=== PATIENT | female | born 1980 | race Caucasian/White ===

== ENCOUNTER 2023-09-12 21:43 | Emergency (ER) | payer BC, SELFPAY ==
[2023-09-12] VITALS (7 sets, daily range): BP systolic 118–142; BP diastolic 73–99; PULSE 95–119; RESP 13–20; TEMP 37.2; O2SAT 99–100; BMI 40.2
--- NOTE | 2023-09-12 21:57 | ECG_ITS ---
APPROVED REPORT Exam: Resting ECG HR:105 bpm ECG Measurements Heart Rate 105 AXES DE 158 P 62 QRSd 91 QRS 31 QT 315 T 58 QTc 376 Conclusion SINUS TACHYCARDIA Electronically signed by : RADHA RYAN, 09/15/2023 02:09:32
--- NOTE | 2023-09-12 22:00 | XR_ITS ---
PROCEDURE INFORMATION: Exam: XR Chest Exam date and time: 09/12/2023 11:01 PM Age: 43 years old Clinical indication: Other: Heart palpitations TECHNIQUE: Imaging protocol: Radiologic exam of the chest. Views: 2 views. COMPARISON: No relevant prior studies available. FINDINGS: Lungs: Calcified granuloma in the right upper lobe. Pleural spaces: No large effusion or pneumothorax. Heart/Mediastinum: No evidence of mediastinal widening or cardiac silhouette enlargement; the mediastinum and heart appear within normal limits for contour and size. Bones/joints: There is a dextroscoliotic curvature of the spine. IMPRESSION: No dense parenchymal consolidation, pleural effusion, or pneumothorax.
[2023-09-12 22:14] LABS: Basophils # 0.1 K/mm3 (0-0.2); Eosinophils # 0.3 K/mm3 (0.0-0.4); Eosinophils % 3.3 % (0.1-12.0); Hematocrit 44.2 % (37.0-47.0); Hemoglobin 14.3 g/dL (12.2-16.2); Lymphocytes % 21.5 % (10-50); Mean Corpuscular HGB Conc 32.3 g/dL (31.8-35.4); Mean Corpuscular Hemoglobin 27.7 pg (27.0-31.2); Mean Corpuscular Volume 85.8 fl (81-99); Mean Platelet Volume 7.4 fl (7.4-10.4); Monocytes # 0.5 K/mm3 (0.1-1.0); Monocytes % 5.4 % (1.7-9.3); Neutrophils # 6.5 K/mm3 (1.8-7.8); Neutrophils % 68.8 % (37.0-80.0); Platelet Count 305 K/mm3 (142-424); Red Blood Count 5.16 M/mm3 (4.20-5.40); Red Cell Distribution Width 14.4 % (11.5-17.5); White Blood Count 9.4 K/mm3 (4.8-10.8)
--- NOTE | 2023-09-12 22:14 | HMH.EDGENADL ---
Discharge Plan Disposition Patient Disposition: Home, Self-Care Condition: Good Chief Complaint: Arrhythmia/Palpitations Prescriptions Prescriptions: No Action Mirena 20 mcg/24 hours (5 yrs) 52 mg intrauterine device 1 device INTRAUTERI Referrals Follow up/Referrals: Ewelina Curry [Primary Care Provider] - See instructions Ricardo Fletcher MD [Staff Physician] - See instructions (Episode of palpitations, found to have sinus tachycardia of 130-160 at rest.) Clinical Impressions Clinical Impression: Sinus tachycardia Instructions Patient Instructions: DI for Palpitations Discharge ED Provider: Sukhwinder Lai General Adult HPI <Sukhwinder Lai MD - Last Filed: 09/12/23 23:31> General Chief complaint: Arrhythmia/Palpitations Stated complaint: palpitations Time Seen by Provider: 09/12/23 21:49 Mode of Arrival: Family Vehicle Source of Information: Patient Limitations: No Limitations Description of Symptoms (Recalled from ER Triage Doc. by RN): 43 yo female was sitting at home watching tv when she felt heart palpitations began and stated her smart watch began alarming high heart rate . patient revealed numbers to this nurse that showed a range of 115-169 beats per minute. states that this has never happened before and that she hasn't consumed caffeine or other stimulants today beyond coffee this morning. Does mention she has been on CONTRAVE x 2months. No medications taken daily other than contrave a biotin for her hair. NKA History of Present Illness HPI narrative: Is a 43-year-old female no relevant medical history presenting with tachycardia. Patient states that she was just sitting on the couch when she started feeling heart palpitations and my heart beating in my hands, and her watch sent her a notification telling her that she had a high heart rate. Patient has not been drinking caffeine today, was not up exerting herself. She denies any other symptoms including chest pain, shortness of breath, nausea vomiting, diaphoresis, weakness, fevers, chills, cough, or any other concerns at this time. Related Data Home Medications Medication Instructions Recorded Confirmed levonorgestrel 21 mcg/24 hours (8 1 device intrauterine 04/18/20 06/06/20 yrs) 52 mg intrauterine device (Mirena) Allergies Allergy/AdvReac Type Severity Reaction Status Date / Time No Known Allergies Allergy Verified 04/18/20 16:07 PFSH <Sukhwinder Lai MD - Last Filed: 09/12/23 23:31> [facility] Disclaimer: The information contained in this section may have been updated after the patient was seen, as this information can be updated by other users. Social History Smoking Status: Unknown if ever smoked alcohol intake: never current occupational status: employed Travel in the last 8 weeks: None <Sukhwinder Lai MD - Last Filed: 09/12/23 23:31> ROS Obtained: Yes All systems reviewed & no additional complaints except as documented Physical Exam <Sukhwinder Lai MD - Last Filed: 09/12/23 23:31> General General appearance: alert and in no apparent distress Head Head exam: atraumatic and normocephalic Eye Eye exam: Present normal appearance, PERRL and EOMI ENT ENT exam: Present mucous membranes moist Neck Neck exam: Present normal inspection, full ROM and trachea midline Respiratory Respiratory exam: Absent respiratory distress, wheezes, stridor, accessory muscle use or prolonged expiratory phase Cardiovascular Cardiovascular exam: Present normal rhythm and tachycardia Abdominal Exam Abdominal exam: Present soft; Absent distention, tenderness, guarding, rebound or rigidity Extremities Exam Extremities exam: Absent edema Neurological Exam Neurological exam: Present alert, oriented X3, CN II-XII intact and normal gait; Absent motor sensory deficit Skin Skin exam: Present warm and dry; Absent diaphoresis or erythema Medical Decision Making <Sukhwinder Lai MD - Last Filed: 09/12/23 23:31> Medical Records Medical records reviewed: Yes I reviewed the patient's medical records. Wai Inquiry Pt receiving controlled substance: No Wai was queried for this patient: No Vital Signs: 09/12/23 21:54 Temperature 98.9 F Temperature Source Oral Pulse Rate [Right Brachial] 119 H Respiratory Rate 16 Blood Pressure [Right Arm] 142/99 H Blood Pressure Mean [Right Arm] 113 Blood Pressure Source [Right Arm] Automatic Cuff Blood Pressure Position [Right Arm] Sitting 02 Sat by Pulse Oximetry 100 Oxygen Delivery Method Room Air Lab Data Lab Results 09/12/23 21:57: WBC 9.4, RBC 5.16, Hgb 14.3, Hct 44.2, MCV 85.8, MCH 27.7, MCHC 32.3, RDW 14.4, Plt Count 305, MPV 7.4, Neut % (Auto) 68.8, Lymph % (Auto) 21.5, Pettis % (Auto) 5.4, Eos % (Auto) 3.3, Baso % (Auto) 1.0, Neut # (Auto) 6.5, Lymph # (Auto) 2.0, Pettis # (Auto) 0.5, Eos # (Auto) 0.3, Baso # (Auto) 0.1, D-Dimer 0.46, Sodium 138, Potassium 3.9, Chloride 105, Carbon Dioxide 28, Anion Gap 8.9, BUN 15, Creatinine 1.10 H, Estimated Creat Clear 104, Estimated GFR 54 L, Est GFR ( Amer) 66, Glucose 92, Calcium 9.1, Total Bilirubin 0.3, AST 24, ALT 23, Alkaline Phosphatase 95, Troponin I < 0.01, Total Protein 7.1, Albumin 4.4, Globulin 2.7, Albumin/Globulin Ratio 1.6, TSH 2.70, Thyroxine (T4) 8.1, HCG, Quant < 2 09/13/23 01:05: Troponin I < 0.01 09/12/23 21:57 09/12/23 21:57 Orders (Tests/Meds): ED MEDICATIONS Discontinued Medications Generic Name Dose Route Start Last Admin Trade Name Freq PRN Reason Stop Dose Admin Lactated Ringer's 1,000 mls @ 999 mls/hr 09/12/23 22:21 09/12/23 22:25 Lactated Ringer's 1000 Ml Bag IV 09/12/23 23:21 999 mls/hr .Q1H1M ONE Administration ORDERS Category Date Time Status Chest XR 2 view (NOT portable) [XR chest 2V] Stat Exams 09/12/23 22:00 Completed Complete Blood Count Auto Diff Stat Lab 09/12/23 21:57 Completed Comprehensive Metabolic Panel Stat Lab 09/12/23 21:57 Completed D-Dimer Stat Lab 09/12/23 21:57 Completed HCG,Quantitative Stat Lab 09/12/23 21:57 Completed T4 (Thyroxine) Stat Lab 09/12/23 21:57 Completed Thyroid Stimulating Hormone Stat Lab 09/12/23 21:57 Completed Troponin I Q3H Lab 09/13/23 01:05 Completed Troponin I Q3H Lab 09/13/23 05:00 Ordered Troponin I Stat Lab 09/12/23 21:57 Completed HEART Score History (anamnesis): Slightly suspicious ECG: Normal Age: <45 years Risk factors: No known risk factors Troponin: </= normal limit HEART Score: 0 Medical Decision Narrative: Is a 43-year-old female no relevant medical history presenting with tachycardia. Patient states that she was just sitting on the couch when she started feeling heart palpitations and my heart beating in my hands, and her watch sent her a notification telling her that she had a high heart rate. Patient has not been drinking caffeine today, was not up exerting herself. She denies any other symptoms including chest pain, shortness of breath, nausea vomiting, diaphoresis, weakness, fevers, chills, cough, or any other concerns at this time. History was obtained via conversation with patient. On arrival, patient hemodynamically stable, alert, oriented x4, appropriate, GCS 15, moving all extremities spontaneously, pupils equal and reactive to light. Full physical exam performed and significant for tachycardic, but no acute distress. Mildly hypertensive, normal cardiopulmonary exam. Pulses equal and symmetric. Differential includes dehydration, infectious, metabolic, endocrinologic, PE, pneumothorax, among others. Workup independently interpreted and significant for no leukocytosis, dimer negative, initial troponin negative.. Independent interpretation of EKG demonstrated sinus tachycardia [address] or T wave changes concerning for acute ischemia. WA, QRS, QT intervals within normal limits. [place] normal. heart score 0. PERC positive for tachycardia. Years criteria negative. Prior to delta troponin reevaluation, care handed off to oncoming physician. Patient was placed in observation beginning at 10 PM in order to rule out evolving IA with delta troponins and determine need for admission versus home-going. The patient was provided monitoring and fluids while awaiting results. Prior to reevaluation, care handed off. <Leyla Earl MD - Last Filed: 09/13/23 03:11> Vital Signs: 09/12/23 21:54 Temperature 98.9 F Temperature Source Oral Pulse Rate [Right Brachial] 119 H Respiratory Rate 16 Blood Pressure [Right Arm] 142/99 H Blood Pressure Mean [Right Arm] 113 Blood Pressure Source [Right Arm] Automatic Cuff Blood Pressure Position [Right Arm] Sitting 02 Sat by Pulse Oximetry 100 Oxygen Delivery Method Room Air Lab Data Lab Results 09/12/23 21:57: WBC 9.4, RBC 5.16, Hgb 14.3, Hct 44.2, MCV 85.8, MCH 27.7, MCHC 32.3, RDW 14.4, Plt Count 305, MPV 7.4, Neut % (Auto) 68.8, Lymph % (Auto) 21.5, Pettis % (Auto) 5.4, Eos % (Auto) 3.3, Baso % (Auto) 1.0, Neut # (Auto) 6.5, Lymph # (Auto) 2.0, Pettis # (Auto) 0.5, Eos # (Auto) 0.3, Baso # (Auto) 0.1, D-Dimer 0.46, Sodium 138, Potassium 3.9, Chloride 105, Carbon Dioxide 28, Anion Gap 8.9, BUN 15, Creatinine 1.10 H, Estimated Creat Clear 104, Estimated GFR 54 L, Est GFR ( Amer) 66, Glucose 92, Calcium 9.1, Total Bilirubin 0.3, AST 24, ALT 23, Alkaline Phosphatase 95, Troponin I < 0.01, Total Protein 7.1, Albumin 4.4, Globulin 2.7, Albumin/Globulin Ratio 1.6, TSH 2.70, Thyroxine (T4) 8.1, HCG, Quant < 2 09/13/23 01:05: Troponin I < 0.01 Orders (Tests/Meds): ED MEDICATIONS Discontinued Medications Generic Name Dose Route Start Last Admin Trade Name Freq PRN Reason Stop Dose Admin Lactated Ringer's 1,000 mls @ 999 mls/hr 09/12/23 22:21 09/12/23 22:25 Lactated Ringer's 1000 Ml Bag IV 09/12/23 23:21 999 mls/hr .Q1H1M ONE Administration ORDERS Category Date Time Status Chest XR 2 view (NOT portable) [XR chest 2V] Stat Exams 09/12/23 22:00 Completed Complete Blood Count Auto Diff Stat Lab 09/12/23 21:57 Completed Comprehensive Metabolic Panel Stat Lab 09/12/23 21:57 Completed D-Dimer Stat Lab 09/12/23 21:57 Completed HCG,Quantitative Stat Lab 09/12/23 21:57 Completed T4 (Thyroxine) Stat Lab 09/12/23 21:57 Completed Thyroid Stimulating Hormone Stat Lab 09/12/23 21:57 Completed Troponin I Q3H Lab 09/13/23 01:05 Completed Troponin I Q3H Lab 09/13/23 05:00 Ordered Troponin I Stat Lab 09/12/23 21:57 Completed HEART Score HEART Score: 0 Medical Decision Narrative: Is a 43-year-old female no relevant medical history presenting with tachycardia. Patient states that she was just sitting on the couch when she started feeling heart palpitations and my heart beating in my hands, and her watch sent her a notification telling her that she had a high heart rate. Patient has not been drinking caffeine today, was not up exerting herself. She denies any other symptoms including chest pain, shortness of breath, nausea vomiting, diaphoresis, weakness, fevers, chills, cough, or any other concerns at this time. History was obtained via conversation with patient. On arrival, patient hemodynamically stable, alert, oriented x4, appropriate, GCS 15, moving all extremities spontaneously, pupils equal and reactive to light. Full physical exam performed and significant for tachycardic, but no acute distress. Mildly hypertensive, normal cardiopulmonary exam. Pulses equal and symmetric. Differential includes dehydration, infectious, metabolic, endocrinologic, PE, pneumothorax, among others. Workup independently interpreted and significant for no leukocytosis, dimer negative, initial troponin negative.. Independent interpretation of EKG demonstrated sinus tachycardia [address] or T wave changes concerning for acute ischemia. WA, QRS, QT intervals within normal limits. [place] normal. heart score 0. PERC positive for tachycardia. Years criteria negative. Prior to delta troponin reevaluation, care handed off to oncoming physician. Patient was placed in observation beginning at 10 PM in order to rule out evolving IA with delta troponins and determine need for admission versus home-going. The patient was provided monitoring and fluids while awaiting results. Prior to reevaluation, care handed off. Leyla Earl MD: On reevaluation, tachycardia had improved to approximately 110. Patient continued to not have shortness of breath or chest pain or other concerns subjectively aside from her mildly tachycardic heart rate. Discussed with her that her repeat troponin continues to be undetectable and we have not found any emergent causes of her tachycardia tonight however encouraged oral hydration and provided referral to cardiology. Also provided return precautions and instructions for self-care. Discharged while stable after ambulating in the emergency department. Critical Care <Sukhwinder Lai MD - Last Filed: 09/12/23 23:31> Critical Care Time Critical Care Time: No
[2023-09-12 22:20] LABS: Chloride 105 mmol/L (98-107)
[2023-09-12 22:21] LABS: D-Dimer 0.46 ug/mL (0.0-0.5); Potassium 3.9 mmoL/L (3.5-5.1); Sodium 138 mmol/L (136-145)
[2023-09-12 22:23] LABS: Alanine Aminotransferase 23 U/L (12-78); Albumin Level 4.4 g/dl (3.5-5.0); Alkaline Phosphatase 95 U/L (38-126); Anion Gap 8.9 mEq/L (5-15); Aspartate Amino Transferase 24 U/L (14-36); Bilirubin,Total 0.3 mg/dl (0.2-1.3); Blood Urea Nitrogen 15 mg/dl (7-17); Carbon Dioxide 28 mmol/L (22.0-30.0); Creatinine Clearance Estimated 104 mL/min (50-200); Estimated Glomerular Filt Rate 54 ml/min (>60); GFR (African American) 66 ML/MIN (>60)
[2023-09-12 22:24] LABS: Albumin/Globulin Ratio 1.6 (1.1-1.8); Calcium 9.1 mg/dl (8.4-10.2); Globulin 2.7 g/dL (1.3-3.2); Glucose 92 mg/dl (74-100); Total Protein,Serum 7.1 g/dl (6.3-8.2)
[2023-09-12] MEDS: LACTATED RINGERS 1000ML 1,000 ML 999 ML IV (22:25)
[2023-09-12 22:36] LABS: HCG,Quantitative < 2 mIU/ml (0-5.42)
[2023-09-12 22:42] LABS: T4 (Thyroxine) 8.1 ug/dl (5.53-11.0)
[2023-09-12 22:48] LABS: Troponin I < 0.01 ng/ml (0.00-0.034)
[2023-09-13] VITALS (8 sets, daily range): BP systolic 111–131; BP diastolic 72–79; PULSE 94–100; RESP 15–26; TEMP 36.8; O2SAT 100
[2023-09-13 01:35] LABS: Troponin I < 0.01 ng/ml (0.00-0.034)
== END 2023-09-13 03:16 | disposition home or self-care (01) ==
PROVIDERS: Emergency Provider Emergency Medicine; PCP Family Medicine
DX: R00.0 Tachycardia, unspecified (principal)
CPT/HCPCS: 71046; 80053; 84436; 84443; 84484; 84702; 85025; 85378; 93005; 96360; 99284

== ENCOUNTER 2023-12-01 11:02 | Outpatient (CLI) | payer BC, SELFPAY ==
[2023-12-01 11:30] LABS: Basophils # 0.1 K/mm3 (0-0.2); Basophils % 0.8 % (0.1-2.0); Eosinophils # 0.2 K/mm3 (0.0-0.4); Eosinophils % 3.4 % (0.1-12.0); Hematocrit 40.6 % (37.0-47.0); Hemoglobin 13.3 g/dL (12.2-16.2); Lymphocytes # 1.6 K/mm3 (0.7-4.5); Lymphocytes % 24.5 % (10-50); Mean Corpuscular HGB Conc 32.9 g/dL (31.8-35.4); Mean Corpuscular Hemoglobin 28.3 pg (27.0-31.2); Mean Corpuscular Volume 86.2 fl (81-99); Mean Platelet Volume 7.3 fl (7.4-10.4); Monocytes # 0.3 K/mm3 (0.1-1.0); Monocytes % 4.2 % (1.7-9.3); Neutrophils # 4.4 K/mm3 (1.8-7.8); Neutrophils % 67.2 % (37.0-80.0); Platelet Count 307 K/mm3 (142-424); Red Blood Count 4.71 M/mm3 (4.20-5.40); Red Cell Distribution Width 14.5 % (11.5-17.5); White Blood Count 6.5 K/mm3 (4.8-10.8)
[2023-12-01 12:18] LABS: Alanine Aminotransferase 28 U/L (12-78); Albumin Level 4.4 g/dl (3.5-5.0); Albumin/Globulin Ratio 1.6 (1.1-1.8); Alkaline Phosphatase 71 U/L (38-126); Anion Gap 14.3 mEq/L (5-15); Aspartate Amino Transferase 24 U/L (14-36); Bilirubin,Total 0.5 mg/dl (0.2-1.3); Blood Urea Nitrogen 12 mg/dl (7-17); Calcium 9.5 mg/dl (8.4-10.2); Carbon Dioxide 25 mmol/L (22.0-30.0); Chloride 104 mmol/L (98-107); Chol/HDL Ratio 2.5 (1-3.5); Cholesterol 182 mg/dl (140-200); Estimated Glomerular Filt Rate 78 ml/min (>60); GFR (African American) 95 ML/MIN (>60); Globulin 2.7 g/dL (1.3-3.2); Glucose 99 mg/dl (74-100); HDL Cholesterol 72 mg/dl (40-60); Potassium 4.3 mmoL/L (3.5-5.1); Sodium 139 mmol/L (136-145); Total Protein,Serum 7.1 g/dl (6.3-8.2); Triglycerides 64 mg/dl (30-150); VLDL Cholesterol 13 mg/dL (0-40)
[2023-12-01 12:29] LABS: Direct LDL Cholesterol 95.31 mg/dL (100-129)
[2023-12-01 12:36] LABS: Free Thyroxine Index 1.9 ug/dL (5.93-13.13); Triiodothryronine (T3) Uptake 32 % (23.5-40.5)
[2023-12-01 12:50] LABS: Thyroid Stimulating Hormone 2.02 uIU/mL (0.465-4.68)
[2023-12-02 08:28] LABS: Estradiol 86.3 pg/mL (.); FSH 4.3 mIU/mL (.); LH 5.8 mIU/mL (.)
[2023-12-04 17:03] LABS: HSV-1 DNA Negative (Negative); HSV-2 DNA Negative (Negative)
[2023-12-06 15:54] LABS: Testosterone,Free 5.5 pg/mL (0.0-4.2)
== END 2023-12-01 23:59 | disposition home or self-care (01) ==
LOC: LAB 11:03
PROVIDERS: PCP Family Medicine; Visit Provider Nurse Practitioner Obstetrics & Gynecology
DX: Z01.419 Encounter for gynecological examination (general) (routine) without abnormal findings (principal); E34.9 Endocrine disorder, unspecified; Z79.899 Other long term (current) drug therapy
CPT/HCPCS: 36415; 80053; 80061; 82670; 83001; 83002; 84402; 84436; 84443; 84479; 85025; 87529

== ENCOUNTER 2023-12-21 13:44 | Outpatient (CLI) | payer BC, SELFPAY ==
--- NOTE | 2023-12-21 13:47 | US_ITS ---
PROCEDURE: US TRANSVAGINAL CLINICAL INDICATION: pcos COMPARISON: No exams were available for comparison FINDINGS: Transvaginal sonographic images of the pelvis were obtained. UTERUS: 8.9cm x 4.8 cmx 3.6 cm with a combined endometrial thickness of 6.6mm. There is an IUD in the correct position within the uterine cavity. At the fundus of the uterus there are some areas that appear inhomogeneous. There are multiple nabothian cysts in the cervix. A scar is seen. LEFT OVARY: 3.0cmx1.8 cmx2.0cm with a volume of 5.8ml. There is a small follicle measuring 0.7 cm x 0.7 cm. RIGHT OVARY: 2.6 cmx 2.2cmx2.3cm with a volume of 6.7ml. Both ovaries are seen and appear normal. Doppler flow to both ovaries are seen. There is no fluid in the cul-de-sac. IMPRESSION: 1. Anteverted uterus normal in shape and size. 2. There is an IUD within the uterus in the correct position. 3. Both ovaries are seen and appear normal. There is a small 7 mm follicle in the left ovary. 4. No fluid in the cul-de-sac. Dictated by: Quoc Lozano MD 12/21/2023 17:55 Quoc Lozano MD in [place] 12/21/2023 17:55
== END 2023-12-21 23:59 | disposition home or self-care (01) ==
LOC: RAD 13:44
PROVIDERS: PCP Family Medicine; Visit Provider Nurse Practitioner Obstetrics & Gynecology
DX: E28.2 Polycystic ovarian syndrome (principal)
CPT/HCPCS: 76830

== ENCOUNTER 2024-11-12 10:33 | Emergency (ER) | payer BC, SELFPAY ==
--- NOTE | 2024-11-12 10:36 | XR_ITS ---
PROCEDURE INFORMATION: Exam: XR Chest Exam date and time: 11/12/2024 10:53 AM Age: 44 years old Clinical indication: Pain; Chest pressure; Additional info: Cp, increased heart rate x 1 day TECHNIQUE: Imaging protocol: Radiologic exam of the chest. Views: 1 view. COMPARISON: CR XR CHEST 2V 09/12/2023 11:01 PM FINDINGS: Lungs: The chest is hypoventilatory but clear. Pleural spaces: Unremarkable. No pleural effusion. No pneumothorax. Heart/Mediastinum: The heart is normal in size. Bones/joints: Unremarkable. IMPRESSION: No acute findings.
--- NOTE | 2024-11-12 10:38 | ECG_ITS ---
APPROVED REPORT Exam: Resting ECG HR:73 bpm ECG Measurements Heart Rate 73 AXES DE 143 P 48 QRSd 84 QRS 6 QT 370 T 21 QTc 397 Conclusion SINUS RHYTHM LOW QRS VOLTAGE IN PRECORDIAL LEADS [QRS DEFLECTION < 1.0 mV IN CHEST LEADS] BORDERLINE ECG UNCONFIRMED REPORT Electronically signed by : GEETA LAZO, 11/13/2024 23:44:04
[2024-11-12 10:43] VITALS: BP 136/81; PULSE 72; RESP 16; TEMP 37.3; O2SAT 100; BMI 39.3
--- OUTSIDE RECORDS SUMMARY | 2024-11-12 10:48 | XMS_ITS | Continuity of Care Document ---
Author Organization SHAUN - KRISTIE [facility] & [place], [facility] Address [address] [place] [address] Care Team Providers Care Knitter Wire Mesh Name Role Phone FERNANDO TAN Primary Care Provider Assessment No assessment recorded. Plan of Treatment Reminders Order Date Submit Date Provider Last Modified By Organization Details Last Modified Time Details Appointments OV EST 30 2024 10:00A M Anton Bush MD Not available Not available Not available OV EST 2024 01:20P M Lico Hairston MD Not available Not available Not available Lab None recorded. Referral None recorded. Procedures esophagog astroduod enoscopy with biopsy (PROC) - PHYSICIAN ORDERS1. Ensure patient is NPO.0.9% normal saline @kvo preferabl y in right arm; IV patent to gravity.3 . verify consent. EGD with possible biopsy with possible dilation. 4. On-Call to Endoscopy .5. Draw pt/inr if patient on Coumadin Hold 2024 025 [email or web address] 60 [facility] [address] [place] [address] , [place], [address], 10/19/2024 11:07:42 Surgeries None recorded. Imaging None recorded. Medication Orders None recorded. Patient TargetsNo targets recorded. Patient Instructions Encounter Date Encounter Id Patient Instructions Last Modified By Organization Details Last Modified Time 10/19/2024 [id number] GERD diet education [email or web address] Not available 10/19/2024 09:44:08 Reason for Referral None Reported. Results Created Date Observation Date Name Description Value Unit Range Abnormal Flag Note LastModifiedBy Organization Detail LastModifiedTime 09/30/19 elect rocar diogr am No observ ation record ed. SANGEETHA Garnett [address], [place], [address], 09/29/2024 11:08:21 09/30/19 25 09/29/2024 elect rocar diogr am No observ ation record ed. [email or web address] Not Available 2024 11:30:13 Result Notes None recorded. Problems Name Problem SNOMED Code Status Onset Date Resolution Date Notes Provider Name and Address Organization Details Recorded Time Palpitations 84120969 Active 2024 Anton Bush MD [address] [place] [address],[place] te [address] [place] [address], [address], [place] - [facility] & [place] 5 11:20:17 Tachycardia 9300700 Active 2024 Anton Bush MD [address] [place] [address],[place] [address] [place] [address], [address], [place] - [facility] & [place] 5 11:20:21 Gastric reflux 632234045 Active 2024 Anton Bush MD [address] [place] [address],[place] [address] [place] [address], [address], [place] - [facility] - [place] & [place] 5 11:20:32 Generalized anxiety disorder 70094203 Active 2024 Anton Bush MD [address] [place] [address],[place] [address] [place] [address], [address], [place] - [facility] & [place] 5 11:20:54 Gastroesophage al reflux disease without esophagitis 410935516 Active 2024 Lico Hairston MD [address] [place] [address],[place] [address], [place], [address], [place] - [facility] & [place] 5 09:21:03 Chest pain 09819943 Active 2023 Anton Bush MD [address] [place] [address],[place] [address], [place], [address], [facility] & [place] 4 15:26:54 Obesity 701120656 Active 2023 Anton Bush MD [address] [facility], [place], [address], [facility] & [place] 4 15:26:59 Problem Notes None recorded. Procedures Surgical History Date Name Laterality Status Provider Name and Address Organization Details Recorded Time 7 Nurse'S Companion Surgery completed Ghada Gonzalez [facility] & [place] 10/19/2024 09:08:03 Caesarean Section completed Jesenia Ramirez [facility] & [place] 03/14/2024 08:26:33 Imaging Results None recorded. Procedure Notes None recorded. Medical Equipment None Reported. Allergies No known drug allergies Medications Name Sig Start Date Stop Date Status Note LastModified by Organization Details LastModified Time buspirone 5 mg tablet TAKE ONE (1) TABLET THREE (3) TIMES A DAY BY ORAL ROUTE NEEDED. 10/19 completed Not Available Not Available Not Available Celexa 10 mg tablet Take 1 tablet every day by oral route. 09/29 completed Not Available Not Available Not Available naltrexone 50 mg tablet TAKE ONE (1) TABLET DAILY. PLEASE DO NOT FILL IF NOT PICKED UP WITHIN 30 DAYS. 09/29 completed Not Available Not Available Not Available spironolact one 100 mg tablet TAKE ONE TABLET BY MOUTH EVERY DAY 10/19 completed Not Available Not Available Not Available omeprazole 40 mg capsule,del ayed release TAKE ONE (1) CAPSULE EVERY DAY BY ORAL ROUTE. active Not Available Not Available No t Available ondansetron [address] ing tablet PLACE ONE (1) TABLET(S) BY TRANSLING UAL ROUTE , EVERY 8 HOURS , FOR 10 DAYS , NEEDED FOR NAUSEA 09/29 completed Not Available Not Available Not Available citalopram 20 mg tablet TAKE 1 TABLET BY MOUTH EVERY DAY active Not Available Not Available No t Available famotidine 20 mg tablet TAKE ONE (1) TABLET TWICE A DAY BY ORAL ROUTE. 10/19 completed Not Available Not Available Not Available metoprolol succinate ER 25 mg tablet,exte nded release 24 hr TAKE 1 TABLET BY MOUTH EVERY DAY active Not Available Not Available No t Available bupropion HCl XL 300 mg 24 hr tablet, extended release TAKE ONE (1) TABLETS DAILY. PLEASE DO NOT FILL IF NOT PICKED UP WITHIN 30 DAYS. 09/29 completed Not Available Not Available Not Available Vitals Date Recorded Body height Body mass index (BMI) Body weight Body temperature Oxygen saturation Oxygen saturation in Arterial blood by Pulse oximetry Heart rate Respiratory rate Systolic blood pressure Diastolic blood pressure Provider Name and Address Organization Details Last Updated DateTime 157.48 cm 40.2 kg/m2 92454.6 g 98 [degF] 98 % 98 % 60 /min 16 /min 116 mm[Hg] 72 mm[Hg] Ghada Gonzalez [facility] & [place] 09:07:24 Social History Question Answer Notes LastModified by [employer] Details LastModified Time Tobacco Smoking Status Never Smoker Ghada Gonzalez [facility] & [place] 10/19/2024 09:07:55 What Is Your Level Of Alcohol Consumption? Occasional Information not available 10/19/2024 What Is Your Level Of Caffeine Consumption? Moderate [email or web address] Information not available 10/19/2024 What Type Of Diet Are You Following? REGULAR Stays Away From Fried, Spicy Food Information not available 10/19/2024 What Was The Date Of Your Most Recent Tobacco Screening? 09/27/2024 [email or web address] Information not available 10/19/2024 Are You Passively Exposed To Smoke? No [email or web address] Information not available 10/19/2024 Do You Use Any Illicit Or Recreational Drugs? No Information not available 10/19/2024 Do You Or Have You Ever Used Any Other Forms Of Tobacco Or Nicotine? No Information not available 10/19/2024 Sex: Unknown Functional Status Question Answer Note LastModified by [employer] Details LastModified Time What is your exercise level? Occasional [email or web address] Information not available 10/19/2024 Mental Status None recorded. Family History Relationship Description Onset Age of this Age Resolved Age Notes LastModified by Organization Details LastModified Time Father Hypertensive disorder [email or web address] Not available 08:26:01 Father Diabetes mellitus [email or web address] Not available 2024 08:57:13 Medical History Condition Response None Y Gynecological HistoryNo gynecological history recorded. Obstetrics History GPAL:G 0 P 0 0 0 0 Past Encounters Encounter ID Performer Location Encounter Start Date Encounter Closed Date Diagnosis/Indication Diagnosis SNOMED-CT Code Diagnosis ICD10 Code Diagnosis Note [id number] Anton Bush MD [address] [place] [address] 09/29/2024 10:48:24 09/29/2024 11:17:25 Chest pain 58521645 R07.9 Palpitations 20143538 R0 0.2 Tachycardia 8199642 R00. 0 Gastric reflux 440631678 K21.9 Generalize d anxiety disorder 74918370 F41.1 [id number] Lico Hairston MD [facility] erology [address] [place] [address],[address] [place] [address] 10/19/2024 08:55:23 10/19/2024 09:27:50 Gastroesophageal reflux disease without esophagitis 587157239 K21.9 the patient is fairly typical gastroesop hageal reflux disease including excessive belching. Symptomati odilia improved with higher dose PPI therapy but not resolved. Continue PPI therapy lifestyle modificati ons reviewed with the patient at length, written informatio n provided. Schedule EGD for evaluation . Specific recommenda tions reduce caffeine intake avoid highly spiced and high fat foods made to patient. Further recommenda tions post endoscopy. Health Concerns Section Related Observation LastModified by Organization Detai ls LastModified Time None Recorded Concern Status LastModified by Organization Details LastModified Time None Recorded Payers Encounter Date Sequence Insurance Name Policy Number Policy Graham Covered Member ID Graham Member ID Guarantor Name 10/19/2024 1 [employer]SHAUN: TRE[place] (PPO) [id number] Nicole Leyva [id number] Nicole Leyva Notes Date Note Type Note Provider Name and Address Organization Details Recorded Time 10/19/2024 text/html A 44-year-old wh o is referred for evaluation abdominal bloating. The patient actually reports that what she has been experiencing is a pressure in her upper abdomen typically occurring postprandially associated with heartburn and excessive belching. The patient has had chest tightness associated with this. Has been seen by Cardiology who felt this was noncardiac related started the patient on a higher dose proton pump inhibitor and her symptoms have improved very significantly but not resolved. The patient takes in a fairly high amount of caffeine daily, as well as eats highly spiced foods which are triggers for her symptoms. The patient denies dysphagia, Lico Hairston MD [address] [facility],[address], [place], [address], [facility] - [facility] & [place] 10/19/2024 09:48:25 OBGyn Episode No OBEpisode recorded.
--- OUTSIDE RECORDS SUMMARY | 2024-11-12 10:48 | XMS_ITS | Continuity of Care Document ---
Author Organization SHAUN - [facility] - [place] & [place], [facility] Address [address] [address] Care Team Providers Care Drone Operator Name Role Phone FERNANDO TAN Primary Care Provider Assessment Encounter Date Assessment Date Assessment LastModified by Organization Details LastModified Time 09/29/2024 09/29/2024 patient has been having burning in the chest. It depends on what she eats. She was on over the counter omeprazole and then started taking Pepcid. I think she should be on prescription strength omeprazole 40 mg and I do agree with her seeing gastroenterolog y. EKG today shows sinus bradycardia with a heart rate of 59 with poor R-wave progression but no ST or T-wave changes. Palpitations are much improved with the metoprolol. Some of this may also have a component of anxiety. She has not having shortness of breath. No edema. No orthopnea or PND. Her examination is unremarkable Patient Education was printed, I have reviewed the Past Medical, Family, and Social Histories along with ROS and all orders in today's record, and have noted any changes. Medications, charts and records reviewed in full today. - EKG today reveals Sinus bradycardia with a heart rate of 59. Poor R-wave progression. No ST or T-wave changes I had a Zio monitor placed on her a couple of weeks ago. At that time the Zio monitor shows no arrhythmia. Average heart rate 89. - LAST ECHO: None on file. LAST ISCHEMIC EVAL: None on file. LAST HEART CATH: None on file. LAST LDL: None on file. LAST CNI: None on file. PAST LHC: None on file. - Plan: Continue metoprolol. Symptoms improved Change reflux medication to omeprazole 40 mg daily GI evaluation as scheduled Encourage regular exercise and activity Avoid excessive caffeine Follow-up in Cardiology Clinic in 8-10 weeks This note was dictated using [employer] software. If something is unclear, or does not make sense, please do not hesitate to contact our office at [phone] for clarification. [email or web address] Not available 09/29/2024 11:21:36 Plan of Treatment Reminders Order Date Submit Date Provider Last Modified By Organization Details Last Modified Time Details Appointments OV EST 30 2024 10:00A Katheryn Bush MD Not available Not available Not available OV EST 2024 01:20P Katheryn Hairston MD Not available Not available Not available Lab None recorded. Referral None recorded. Procedures None recorded. Surgeries None recorded. Imaging electroca rdiogram [email or web address], [place], [address], 09/29/2024 11:21:49 Medication Orders omeprazol e 40 mg capsule,d elayed release 2024 025 [facility], [address] [place] [address], [place], [address], 09/29/2024 11:21:50 Patient TargetsNo targets recorded. Patient InstructionsNo instructions recorded. Reason for Referral None Reported. Results Created Date Observation Date Name Description Value Unit Range Abnormal Flag Note LastModifiedBy Organization Detail LastModifiedTime 09/30/19 elect rocar diogr am No observ ation record ed. SANGEETHA [address], [place], [address], 09/29/2024 11:08:21 09/30/1909/29/2024 elect rocar diogr am No observ ation record ed. [email or web address] Not Available 2024 11:30:13 Result Notes None recorded. Problems Name Problem SNOMED Code Status Onset Date Resolution Date Notes Provider Name and Address Organization Details Recorded Time Palpitations 25566448 Active 2024 Anton Bush MD [address] [place] [address],[place] [address] [place] [address], [address], [place] - [facility] - [place] & [place] 5 11:20:17 Tachycardia 2313800 Active 2024 Anton Bush MD [address] [place] [address],[place] [address] [place] [address], [address], [place] - [facility] - [place] & [place] 5 11:20:21 Gastric reflux 266295139 Active 2024 Anton Bush MD [address] [place] [address],[place] [address] [place] [address], [address], [place] - [facility] - [place] & [place] 5 11:20:32 Generalized anxiety disorder 28008445 Active 2024 Anton Bush MD [address] [place] [address],[place] [address] [place] [address], [address], [place] - [facility] - [place] & [place] 5 11:20:54 Gastroesophage al reflux disease without esophagitis 582518828 Active 2024 Lico Hairston MD [address] [place] [address],[place] [address] [place] [address], [address], [place] - [facility] - [place] & [place] 5 09:21:03 Chest pain 74352418 Active 2023 Anton Bush MD [address] [place] [address],[place] [place] [address], [address], [place] - [facility] - [place] & [place] 4 15:26:54 Obesity 848014780 Active 2023 Anton Bush MD [address] [place] [address],[place] [address] [place] [address], [address], [place] - [facility] - [place] & [place] 4 15:26:59 Problem Notes None recorded. Procedures Surgical History Date Name Laterality Status Provider Name and Address Organization Details Recorded Time 7 Arborer Surgery completed Ghada Gonzalez [place] - [facility] - [place] & [place] 10/19/2024 09:08:03 Caesarean Section completed Jesenia Ramirez [place] - [facility] - [place] & [place] 03/14/2024 08:26:33 Imaging Results Imaging Date Name Status LastModified by Organization Details LastModified Time 09/29/2024 electrocardiogram completed SANGEETHA [facility] [address], [place], [address], 09/29/2024 11:08:21 Procedure Notes None recorded. Medical Equipment None [...] height Body mass index (BMI) Body weight Oxygen saturation Oxygen saturation in Arterial blood by Pulse oximetry Heart rate Systolic blood pressure Diastolic blood pressure Provider Name and Address Organization Details Last Updated DateTime 157.48 cm 39.4 kg/m2 85505.8 g 98 % 98 % 59 /min 120 mm[Hg] 64 mm[Hg] Sanam Hdez [facility] & [place] 11:00:24 Social History Question Answer Notes LastModified by [employer] Details LastModified Time Tobacco Smoking Status Never Smoker Ghada garcia, SHAUN Zaragoza [facility] & [place] 10/19/2024 09:07:55 What Is Your Level Of Alcohol Consumption? Occasional [email or web address] Information not available 10/19/2024 What Is Your Level Of Caffeine Consumption? Moderate [email or web address] Information not available 10/19/2024 What Type Of Diet Are You Following? REGULAR Stays Away From Fried, Spicy Food [email or web address] Information not available 10/19/2024 What Was The Date Of Your Most Recent Tobacco Screening? 09/27/2024 Information not available 10/19/2024 Are You Passively Exposed To Smoke? No [email or web address] Information not available 10/19/2024 Do You Use Any Illicit Or Recreational Drugs? No [email or web address] Information not available 10/19/2024 Do You Or Have You Ever Used Any Other Forms Of Tobacco Or Nicotine? No [email or web address] Information not available 10/19/2024 Sex: Unknown Functional Status Question Answer Note LastModified by [employer] Details LastModified Time What is your exercise level? Occasional [email or web address] Information not available 10/19/2024 Mental Status None recorded. Family History Relationship Description Onset Age of this Age Resolved Age Notes LastModified by Organization Details LastModified Time Father Hypertensive disorder Not available 08:26:01 Father Diabetes mellitus [email or web address] Not available 2024 08:57:13 Medical History Condition Response None Y Gynecological HistoryNo gynecological history recorded. Obstetrics History GPAL:G 0 P 0 0 0 0 Past Encounters Encounter ID Performer Location Encounter Start Date Encounter Closed Date Diagnosis/Indication Diagnosis SNOMED-CT Code Diagnosis ICD10 Code Diagnosis Note [id number] Anton Bush MD [address] [place] [address] 09/29/2024 10:48:24 09/29/2024 11:17:25 Chest pain 88866361 R07.9 Palpitations 57432692 R0 0.2 Tachycardia 3852833 R00. 0 Gastric reflux 211037465 K21.9 Generalize d anxiety disorder 04395154 F41.1 Health Concerns Section Related Observation LastModified by Organization Detai ls LastModified Time None Recorded Concern Status LastModified by Organization Details LastModified Time None Recorded Payers Encounter Date Sequence Insurance Name Policy Number Policy Graham Covered Member ID Graham Member ID Guarantor Name 09/29/2024 1 [employer]SHAUN: [place] BL[place] (PPO) [id number] Nicole Leyva [id number] Nicole Leyva Notes Date Note Type Note Provider Name and Address Organization Details Recorded Time 09/29/2024 text/html Patient is here for palpitations and fluttering of the heart. She has also had some burning in the chest. Substernal and burning. She was here before and was having palpitations. They were very brief. Also with indigestion. No other issues. We did an EKG which looked good at that time. She started feeling better. We gave her reassurance that the EKG looked good but now the symptoms have increased. Secondary to this she called and I placed her on metoprolol. Since being on metoprolol she feels much better but she still is having burning in the chest depending on what she eats. She is going to see gastroenterology in October Anton Bush MD [address] [facility],[address], [place], [address], [facility] - [place] & [place] 09/29/2024 11:22:08 OBGyn Episode No OBEpisode recorded.
--- OUTSIDE RECORDS SUMMARY | 2024-11-12 10:48 | XMS_ITS | Data Portability ---
Author Organization [place] - [facility] & [place] [facility] Address [address] [place] [address] Care Team Providers Care Building Inspector Name Role Phone FERNANDO TAN Primary Care Provider [phone] Assessment Encounter Date Assessment Date Assessment LastModified by Organization Details LastModified Time 03/14/2024 03/14/2024 exam is normal. EKG shows normal sinus rhythm with poor R-wave progression and low voltage chronic pulmonary pattern. His may be secondary to body habitus. No ST or T-wave changes. One episode palpitations. One episode of chest pain which she thinks was reflux she has not any further symptoms. She has no risk factors for coronary disease. She is 43-year-old female. No hypertension, diabetes or hyperlipidemia. She does not smoke. I think at this time we will monitor the symptoms. If she starts having further palpitations or fluttering place a monitor. I gave her reassurance the EKG looks okay. With no risk factors only 1 episode of chest pain which she attributes to reflux we can watch this and see her back as needed at the symptoms occur again. She is agreeable to this. I am not going to make any other changes in the medical regimen or add anything. We will monitor her symptoms and keep the door open in case she has symptoms and wants to come back Meds and chart reviewed in full today Avoid excessive caffeine Encourage exercise and weight loss Monitor cardiac symptoms Follow-up in Cardiology Clinic as needed No further cardiac testing needed at this time monitor the symptoms EKG today shows normal sinus rhythm with poor R-wave progression and low voltage but no ST or T-wave changes [email or web address] Not available 03/16/2024 15:26:49 09/29/2024 09/29/2024 patient has been having burning [...] 8-10 weeks This note was dictated using [employer] software. If something is unclear, or does not make sense, please do not hesitate to contact our office at [phone] for clarification. [email or web address] Not available 09/29/2024 11:21:36 Plan of Treatment Reminders Order Date Submit Date Provider Last Modified By Organization Details Last Modified Time Details Appointments OV EST 30 2024 10:00A Katheryn Bush MD Not available Not available Not available OV EST 10 2024 01:20P Katheryn Hairston MD Not available [...] on Coumadin Hold 2024 025 [email or web address] 60 Frost (Outpatient Surgery), [address] [place] [address] , [place], [address], 10/19/2024 11:07:42 Surgeries None recorded. Imaging electroca rdiogram [address], [place], [address], 09/29/2024 11:21:49 electroca rdiogram 2023 [email or web address], [place], [address], 03/16/2024 15:27:15 Medication Orders omeprazol e 40 mg capsule,d elayed release 2024 025 [facility], [address] [place] [address], [place], [address], 09/29/2024 11:21:50 Patient TargetsNo targets recorded. Patient Instructions Encounter Date Encounter Id Patient Instructions Last Modified By Organization Details Last Modified Time 10/19/2024 [id number] GERD diet education [email or web address] Not available 10/19/2024 09:44:08 Reason for Referral None Reported. Results Created Date Observation Date Name Description Value Unit Range Abnormal Flag Note LastModifiedBy Organization Detail LastModifiedTime 11/04/1911/03/2024 UR HCG QUAL note See Note Order ing Provi lorin: Elbert pacheco MD Not Available [address] , [place], [address], 11/03/2024 09:42:31 11/04/1911/03/2024 UR HCG QUAL ur HCG qual NEGATI VE negati ve Not Available [address] , [place], [address], 11/03/2024 09:42:31 11/04/19 25 11/03/2024 UR HCG QUAL performing lab see note ML - [facility] R [address] [facility] [place] [address] Not Available [address] , [place], [address], 11/03/2024 09:42:31 03/14/20 24 elect rocar diogr am No observ ation record ed. SANGEETHA Garnett [address], [place], [address], 03/14/2024 08:27:10 03/14/20 24 elect rocar diogr am No observ ation record ed. [email or web address] Not Available 09:50:53 09/30/19 25 elect rocar diogr am No observ ation record ed. SANGEETHA Garnett [address], [place], [address], 09/29/2024 11:08:21 09/30/19 25 09/29/2024 elect rocar diogr am No observ ation record ed. [email or web address] Not Available 2024 11:30:13 Result Notes None recorded. Problems Name Problem SNOMED Code Status Onset Date Resolution Date Notes Provider Name and Address Organization Details Recorded Time Palpitations 16018876 Active 2024 Anton Bush MD [address] [place] [address],[address], [place], [address], [facility] [place] 11:20:17 Tachycardia 0669267 Active 2024 Anton Bush MD [address] [place] [address],[address], [place], [address], [place] [facility] [place] 5 11:20:21 Gastric reflux 179491487 Active 2024 Anton Bush MD [address] [place] [address],[address], [address], [place] [facility] [place] 5 11:20:32 Generalized anxiety disorder 35876830 Active 2024 Anton Bush MD [address] [place] [address],[address], [address], [place] [facility] [place] & [place] 5 11:20:54 Gastroesophage al reflux disease without esophagitis 426373695 Active 2024 Lico Hairston MD [address] [place] [address],[address], [address], [place] [facility] [place] & [place] 5 09:21:03 Chest pain 57278913 Active 2023 Anton Bush MD [address] [place] [address],[address], [address], [place] [facility] [place] 4 15:26:54 Obesity 158106091 Active 2023 Anton Bush MD [address] [place] [address],[address], [address], [place] [facility] [place] & [place] 4 15:26:59 Problem Notes None recorded. 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 Ghada Gonzalez [place] [facility] [place] & [place] 10/19/2024 09:08:03 Caesarean Section completed Jesenia Ramirez [place] [facility] [place] 03/14/2024 08:26:33 Imaging Results Imaging Date Name Status LastModified by Organization Details LastModified Time 03/14/2024 electrocardiogram completed SANGEETHA Garnett [facility] [address] [place] [address] [address], [place], [address], 03/14/2024 08:27:10 03/14/2024 electrocardiogram completed [email or web address] Info rmation not available 03/14/2024 09:50:53 09/29/2024 electrocardiogram completed SANGEETHA [address], [place], [address], 09/29/2024 11:08:21 09/29/2024 electrocardiogram completed [email or web address] Informa tion not available 09/29/2024 11:30:13 Procedure Notes None recorded. Medical Equipment None [...] and Address Organization Details Last Updated DateTime 4 157.48 cm 41.2 kg/m2 796120. 28 g 99 % 99 % 74 /min 124 mm[Hg] 82 mm[Hg] Jesenia Gentile eric [facility] & [place] 4 08:27:28 Date Recorded Body height Body mass index (BMI) Body weight Oxygen saturation Oxygen saturation in Arterial blood by Pulse oximetry Heart rate Systolic blood pressure Diastolic blood pressure Provider Name and Address Organization Details Last Updated DateTime 5 157.48 cm 39.4 kg/m2 47251.8 g 98 % 98 % 59 /min 120 mm[Hg] 64 mm[Hg] Sanam Lemuel [facility] & [place] 5 11:00:24 Date Recorded Body height Body mass index (BMI) Body weight Body temperature Oxygen saturation Oxygen saturation in Arterial blood by Pulse oximetry Heart rate Respiratory rate Systolic blood pressure Diastolic blood pressure Provider Name and Address Organization Details Last Updated DateTime 5 157.48 cm 40.2 kg/m2 20821.6 g 98 [degF] 98 % 98 % 60 /min 16 /min 116 mm[Hg] 72 mm[Hg] Ghada Gonzalez [facility] & [place] 5 09:07:24 Social History Question Answer Notes LastModified by Organizat ion Details LastModified Time Tobacco Smoking Status Never Smoker Ghada Gonzalez [facility] & [place] 10/19/2024 09:07:55 What Is Your Level Of Alcohol Consumption? Occasional [email or web address] Information not available 10/19/2024 What Is Your Level Of Caffeine Consumption? Moderate [email or web address] Information not available 10/19/2024 What Type Of Diet Are You Following? REGULAR Stays Away From Fried, Spicy Food [email or web address] Information not available 10/19/2024 What Was The Date Of Your Most Recent Tobacco Screening? 09/27/2024 [email or web address] Information not available 10/19/2024 Are You Passively Exposed To Smoke? No [email or web address] Information not available 10/19/2024 Do You Use Any Illicit Or Recreational Drugs? No [email or web address] Information not available 10/19/2024 Do You Or Have You Ever Used Any Other Forms Of Tobacco Or Nicotine? No [email or web address] Information not available 10/19/2024 Sex: Unknown Functional Status Question Answer Note LastModified by Organizat ion Details LastModified Time What is your exercise level? Occasional [email or web address] Information not available 10/19/2024 Mental Status None recorded. Family History Relationship Description Onset Age of this Age Resolved Age Notes LastModified by Organization Details LastModified Time Father Hypertensive disorder [email or web address] Not available 08:26:01 Father Diabetes mellitus [email or web address] Not available 2024 08:57:13 Medical History Condition Response None Y Gynecological HistoryNo gynecological history recorded. Obstetrics History GPAL:G 0 P 0 0 0 0 Past Encounters Encounter ID Performer Location Encounter Start Date Encounter Closed Date Diagnosis/Indication Diagnosis SNOMED-CT Code Diagnosis ICD10 Code Diagnosis Note [id number] Anton Bush MD [address] [place] [address] 6 03/14/2024 08:11:06 03/14/2024 08:42:48 Palpitations 22961292 R00.2 Chest pain 65471397 R07. 9 Obesity 396438499 E66.9 [id number] Anton Bush MD [address] [place] [address] 6 09/29/2024 10:48:24 09/29/2024 11:17:25 Chest pain 83119690 R07.9 Palpitations 47537876 R0 0.2 Tachycardia 1829447 R00. 0 Gastric reflux 712949736 K21.9 Generalize d anxiety disorder 16602960 F41.1 [id number] Lico Hairston MD [facility] [address] [place] [address],[place] [phone] 10/19/2024 08:55:23 10/19/2024 09:27:50 Gastroesophageal reflux disease without esophagitis 219014485 K21.9 the patient is fairly typical gastroesop [...] by Organization Details LastModified Time None Recorded Advance Directives Directive None Recorded Payers Insurance Date Sequence Insurance Name Policy Number Policy Graham Covered Member ID Graham Member ID Guarantor Name 11/09/2024 1 [place] [id number] Nicole Leyva [id number] Nicole Leyva Notes Date Note Type Note Provider Name and Address Organization Details Recorded Time 03/14/2024 text/html patient is here she had some palpitations and fluttering of the heart. They were brief. She had an indigestion at that time and then she got anxious make the palpitations worse. She has not had any other issues since then. That was before the weekend. Overall she feels fine now. She had some mild chest tightness this occurred that time Anton Bush MD [address] [place] [address],[address], [place], [address], [facility] 03/16/2024 15:27:18 09/29/2024 text/html Patient is here for palpitations [...] see gastroenterology in October Anton Bush MD [address] [place] [address] Drive,[address], [place], [address], [place] [facility] 09/29/2024 11:22:08 10/19/2024 text/html A 44-year-old wh o is [...] patient denies dysphagia, Lico Hairston MD [address] [facility],[address], [place], [address], [place] [facility] 10/19/2024 09:48:25 OBGyn Episode No OBEpisode recorded.
[2024-11-12 10:50] LABS: Basophils # 0.1 K/mm3 (0-0.2); Basophils % 0.9 % (0.1-2.0); Eosinophils # 0.4 Kmm3 (0.0-0.4); Eosinophils % 5.6 % (0.1-12.0); Hematocrit 39.2 % (37.0-47.0); Hemoglobin 12.8 g/dL (12.2-16.2); Immature Granulocytes # 0.02 10^3uL; Immature Granulocytes % 0.3 %; Lymphocytes # 1.6 K/mm3 (0.7-4.5); Lymphocytes % 23.6 % (10-50); Mean Corpuscular HGB Conc 32.7 g/dL (31.8-35.4); Mean Corpuscular Hemoglobin 28.1 pg (27.0-31.2); Mean Platelet Volume 9.4 fl (7.4-10.4); Monocytes # 0.5 K/mm3 (0.1-1.0); Monocytes % 6.5 % (1.7-9.3); Neutrophils # 4.4 K/mm3 (1.8-7.8); Neutrophils % 63.1 % (37.0-80.0); Nucleated Red Blood Cells # 0 10^3/uL; Nucleated Red Blood Cells % 0 %; Platelet Count 310 K/mm3 (142-424); Red Blood Count 4.56 M/mm3 (4.20-5.40); Red Cell Distribution Width 12.5 % (11.5-17.5); Red Cell Distribution Width-SD 39.4 fL; White Blood Count 6.9 K/mm3 (4.8-10.8)
--- NOTE | 2024-11-12 10:52 | HMH.EDCP ---
Discharge Plan Disposition Patient Disposition: Home, Self-Care Condition: Good Prescriptions Prescriptions: No Action Mirena 20 mcg/24 hours (5 yrs) 52 mg intrauterine device 1 device INTRAUTERI metoprolol succinate 25 mg tablet extended release 24 hr 25 mg PO DAILY Patient Comments: TAKE 1 TABLET BY MOUTH EVERY DAY omeprazole 40 mg capsule,delayed release(DR/EC) 40 mg PO DAILY Patient Comments: TAKE ONE (1) CAPSULE EVERY DAY BY ORAL ROUTE. citalopram 20 mg tablet 20 mg PO DAILY Patient Comments: TAKE 1 TABLET BY MOUTH EVERY DAY Referrals Follow up/Referrals: Provider,Referral, MD [Primary Care Provider] - See instructions Activity Restrictions/Add. Instructions Additional Instructions/Restrictions: Your evaluation was negative for emergent causes of the chest pain you experienced. Your electrolytes and thyroid studies were also normal. Follow-up with your doctors as previously scheduled. Continue your medications as prescribed. Please return to ED if your symptoms worsen, change in location, change in severity, new symptoms develop or if you become concerned for your health. Clinical Impressions Clinical Impression: Chest pain Qualifiers: Chest pain type: unspecified Qualified Code(s): R07.9 - Chest pain, unspecified Instructions Patient Instructions: DI for Chest Pain Print Language Print Language: Nigerien Discharge ED Provider: Eileen Figueroa General Chief Complaint: Arrhythmia/Palpitations Stated Complaint: fast heart rate, cold sweats Time Seen by Provider: 11/12/24 10:36 Mode of Arrival: Ambulatory Source of Information: Patient Description of Symptoms (Recalled from ER Triage Doc. 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 Pt reports then felt like her heart began racing. Pt denies presence of CP at time of arrival. Pt denies SOA. Pt reports has been taking Metoprolol 25 mg PO daily for approx 1 month r/t palpitations History of Present Illness HPI narrative: Nicole Leyva is a 44 y/o female presenting with chest pain. Patient reports recently being started on metoprolol and omeprazole for GERD and palpitations. Patient had worn a Holter monitor which did not have any abnormal findings. Patient has been noted to have episodes of increased heart rate as noted by her Apple Watch without evidence of arrhythmia. Patient states just prior to arrival, she was walking through the house and started to have a pain that she describes as squeezing in the left side of her chest. She states that it came and went within approximately 5 seconds. Patient denies shortness of breath. She did start to feel slightly dizzy and warm and is unsure if this was related to anxiety or stress related to the chest pain. Patient states prior to starting her medications she never had chest pain episode. Patient denies hormonal control pills. Patient has an IUD in place. Patient otherwise has no complaints. Patient's chest pain has not recurred. Related Data Home Medications ?Medication ?Instructions ?Recorded ?Confirmed levonorgestrel (Mirena) 1 device intrauterine 04/18/20 12/01/23 citalopram 20 mg tablet 20 mg PO DAILY 11/12/24 11/12/24 metoprolol succinate 25 mg 25 mg PO DAILY palpitations 11/12/24 11/12/24 tablet,extended release 24 hr omeprazole 40 mg capsule,delayed 40 mg PO DAILY 11/12/24 11/12/24 release Allergies Allergy/AdvReac Type Severity Reaction Status Date / Time No Known Allergies Allergy Verified 12/01/23 10:38 [facility] Disclaimer: The information contained in this section may have been updated after the patient was seen, as this information can be updated by other users. Medical History (Updated 11/12/24 @ 13:39 by Eileen Figueroa MD) IUD contraception Social History Smoking Status: Never smoker alcohol intake: never current occupational status: employed Travel in the last 8 weeks?: None Have you lived/traveled outside US in past 30 days?: No Contact w/someone who lives/traveled outside US past 30 days?: No Exposure to someone with infectious disease in past 14 days?: No Do you have a fever (greater than 100.4 F or 38 C)?: No Have you tested positive for COVID-19?: No Exposed to someone with COVID-19 in past 14 days?: No Do you have a sore throat?: No Do you have a cough?: No Do you have any weakness?: No Do you have any diarrhea?: No Are you experiencing any unusual bleeding?: No Do you have any muscle aches/pain?: No Do you have any abdominal pain?: No Are you experiencing loss of taste or smell?: No Other Medical History Have you received the Pneumonia Vaccine: No ROS Obtained: Yes All systems reviewed & no additional complaints except as documented Physical Exam General General appearance: alert and in no apparent distress Head Head exam: atraumatic Eye Eye exam: Present EOMI; Absent scleral icterus ENT ENT exam: Present normal exam Neck Neck exam: Present full ROM Expanded Neck Exam Neck exam focused ED: Absent JVD Chest Chest inspection: Present symmetric chest wall rise Respiratory Respiratory exam: Present normal lung sounds bilaterally Cardiovascular Cardiovascular exam: Present regular rate, normal rhythm and normal heart sounds Abdominal Exam Abdominal exam: Present soft; Absent distention or tenderness Extremities Exam Extremities exam: Present full ROM; Absent edema Back Exam Back exam: Present full ROM Neurological Exam Neurological exam: Present alert and oriented X3 Psychiatric Psychiatric exam: Present normal mood Skin Skin exam: Present warm and dry HEART Score HEART Score HEART Score assessment performed?: Yes History (anamnesis): Slightly suspicious ECG: Normal Age: <45 years Risk factors: No known risk factors Troponin: </= normal limit HEART Score: 0 Critical Care Critical Care Time Critical Care Time: No Medical Decision Making Medical Records Medical records reviewed: Yes I reviewed the patient's medical records. Wai Inquiry Pt receiving controlled substance: No Vital Signs Vital Signs: 11/12/24 10:43 11/12/24 12:00 11/12/24 12:30 Temperature 99.2 F Temperature Source Oral Pulse Rate 64 67 Pulse Rate [Right Radial] 72 Respiratory Rate 16 14 17 Blood Pressure 139/75 127/79 Blood Pressure [Right Arm] 136/81 Blood Pressure Mean 93 Blood Pressure Mean [Right Arm] 99 Blood Pressure Source [Right Arm] Automatic Cuff Blood Pressure Position [Right Arm] Sitting 02 Sat by Pulse Oximetry 100 100 98 Oxygen Delivery Method Room Air Room Air Room Air 11/12/24 13:00 11/12/24 13:30 11/12/24 13:41 Temperature 99.2 F Temperature Source Pulse Rate 61 Pulse Rate [Right Radial] Respiratory Rate 17 16 17 Blood Pressure 112/68 111/70 111/70 Blood Pressure [Right Arm] Blood Pressure Mean Blood Pressure Mean [Right Arm] Blood Pressure Source [Right Arm] Blood Pressure Position [Right Arm] 02 Sat by Pulse Oximetry Oxygen Delivery Method Room Air Lab Data Lab results reviewed: Yes I reviewed the patient's lab results. Labs: Lab Results 11/12/24 10:42: WBC 6.9, RBC 4.56, Hgb 12.8, Hct 39.2, MCV 86.0, MCH 28.1, MCHC 32.7, RDW 12.5, Plt Count 310, MPV 9.4, Neut % (Auto) 63.1, Lymph % (Auto) 23.6, [place] % (Auto) 6.5, Eos % (Auto) 5.6, Baso % (Auto) 0.9, Neut # (Auto) 4.4, Lymph # (Auto) 1.6, [place] # (Auto) 0.5, Eos # (Auto) 0.4, Baso # (Auto) 0.1, Sodium 138, Potassium 3.9, Chloride 107, Carbon Dioxide 25, Anion Gap 9.9, BUN 16, Creatinine 0.80, Estimated Creat Clear 138, Estimated GFR 78, Est GFR ( Amer) 94, Glucose 100, Calcium 8.9, Total Bilirubin 0.4, AST 22, ALT 17, Alkaline Phosphatase 70, Troponin I < 0.01, Total Protein 6.9, Albumin 4.3, Globulin 2.6, Albumin/Globulin Ratio 1.7, TSH 1.89, Free T4 0.90, HCV Ab GIULIANA w/Rflx PCR Qn Negative, HIV Ag/Ab Combo Qual Negative 11/12/24 12:32: Troponin I < 0.01 11/12/24 10:42 11/12/24 10:42 Response Orders (Tests/Meds): ORDERS Category Date Time Status XR chest portable Stat Exams 11/12/24 10:36 Completed Complete Blood Count Auto Diff Stat Lab 11/12/24 10:42 Completed Comprehensive Metabolic Panel Stat Lab 11/12/24 10:42 Completed Free T4 (Free Thyroxine) Stat Lab 11/12/24 10:42 Completed HIV Combo Stat Lab 11/12/24 10:42 Completed Hepatitis C Ab Qual. W/ RFX Stat Lab 11/12/24 10:42 Completed TSH [Thyroid Stimulating Hormone] Stat Lab 11/12/24 10:42 Completed Troponin I Q3H Lab 11/12/24 12:32 Completed Troponin I Q3H Lab 11/12/24 16:45 Ordered Troponin I Stat Lab 11/12/24 10:42 Completed ECG Data Tracing #1: Attestation: I reviewed this ECG and interpreted as documented below: ECG Narrative: Sinus rhythm with a rate of 73. No QTc prolongation, no significant ST elevation/depression or evidence of STEMI. MDM Narrative Medical Decision Narrative: In summary, this is a 44-year-old female presenting with chest pain. Patient has history of palpitations and GERD on metoprolol and omeprazole. She also reports taking his medications this morning. Differential diagnosis includes but is not limited to, arrhythmia, ACS, anxiety, pneumonia, among others. Patient's chest pain came and went within seconds and has not returned. Patient is compliant with her medications for her intermittent rapid heart rate that is diagnosed as sinus tachycardia. Patient does not have significant risk factors for ACS. Based on Wells criteria, patient score is a 0 which is a low risk with 1.3% chance of a PE. Will perform cardiac evaluation with CBC, CMP, troponin, EKG, CXR with the addition of TSH/free T4. Due to low concern for ACS, patient not loaded with aspirin at this time. Patient's blood pressure is appropriate and does not require intervention at this time. Laboratory evaluation demonstrated no leukocytosis, anemia, thrombocytopenia. Patient CMP unremarkable. Initial troponin <0.01. TSH and free T4 WNL. CXR reviewed by me and negative for cardiomegaly, pleural effusion, or acute consolidation. Will repeat second troponin for thoroughness. Patient's repeat troponin negative. Patient has continued to remain symptom-free while in the emergency department. She was updated with regards to her laboratory and image findings today. Patient advised to follow-up with her specialist and primary care provider as previously arranged. She was also advised to continue her prescriptions. All questions answered and patient discharged in stable condition. Eileen Figueroa MD
--- NOTE | 2024-11-12 10:55 | PC.NURSE ---
XRAY AT BS
[2024-11-12 11:13] LABS: Albumin Level 4.3 g/dl (3.5-5.0); Chloride 107 mmol/L (98-107); Potassium 3.9 mmoL/L (3.5-5.1); Sodium 138 mmol/L (136-145)
[2024-11-12 11:16] LABS: Alanine Aminotransferase 17 U/L (12-78); Albumin/Globulin Ratio 1.7 (1.1-1.8); Alkaline Phosphatase 70 U/L (38-126); Anion Gap 9.9 mEq/L (5-15); Aspartate Amino Transferase 22 U/L (14-36); Bilirubin,Total 0.4 mg/dl (0.2-1.3); Blood Urea Nitrogen 16 mg/dl (7-17); Carbon Dioxide 25 mmol/L (22.0-30.0); Creatinine Clearance Estimated 138 mL/min (50-200); Estimated Glomerular Filt Rate 78 ml/min (>60); GFR (African American) 94 ML/MIN (>60); Globulin 2.6 g/dL (1.3-3.2); Glucose 100 mg/dl (74-100); Total Protein,Serum 6.9 g/dl (6.3-8.2)
[2024-11-12 11:17] LABS: Calcium 8.9 mg/dl (8.4-10.2)
[2024-11-12 11:34] LABS: Troponin I < 0.01 ng/ml (0.00-0.034)
[2024-11-12 11:47] LABS: Thyroid Stimulating Hormone 1.89 uIU/mL (0.465-4.68)
[2024-11-12 12:00] VITALS: BP 139/75; PULSE 64; RESP 14; O2SAT 100
--- NOTE | 2024-11-12 12:18 | PC.NURSE ---
Updated pt on POC, per ER MD pt will get a 2 hour troponin level.
[2024-11-12 12:26] LABS: HIV Combo NEGATIVE (Negative)
[2024-11-12 12:30] VITALS: BP 127/79; PULSE 67; RESP 17; O2SAT 98
[2024-11-12 12:34] LABS: Hepatitis C Ab Qual. W/ RFX NEGATIVE (Negative)
--- NOTE | 2024-11-12 12:34 | PC.NURSE ---
SECOND TROP SENT TO LAB
[2024-11-12 13:00] VITALS: BP 112/68; RESP 17
--- NOTE | 2024-11-12 13:07 | PC.NURSE ---
CALLED LAB TO CHECK ON SECOND TROP LAB STATED ANOTHER 25 MINUTES
[2024-11-12 13:27] LABS: Troponin I < 0.01 ng/ml (0.00-0.034)
[2024-11-12 13:30] VITALS: BP 111/70; RESP 16
[2024-11-12 13:41] VITALS: BP 111/70; PULSE 61; RESP 17; TEMP 37.3; O2SAT 99
== END 2024-11-12 13:45 | disposition home or self-care (01) ==
PROVIDERS: Emergency Provider Student in an Organized Health Care Education/Training Program
DX: R07.89 Other chest pain (principal); K21.9 Gastro-esophageal reflux disease without esophagitis; R00.0 Tachycardia, unspecified
CPT/HCPCS: 71045; 80053; 84439; 84443; 84484; 85025; 86803; 87389; 93005; 99284

== ENCOUNTER 2025-05-26 06:53 | Outpatient (CLI) | payer BC, SELFPAY ==
--- OUTSIDE RECORDS SUMMARY | 2025-05-26 06:56 | XMS_ITS | Clinical Summary ---
Author Organization [facility] [address] [place] [address] Phone Care Team Providers Care Bobbin Dumper Name Role Phone Ewelina Curry MD Primary Care Provider Social History Tobacco Use Types Packs/Day Years Used Date Smoking Tobacco: Never Assessed Comments Unknown Sex and Gender Information Value Date Recorded Sex Assigned at Not on file Legal Sex Female 10:05 AM EDT Gender Identity Not on file Sexual Orientation Not on file Plan of Treatment Health Maintenance Due Date Last Done Comments Annual Wellness Exam 1983 DTaP/TDaP/Td (1 - Tdap) 1999 Hepatitis B Vaccine (1 of 3 - 19+ 3-dose series) 1999 Cervical Cancer Screening 2001 Pap Smear 2001 HPV/Pap Cotest 2010 Breast Cancer Screening 11/12/2024 11/13/19 23, 05/25/2020 COVID-19 Vaccine (2024-2 6 season) 2025 05/24/2021, 08/24/2020, 07/27/2020 Influenza Vaccine (#1) 2025 , 04/22/2016 Cologuard 2025 Colon Cancer Screening 2025 Colonoscopy 2025 FIT 2025 Sigmoidoscopy 2025 Virtual Colonography 2025 Meningococcal B Vaccine Aged Out No l onger eligible based on patient's age to complete this topic Pneumococcal Vaccine 0-49 Aged Out No longer eligible based on patient's age to complete this topic Procedures Procedure Name Priority Date/Time Associated Diagnosis Comments MM MAMMO DIGITAL KAMERON SCREEN BILAT Routine 11/12/2022 2:15 PM EDT Encounter for screening mammogram for malignant neoplasm of breast from Last 3 Months or Most Recently Relevant to Health Maintenance Results * MM MAMMO DIGITAL KAMERON SCREEN BILAT (11/12/2022 2:15 PM EDT) Anatomical Region Laterality Modality Breast Bilateral Mammography 11/13/2022 7:14 AM EDT Impressions 11/13/2022 7:14 AM EDT Negative ([id number]) ~ RECOMMENDATION: Routine screening mammogram in 1 year. ~ DISCLAIMER * Any patient with a palpable abnormality, unexplained by breast imaging, should be managed on clinical basis by the attending physician. * Breast imaging has a false negative rate of 15%. * The patient was notified by mail of the results of this examination. *The patient's information was entered into a reminder system with a target due date for the next mammogram, in accordance with the [employer] and the Society of Breast Imaging recommendations. Narrative 11/13/2022 7:14 AM EDT Procedure:MM MAMMO DIGITAL KAMERON SCREEN BILAT ~ Reason for exam: screening, asymptomatic. Z12.31-Encounter for screening mammogram for malignant neoplasm of [id number] ~ MM MAMMO DIGITAL KAMERON SCREEN BILAT Bilateral CC and MLO view(s) were taken. There are scattered fibroglandular densities. Prior study comparison: Compared with prior studies the most recent being 05/25/20 No mammographic evidence of malignancy. ~ Procedure Note Kelsey Fountain MD - 11/13/2022 Procedure:MM MAMMO DIGITAL KAMERON SCREEN BILAT ~ Reason for exam: screening, asymptomatic. Z12.31-Encounter for screening mammogram for malignant neoplasm of [id number] ~ MM MAMMO DIGITAL KAMERON SCREEN BILAT Bilateral CC and MLO view(s) were taken. There are scattered fibroglandular densities. Prior study comparison: Compared with prior studies the most recentbeing 05/25/20 No mammographic evidence of malignancy. ~ IMPRESSION: Negative ([id number]) ~ RECOMMENDATION: Routine screening mammogram in 1 year. ~ DISCLAIMER * Any patient with a palpable abnormality, unexplained by breast imaging, should be managed on clinical basis by the attending physician. * Breast imaging has a false negative rate of 15%. * The patient was notified by mail of the results of this examination. *The patient's information was entered into a reminder system with atarget due date for the next mammogram, in accordance with the [employer] and the Society of Breast Imaging recommendations. us Quoc oLzano MD IMG MAMMOGRAPHY ORDERABLES Fin al Result from Last 3 Months or Most Recently Relevant to Health Maintenance Insurance [employer] POS Care Teams Bobbin Dumper Relationship Specialty Start Date End Date Ewelina Curry MD [address] [place] [address] PCP - General Family Medicine 11/24/12
--- OUTSIDE RECORDS SUMMARY | 2025-05-26 06:56 | XMS_ITS | Continuity of Care Document ---
Author Organization [facility] Address [address] [place] [address] Assessment No assessment recorded. Plan of Treatment Reminders Order Date Submit Date Provider Last Modified By Organization Details Last Modified Time Details Appointments None recorded. Lab amylase + lipase, serum 2024 SANGE[facility], [address], [address], [place], [address], 12:07:58 CBC w/ auto diff 2024 SANGEET[facility], [address], [address], [place], [address], 12:07:57 CMP, serum or plasma 2024 SANGEETHA [facility], [address], [address], [place], [address], 12:07:57 Referral None recorded. Procedures None recorded. Surgeries None recorded. Imaging CT, abdomen, w/o contrast 2024 025 [facility], [address] [place] [address], [place], [address], 13:04:19 Medication Orders None recorded. Patient TargetsNo targets recorded. Patient Instructions Encounter Date Encounter Id Patient Instructions Last Modified By Organization Details Last Modified Time 05/01/2025 [id number] learning about healthy weight efryman Not available 05/01/2025 10:55:17 body mass index: care instructions efryman Not available 05/01/2025 10:55:17 Reason for Referral None Reported. Results Created Date Observation Date Name Description Value Unit Range Abnormal Flag Note LastModifiedBy Organization Detail LastModifiedTime 05/01/2005/02/2025 CBC WITH DIFFE RENTI AL/PL ATELE T WBC 6.3 x10e3 /uL 3.4-10 .8 normal Not Available [facility] ([facility]) [address] [place], [address], 05/02/2025 12:07:57 05/01/2005/02/2025 CBC WITH DIFFE RENTI AL/PL ATELE T RBC 4.83 x10e6 /uL 3.77-5 .28 normal Not Available [facility] ([facility]) [address] [place], [address], 05/02/2025 12:07:57 05/01/2005/02/2025 CBC WITH DIFFE RENTI AL/PL ATELE T hemoglobin 13.1 g/dL 11.1-1 5.9 normal Not Available [facility] ([facility]) [address] [place], [address], 05/02/2025 12:07:57 05/01/2005/02/2025 CBC WITH DIFFE RENTI AL/PL ATELE T hematocrit 41.8 % 34.0-4 6.6 normal Not Available [facility] ([facility]) [address] [place], [address], 05/02/2025 12:07:57 05/01/2005/02/2025 CBC WITH DIFFE RENTI AL/PL ATELE T MCV 87 fL 79-97 normal Not Available [facility] ([facility]) [address] [place], [address], 05/02/2025 12:07:57 05/01/2005/02/2025 CBC WITH DIFFE RENTI AL/PL ATELE T MCH 27.1 pg 26.6-3 3.0 normal Not Available [facility] ([facility]) [address] [facility], [place], [address], 05/02/2025 12:07:57 05/01/2005/02/2025 CBC WITH DIFFE RENTI AL/PL ATELE T MCHC 31.3 g/dL 31.5-3 5.7 below low normal Not Available [facility] ([facility]) [address] [facility], [place], [address], 05/02/2025 12:07:57 05/01/2005/02/2025 CBC WITH DIFFE RENTI AL/PL ATELE T RDW 12.8 % 11.7-1 5.4 Not Available [facility] ([facility]) [address] [facility], [place], [address], 05/02/2025 12:07:57 05/01/2005/02/2025 CBC WITH DIFFE RENTI AL/PL ATELE T platelets 322 x10e3 /uL 150-45 0 normal Not Available [facility] ([facility]) [address] [facility], [place], [address], 05/02/2025 12:07:57 05/01/2005/02/2025 CBC WITH DIFFE RENTI AL/PL ATELE T neutrophils 64 % not estab. normal Not Available [facility] ([facility]) [address] [facility], [place], [address], 05/02/2025 12:07:57 05/01/2005/02/2025 CBC WITH DIFFE RENTI AL/PL ATELE T lymphs 25 % not estab. normal Not Available [facility] ([facility]) [address] [facility], [place], [address], 05/02/2025 12:07:57 05/01/20 25 05/02/2025 CBC WITH DIFFE RENTI AL/PL ATELE T monocytes 6 % not estab. normal Not Available [facility] ([facility]) [address] [place], [address], 05/02/2025 12:07:57 05/01/2005/02/2025 CBC WITH DIFFE RENTI AL/PL ATELE T eos 4 % not estab. normal Not Available [facility] ([facility]) [address] [place], [address], 05/02/2025 12:07:57 05/01/2005/02/2025 CBC WITH DIFFE RENTI AL/PL ATELE T basos 1 % not estab. normal Not Available [facility] ([facility]) [address] [place], [address], 05/02/2025 12:07:57 05/01/2005/02/2025 CBC WITH DIFFE RENTI AL/PL ATELE T immature cells UX INTERACTION DESIGNER Not Available [facility] ([facility]) [address] [place], [address], 05/02/2025 12:07:57 05/01/2005/02/2025 CBC WITH DIFFE RENTI AL/PL ATELE T neutrophils (absolute) 4.1 x10e3 /uL 1.4-7. 0 normal Not Available [facility] ([facility]) [address] [place], [address], 05/02/2025 12:07:57 05/01/2005/02/2025 CBC WITH DIFFE RENTI AL/PL ATELE T lymphs (absolute) 1.6 x10e3 /uL 0.7-3. 1 normal Not Available [facility] ([facility]) [address] [place], [address], 05/02/2025 12:07:57 05/01/20 25 05/02/2025 CBC WITH DIFFE RENTI AL/PL ATELE T monocytes(ab solute) 0.4 x10e3 /uL 0.1-0. 9 normal Not Available [facility] ([facility]) [address] [facility], [place], [address], 05/02/2025 12:07:57 05/01/2005/02/2025 CBC WITH DIFFE RENTI AL/PL ATELE T eos (absolute) 0.2 x10e3 /uL 0.0-0. 4 normal Not Available [facility] ([facility]) [address] [facility], [place], [address], 05/02/2025 12:07:57 05/01/2005/02/2025 CBC WITH DIFFE RENTI AL/PL ATELE T baso (absolute) 0.1 x10e3 /uL 0.0-0. 2 normal Not Available [facility] ([facility]) [address] [facility], [place], [address], 05/02/2025 12:07:57 05/01/2005/02/2025 CBC WITH DIFFE RENTI AL/PL ATELE T immature granulocytes 0 % not estab. Not Available [facility] ([facility]) [address] [facility], [place], [address], 05/02/2025 12:07:57 05/01/2005/02/2025 CBC WITH DIFFE RENTI AL/PL ATELE T immature grans (abs) 0.0 x10e3 /uL 0.0-0. 1 Not Available [facility] ([facility]) [address] [place], [address], 05/02/2025 12:07:57 05/01/2005/02/2025 CBC WITH DIFFE RENTI AL/PL ATELE T NRBC UX INTERACTION DESIGNER Not Available [facility] ([facility]) [address] [facility], [place], [address], 05/02/2025 12:07:57 05/01/2005/02/2025 CBC WITH DIFFE RENTI AL/PL ATELE T hematology comments: UX INTERACTION DESIGNER Not Available [facility] ([facility]) [address] [facility], [place], [address], 05/02/2025 12:07:57 05/01/2005/02/2025 COMP. METAB OLIC PANEL (14) glucose 85 mg/dL 70-99 normal Not Available [facility] ([facility]) [address] [facility] [place], [address], 05/02/2025 12:07:57 05/01/2005/02/2025 COMP. METAB OLIC PANEL (14) BUN 12 mg/dL 6-24 normal Not Available [facility] ([facility]) [address] [facility] [place], [address], 05/02/2025 12:07:57 05/01/2005/02/2025 COMP. METAB OLIC PANEL (14) creatinine 0.95 mg/dL 0.57-1 .00 normal Not Available [facility] ([facility]) [address] [facility], [place], [address], 05/02/2025 12:07:57 05/01/2005/02/2025 COMP. METAB OLIC PANEL (14) eGFR 75 mL/mi n/1.7 3 >59 normal Not Available [facility] ([facility]) [address] [facility], [place], [address], 05/02/2025 12:07:57 05/01/2005/02/2025 COMP. METAB OLIC PANEL (14) BUN/creatini ne ratio 13 9-23 normal Not Available [facility] ([facility]) [address] [facility] [place], [address], 05/02/2025 12:07:57 05/01/2005/02/2025 COMP. METAB OLIC PANEL (14) sodium 139 mmol/ L 134-14 4 normal Not Available [facility] ([facility]) [address] [facility] [place], [address], 05/02/2025 12:07:57 05/01/2005/02/2025 COMP. METAB OLIC PANEL (14) potassium 4.4 mmol/ L 3.5-5. 2 normal Not Available [facility] ([facility]) [address] [facility] [place], [address], 05/02/2025 12:07:57 05/01/2005/02/2025 COMP. METAB OLIC PANEL (14) chloride 102 mmol/ L 96-106 normal Not Available [facility] ([facility]) [address] [facility], [place], [address], 05/02/2025 12:07:57 05/01/2005/02/2025 COMP. METAB OLIC PANEL (14) carbon dioxide, total 24 mmol/ L 20-29 normal Not Available [facility] ([facility]) [address] [facility] [place], [address], 05/02/2025 12:07:57 05/01/2005/02/2025 COMP. METAB OLIC PANEL (14) calcium 9.3 mg/dL 8.7-10 .2 normal Not Available [facility] ([facility]) [address] [facility] [place], [address], 05/02/2025 12:07:57 05/01/2005/02/2025 COMP. METAB OLIC PANEL (14) protein, total 7.2 g/dL 6.0-8. 5 normal Not Available [facility] ([facility]) [address] [facility] [place], [address], 05/02/2025 12:07:57 05/01/2005/02/2025 COMP. METAB OLIC PANEL (14) albumin 4.5 g/dL 3.9-4. 9 normal Not Available [facility] ([facility]) [address] [facility] [place], [address], 05/02/2025 12:07:57 05/01/2005/02/2025 COMP. METAB OLIC PANEL (14) globulin, total 2.7 g/dL 1.5-4. 5 Not Available [facility] ([facility]) [address] [place], [address], 05/02/2025 12:07:57 05/01/20 25 05/02/2025 COMP. METAB OLIC PANEL (14) bilirubin, total 0.4 mg/dL 0.0-1. 2 normal Not Available [facility] ([facility]) [address] [place], [address], 05/02/2025 12:07:57 05/01/2005/02/2025 COMP. METAB OLIC PANEL (14) alkaline phosphatase 74 IU/L 41-116 normal Not Available [facility]) [address] [place], [address], 05/02/2025 12:07:57 05/01/2005/02/2025 COMP. METAB OLIC PANEL (14) AST (SGOT) 13 IU/L 0-40 normal Not Available [facility] ([facility]) [address] [place], [address], 05/02/2025 12:07:57 05/01/20 25 05/02/2025 COMP. METAB OLIC PANEL (14) ALT (SGPT) 19 IU/L 0-32 normal Not Available [facility] ([facility]) [address] [place], [address], 05/02/2025 12:07:57 05/01/2005/02/2025 TEE+L IPASE amylase 49 U/L 31-110 normal Not Available [facility] ([facility]) [address] [place], [address], 05/02/2025 12:07:58 05/01/20 25 05/02/2025 TEE+L IPASE lipase 31 U/L 14-72 normal Not Available [facility] ([facility]) [address], [place], [address], 05/02/2025 12:07:58 05/04/[address], abdom en, w/o contr ast No observ ation record ed. hilda [facility] [address] [facility], [place], [address], 05/12/2025 08:37:14 05/17/[address], abdom en, w/wo contr ast No observ ation record ed. cynthia [facility] [address] [facility], [place], [address], 05/18/2025 15:25:08 Result Notes None recorded. Problems Name Problem SNOMED Code Status Onset Date Resolution Date Notes Provider Name and Address Organization Details Recorded Time Anxiety 71717513 Active 2024 Leyla Fierro null, [place] - [facility] 15:02:13 Acid reflux 916958249 Active 2024 Leyla Fierro null, [place] - [facility] 15:02:23 Vaginal discharge 373103378 Active 2024 Margarita Salguero null, [place] - [facility] 5 11:04:28 Obese class II 812740116401 105 Active 2024 Margarita Salguero null, [place] - [facility] 5 11:04:49 Body mass index 40+ - severely obese 551995155 Active 2024 Margarita Salguero null, [place] - [facility] 5 11:45:04 Lesion of genitalia 424065669 Active 2024 Leyla Crowder iz, DO [address], [place], [address], [place] - [facility] 12:07:53 Problem Notes None recorded. Procedures Surgical History Date Name Laterality Status Provider Name and Address Organization Details Recorded Time 7 delivery completed Leyla Fierro [place] - [facility] 09/20/2024 15:06:17 Imaging Results None recorded. Procedure Notes None recorded. Medical Equipment None Reported. Allergies No known drug allergies Medications Name Sig Start Date Stop Date Status Note LastModified by Organization Details LastModified Time buspirone 5 mg tablet TAKE ONE (1) TABLET THREE (3) TIMES A DAY BY ORAL ROUTE NEEDED. 01/09 completed Not Available Not Available Not Available meloxicam 15 mg tablet TAKE 1 TABLET BY MOUTH EVERY DAY 01/09 completed Not Available Not Available Not Available naltrexon e 50 mg tablet TAKE ONE (1) TABLET DAILY. PLEASE DO NOT FILL IF NOT PICKED UP WITHIN 30 DAYS. 09/20 completed Not Available Not Available Not Available spironola ctone 100 mg tablet TAKE ONE TABLET BY MOUTH EVERY DAY 09/20 completed Not Available Not Available Not Available omeprazol e 40 mg capsule,d elayed release TAKE ONE (1) CAPSULE EVERY DAY BY ORAL ROUTE. active Not Available Not Available No t Available ondansetr on 8 mg disintegr ating tablet PLACE ONE (1) TABLET(S ) BY TRANSLIN GUAL ROUTE , EVERY 8 HOURS , FOR 10 DAYS , NEEDED FOR NAUSEA 09/20 completed Not Available Not Available Not Available citalopra m 20 mg tablet TAKE 1 TABLET BY MOUTH EVERY DAY active Not Available Not Available No t Available famotidin e 20 mg tablet TAKE ONE (1) TABLET TWICE A DAY BY ORAL ROUTE. 01/09 completed Not Available Not Available Not Available metoprolo l succinate ER 25 mg tablet,ex tended release 24 hr TAKE 1 TABLET BY MOUTH EVERY DAY active Not Available Not Available No t Available intrauter ine device (IUD) Take by intraute rine route. active inserted around 2022 Not Available Not Available Not Available bupropion HCl XL 300 mg 24 hr tablet, extended release TAKE ONE (1) TABLETS DAILY. PLEASE DO NOT FILL IF NOT PICKED UP WITHIN 30 DAYS. 09/20 completed Not Available Not Available Not Available bupropion HCl XL 150 mg 24 hr tablet, extended release TAKE ONE (1) TABLETS DAILY. PLEASE DO NOT FILL IF NOT PICKED UP WITHIN 30 DAYS. 09/20 completed Not Available Not Available Not Available Vitals Date Recorded Body height Body mass index (BMI) Body weight Body temperature Heart rate Oxygen saturation Respiratory rate Pain severity - 0-10 verbal numeric rating [Score] - Reported Systolic And Diastolic Provider Name and Address Organization Details Last Updated DateTime 157.48 cm 43.7 kg/m2 615104. 58 g 97.5 [degF] 67 /min 98 % 18 /min 1 117/78 mm[Hg] Barbara Genaro [place] - [facility] 10:35:18 Social History Question Answer Notes LastModified by Organizat ion Details LastModified Time Tobacco Smoking Status Former Smoker Quit 2002 Leyla Sri garcia, [place] - [facility] 09/20/2024 15:05:34 Do You Have An Advance Directive? No [email or web address] Information not available 01/09/2025 Are You Blind Or Do You Have Difficulty Seeing? No [email or web address] Information not available 01/09/2025 Is Blood Transfusion Acceptable In An Emergency? Yes [email or web address] Information not available 01/09/2025 What Is Your Level Of Caffeine Consumption? Occasional [email or web address] Information not available 01/09/2025 In The 14 Days Before Symptom Onset, Have You Had Close Contact With A Laboratory-confi rmed COVID-19 While That Case Was Ill? No [email or web address] Information not available 01/09/2025 In The 14 Days Before Symptom Onset, Have You Had Close Contact With A Person Who Is Under Investigation For COVID-19 While That Person Was Ill? No [email or web address] Information not available 01/09/2025 Have You Been To An Area Known To Be High Risk For COVID-19? No [email or web address] Information not available 01/09/2025 Are You Deaf Or Do You Have Serious Difficulty Hearing? No Information not available 01/09/2025 What Type Of Diet Are You Following? REGULAR [email or web address] Information not available 01/09/2025 Have You Processed Blood Or Body Fluids From An Ebola Virus Disease Patient Without Appropriate PPE? No [email or web address] Information not available 01/09/2025 Do You Reside In Or Have You Traveled To An Area Where Ebola Virus Transmission Is Active? No [email or web address] Information not available 01/09/2025 Have There Been Any Changes To Your Family Or Social Situation? No [email or web address] Information not available 01/09/2025 What Is The Fluoride Status Of Your Home? Fluoridated [email or web address] Information not available 01/09/2025 When Did You Quit Smoking? 16+yearssinlorri treviño [email or web address] Information not available 01/09/2025 Have You Recently Or Are You Planning To Travel To An Area With Zika Virus? No [email or web address] Information not available 01/09/2025 Do You Have A Medical Power Of Still Operator Gin? No Information not available 01/09/2025 What Was The Date Of Your Most Recent Tobacco Screening? 01/09/2025 [email or web address] Information not available 01/09/2025 What Is Your Current Pack Years? 10packyears [email or web address] Information not available 01/09/2025 Do You Use Protection During Sex? No [email or web address] Information not available 01/09/2025 Do You Use Protection Against STDs? No [email or web address] Information not available 01/09/2025 What Is Your Relationship Status? [email or web address] Information not available 01/09/2025 Are You Sexually Active? Yes [email or web address] Information not available 01/09/2025 Do You Have Smoke And Carbon Monoxide Detectors In Your Home? Yes [email or web address] Information not available 01/09/2025 Are You Passively Exposed To Smoke? No [email or web address] Information not available 01/09/2025 How Much Tobacco Do You Smoke? No Information not available 01/09/2025 Has Tobacco Cessation Counseling Been Provided? No Information not available 01/09/2025 How Many Years Have You Smoked Tobacco? 5 [email or web address] Information not available 09/20/2024 Do You Have Difficulty Walking Or Climbing Stairs? No [email or web address] Information not available 01/09/2025 What Contraceptive Method Was Reported At Start Of This Visit? IUD With Progestin [email or web address] Information not available 01/09/2025 What Contraceptive Method Was Reported At End Of This Visit? IUD With Progestin [email or web address] Information not available 01/09/2025 Do You Want To Talk About Contraception Or Prevention During Your Visit Today? No - I Do Not Want To Talk About Contraception Today Because I Am Here For Something Else [email or web address] Information not available 01/09/2025 Do You Have Any Future Plans To Get ? No, I Don't Want To Become [email or web address] Information not available 01/09/2025 Sex: Female Functional Status Question Answer Note LastModified by Organizat [employer] Details LastModified Time Do you use any illicit or recreational drugs? No [email or web address] Information not available 09/20/2024 Do you or have you ever used any other forms of tobacco or nicotine? No Information not available 09/20/2024 What is your level of alcohol consumption? None [email or web address] Information not available 01/09/2025 Do you have transportation difficulties? No [email or web address] Information not available 01/09/2025 What is your status? Not Information no t available 01/09/2025 Are you able to walk independently without assistance or assistive devices? YESWOREST [email or web address] Information not available 01/09/2025 Do you have difficulty doing errands alone? No [email or web address] Information not available 01/09/2025 Are you able to care for yourself independently? Yes Information not available 01/09/2025 Do you have difficulty dressing, bathing, grooming, or toileting? No [email or web address] Information not available 01/09/2025 What is your exercise level? Occasional [email or web address] Information not available 01/09/2025 Mental Status Question Answer Note LastModified by Organizat [employer] Details LastModified Time Do you feel stressed (tense, restless, nervous, or anxious, or unable to sleep at night)? [id number] [email or web address] Information not available 01/09/2025 Do you have difficulty concentrating, remembering or making decisions? No [email or web address] Information no t available 01/09/2025 Family History Relationship Description Onset Age of this Age Resolved Age Notes LastModified by Organization Details LastModified Time Father No current problems or disability [email or web address] Not available 15:04:46 Mother No current problems or disability [email or web address] Not available 15:04:46 Medical History No medical history recorded. Gynecological History Statement/Question Response Last Annual Exam/Provider Abnormal Pap N Date of Last Mammogram Sexually Active? Y Menses Monthly N STIs/STDs N Colposcopy Date of Last Pap Smear Sexual Problems? N Current Control Method IUD LMP Unknown Obstetrics History GPAL:G 3 P 1 1 1 3 Type Value Full Term 1 Spontaneous 1 Premature 1 Living 3 Total 3 Immunizations Vaccine Type Date Status Note Provider Nam e and Address Organization Details Recorded Time Influenza, split virus, trivalent, PF 6 completed Not Available [facility] 05/01/2025 10:18:08 COVID-19, mRNA, LNP-S, PF, 100 mcg/0.5mL dose or 50 mcg/0.25mL dose 1 completed Not Available [facility] 05/01/2025 10:18:08 COVID-19, mRNA, LNP-S, PF, 100 mcg/0.5mL dose or 50 mcg/0.25mL dose 1 completed Not Available [facility] 05/01/2025 10:18:08 COVID-19, mRNA, LNP-S, PF, 100 mcg/0.5mL dose or 50 mcg/0.25mL dose 1 completed Not Available [facility] 05/01/2025 10:18:08 Influenza, split virus, quadrivalent, PF 1 completed Not Available [facility] 05/01/2025 10:18:08 Influenza, MDCK, quadrivalent, PF 3 completed Not Available [facility] 05/01/2025 10:18:08 Influenza, split virus, trivalent, preservative 4 completed Anaya Arreaga null, [place] - [facility] 03/17/2024 14:07:15 Influenza, split virus, trivalent, PF 5 completed Radha Iglesias null, [place] - [facility] 05/01/2025 13:08:40 Past Encounters Encounter ID Performer Location Encounter Start Date Encounter Closed Date Diagnosis/Indication Diagnosis SNOMED-CT Code Diagnosis ICD10 Code Diagnosis IMO Codes Diagnosis Note [id number] Franc Elizabeth APRN [address] [address] 05/01/2025 10:15:13 05/01/2025 11:19:15 Influenza vaccine needed 5787271891 106 Z23 Body mass index 40+ - severely obese 736815950 E66.813 Z68.41 9653096 43.7 Upper abdominal pain 831 34152 R10.10 [id number] Health Concerns Section Related Observation LastModified by Organization Detai ls LastModified Time None Recorded Concern Status LastModified by Organization Details LastModified Time None Recorded Payers Encounter Date Sequence Insurance Name Policy Number Policy Graham Covered Member ID Graham Member ID Guarantor Name 05/01/2025 1 [employer] [id number] Liborio Leyva [id number] Nicole Leyva Notes Date Note Type Note Provider Name and Address Organization Details Recorded Time 05/01/2025 text/html ROS as noted in the HPI 45 yr old female presents for possible gallbladder issues or hernia. She has had symptoms off and on for a year. Intermittent bilateral pain under breast and burning in stomach. Pain also goes to back, between shoulder blades, and left shoulder. Pain worse after eating fatty or spicy food Franc Elizabeth, [employer] [address], [place], [address], [place] - [facility] 05/01/2025 10:58:09 OBGyn Episode No OBEpisode recorded.
--- OUTSIDE RECORDS SUMMARY | 2025-05-26 06:56 | XMS_ITS | Data Portability ---
Author Organization [facility] Address [address] [place] [address] Assessment Encounter Date Assessment Date Assessment LastModified by Organization Details LastModified Time 09/20/2024 09/20/2024 44 yo here for multiple issues Not available 09/23/2024 07:57:33 10/05/2024 10/05/2024 44 yo here for US for bloating Not available 10/23/2024 15:11:56 Plan of Treatment Reminders Order Date Submit Date Provider Last Modified By Organization Details Last Modified Time Details Appointments None record ed. Lab amylas e + lipase , serum 2024 025 [facility], [address], [address], [place], [address], 12:07:58 CBC w/ auto diff 2024 025 SANGEETHA [facility], [address], [place] [address], [place], [address], 12:07:57 CMP, serum or plasma 2024 025 SANGEETHA [facility], [address], [place] [address], [place], [address], 12:07:57 cultur e, urine 2024 025 SANGEETHA [facility], [address], [place], [place], [address], 07/09/202 5 03:08:10 urinal ysis, dipsti ck 2024 025 [email or web address] [facility], [address] [place] [address] , [place], [address], 5 12:06:09 STI panel 2024 025 SANGEETHA [facility], [address], [place] [address], [place], [address], 5 15:11:00 CBC w/ auto diff 2024 025 SANGEETHA [facility], [address], [place], [place], [address], 5 08:23:48 CMP, serum or plasma 2024 025 SANGEETHA [facility], [address], [place], [place], [address], 5 08:23:49 amylas e + lipase , serum 2024 025 SANGEETHA [facility], [address], [place], [place], [address], 5 08:23:50 HCG, intact + beta subuni t, quant, serum or plasma 2024 025 SANGEETHA [facility], [address], [place], [place], [address], 5 08:23:51 hormon e panel, serum or plasma 2024 025 SANGEETHA [facility], [address], [place], [place], [address], 5 08:23:46 TSH + free T4, serum 2024 025 SANGEETHA [facility], [address], [place], [place], [address], 5 08:23:47 Referral gastro entero logist referr al 2024 025 SANGEETHA Hairston MD, [address] [place] [address] Dr, [place] [address], [place], [address], 5 08:05:10 primar y care provid er referr al 2024 025 [email or web address] Yamileth Wheat APRN, [address] [place] [address] , [place], [address], 5 14:33:18 Procedures None record ed. Surgeries None record ed. Imaging CT, abdome n, w/o contra st 2024 025 [facility], [address] [place] [address], [address], 5 13:04:19 US, transv aginal 2024 025 [facility], [address] [place] [address] ., [place], [address], 5 15:17:14 Medication Orders Pepcid 20 mg tablet 2024 025 [facility], [address] [place] [address], [address], 5 17:30:58 buspir one 5 mg tablet 2024 025 [facility], [address] [place] [address], [address], 5 17:30:55 Patient TargetsNo targets recorded. Patient Instructions Encounter Date Encounter Id Patient Instructions Last Modified By Organizati on Details Last Modified Time 09/20/2024 [id number] Indigestion (Dyspepsia): Care Instructions [email or web address] Not available 09/20/2024 15:27:09 Nicole is a 44 y o here with several issues Anxiety -pt has been to ER for this issue -following with Eleazar for tachycardia and on metoprolol 25mg PO daily -plan to start buspar -pt wonders if hormones could be contributing. Has IUD in place so amenorrheic. Will check labs as above Bloating/unintentiona l weight loss/early satiety/GERD -GI referral in place -labs as above -plan RUQ US and pelvic US given symptoms -start pepcid Plan workup as above, referral to GI and PCP [email or web address] Not available 09/23/2024 09:50:24 10/05/2024 [id number] US today is over all WNL. She plans to get RUQ US. She does note that pepcid has been helping with her indigestion and the bloating symptoms have been improving. Encouraged f/u with fiber optic splicer [email or web address] Not available 10/23/2024 15:12:59 01/09/2025 [id number] learning about healthy weight [email or web address] Not available 01/09/2025 12:06:09 body mass index: care instructions [email or web address] Not available 01/09/2025 12:06:09 medical record request* - please fax records from Dr. Quoc Kate from [facility] (iud insertion, imaging, annual strap maker, labs, etc.) [email or web address] Not available 01/17/2025 10:17:54 medical record request* - please fax most recent mammogram results [email or web address] Not available 01/10/2025 17:09:47 05/01/2025 [id number] learning about healthy weight [email or web address] Not available 05/01/2025 10:55:17 body mass index: care instructions [email or web address] Not available 05/01/2025 10:55:17 Reason for Referral Morning Nanny Referral for Abdominal bloating Referring Physician: Pamela Wilson, MANAGER ARCHITECTURAL, Encounter Date: 09/20/2024 Primary Care Provider Referr al for Anxiety Referring Physician: Pamela Wilson MANAGER ARCHITECTURAL, Encounter Date: 09/20/2024 Results Created Date Observation Date Name Description Value Unit Range Abnormal Flag Note LastModifiedBy Organization Detail LastModifiedTime 09/21/19 25 09/21/2024 FSH+L H+E2 LH 9.9 mIU/m L normal Adult Femal e Range Folli cular phase 2.4 - 12.6 Ovula tion phase 14.0 - 95.6 Lutea l phase 1.0 - 11.4 Postm enopa usal 7.7 - 58.5 Not Available [facility] ([facility]) [address] [place], [address], 09/21/2024 08:23:46 09/21/19 25 09/21/2024 FSH+L H+E2 FSH 9.9 mIU/m L Adult Femal e Range Folli cular phase 3.5 - 12.5 Ovula tion phase 4.7 - 21.5 Lutea l phase 1.7 - 7.7 Postm enopa usal 25.8 - 134.8 Not Available [facility] ([facility]) [address] [place], [address], 09/21/2024 08:23:46 09/21/19 25 09/21/2024 FSH+L H+E2 estradiol 27.2 pg/mL normal Adult Femal e Range Folli cular phase 12.5 - 166.0 Ovula tion phase 85.8 - 498.0 Lutea l phase 43.8 - 211.0 Postm enopa usal <6.0 - 54.7 Pregn dmitri 1st trime ster 215.0 - >4300 .0 Zofia ECLIA metho dolog y Not Available [facility] ([facility]) [address] [place], [address], 09/21/2024 08:23:46 09/21/1909/21/2024 TSH+F REE T4 TSH 1.050 uIU/m L 0.450- 4.500 normal Not Available [facility] ([facility]) [address] [place], [address], 09/21/2024 08:23:47 09/21/19 25 09/21/2024 TSH+F REE T4 T4,free(dire ct) 1.30 NG/dL 0.82-1 .77 normal Not Available [facility] ([facility]) [address] [place], [address], 09/21/2024 08:23:47 09/21/19 25 09/21/2024 CBC WITH DIFFE RENTI AL/PL ATELE T WBC 6.8 x10e3 /uL 3.4-10 .8 normal Not Available [facility] ([facility]) [address] [place], [address], 09/21/2024 08:23:48 09/21/19 25 09/21/2024 CBC WITH DIFFE RENTI AL/PL ATELE T RBC 4.92 x10e6 /uL 3.77-5 .28 normal Not Available [facility] ([facility]) [address] [place], [address], 09/21/2024 08:23:48 09/21/19 25 09/21/2024 CBC WITH DIFFE RENTI AL/PL ATELE T hemoglobin 13.9 g/dL 11.1-1 5.9 normal Not Available [facility] ([facility]) [address] [place], [address], 09/21/2024 08:23:48 09/21/19 25 09/21/2024 CBC WITH DIFFE RENTI AL/PL ATELE T hematocrit 41.8 % 34.0-4 6.6 normal Not Available [facility] ([facility]) [address] [place], [address], 09/21/2024 08:23:48 09/21/19 25 09/21/2024 CBC WITH DIFFE RENTI AL/PL ATELE T MCV 85 fL 79-97 normal Not Available [facility] ([facility]) [address] [place], [address], 09/21/2024 08:23:48 09/21/19 25 09/21/2024 CBC WITH DIFFE RENTI AL/PL ATELE T MCH 28.3 pg 26.6-3 3.0 normal Not Available [facility] ([facility]) [address] [place], [address], 09/21/2024 08:23:48 09/21/19 25 09/21/2024 CBC WITH DIFFE RENTI AL/PL ATELE T MCHC 33.3 g/dL 31.5-3 5.7 normal Not Available [facility] ([facility]) [address] [facility], [place], [address], 09/21/2024 08:23:48 09/21/19 25 09/21/2024 CBC WITH DIFFE RENTI AL/PL ATELE T RDW 12.3 % 11.7-1 5.4 Not Available [facility] ([facility]) [address] [facility] [place], [place], [address], 09/21/2024 08:23:48 09/21/19 25 09/21/2024 CBC WITH DIFFE RENTI AL/PL ATELE T platelets 375 x10e3 /uL 150-45 0 normal Not Available [facility] ([facility]) [address] [place], [address], 09/21/2024 08:23:48 09/21/19 25 09/21/2024 CBC WITH DIFFE RENTI AL/PL ATELE T neutrophils 61 % not estab. normal Not Available [facility] ([facility]) [address] [place], [address], 09/21/2024 08:23:48 09/21/19 25 09/21/2024 CBC WITH DIFFE RENTI AL/PL ATELE T lymphs 28 % not estab. normal Not Available [facility] ([facility]) [address] [place], [address], 09/21/2024 08:23:48 09/21/19 25 09/21/2024 CBC WITH DIFFE RENTI AL/PL ATELE T monocytes 7 % not estab. normal Not Available [facility] ([facility]) [address] [facility], [place], [address], 09/21/2024 08:23:48 09/21/19 25 09/21/2024 CBC WITH DIFFE RENTI AL/PL ATELE T eos 3 % not estab. normal Not Available [facility] ([facility]) [address] [facility] [place], [place], [address], 09/21/2024 08:23:48 09/21/19 25 09/21/2024 CBC WITH DIFFE RENTI AL/PL ATELE T basos 1 % not estab. normal Not Available [facility] ([facility]) [address] [facility], [place], [address], 09/21/2024 08:23:48 09/21/19 25 09/21/2024 CBC WITH DIFFE RENTI AL/PL ATELE T immature cells PLANT SECURITY GUARD Not Available [facility] ([facility]) [address] [place], [address], 09/21/2024 08:23:48 09/21/19 25 09/21/2024 CBC WITH DIFFE RENTI AL/PL ATELE T neutrophils (absolute) 4.2 x10e3 /uL 1.4-7. 0 normal Not Available [facility] ([facility]) [address] [place], [address], 09/21/2024 08:23:48 09/21/19 25 09/21/2024 CBC WITH DIFFE RENTI AL/PL ATELE T lymphs (absolute) 1.9 x10e3 /uL 0.7-3. 1 normal Not Available [facility] ([facility]) [address] [place], [address], 09/21/2024 08:23:48 09/21/19 25 09/21/2024 CBC WITH DIFFE RENTI AL/PL ATELE T monocytes(ab solute) 0.4 x10e3 /uL 0.1-0. 9 normal Not Available [facility] ([facility]) [address] [facility], [place], [address], 09/21/2024 08:23:48 09/21/19 25 09/21/2024 CBC WITH DIFFE RENTI AL/PL ATELE T eos (absolute) 0.2 x10e3 /uL 0.0-0. 4 normal Not Available [facility] ([facility]) [address] [facility] [place], [place], [address], 09/21/2024 08:23:48 09/21/19 25 09/21/2024 CBC WITH DIFFE RENTI AL/PL ATELE T baso (absolute) 0.1 x10e3 /uL 0.0-0. 2 normal Not Available [facility] ([facility]) [address] [facility] [place], [place], [address], 09/21/2024 08:23:48 09/21/19 25 09/21/2024 CBC WITH DIFFE RENTI AL/PL ATELE T immature granulocytes 0 % not estab. Not Available [facility] ([facility]) [address] [facility] [place] [facility], [place], [address], 09/21/2024 08:23:48 09/21/19 25 09/21/2024 CBC WITH DIFFE RENTI AL/PL ATELE T immature grans (abs) 0.0 x10e3 /uL 0.0-0. 1 Not Available [facility] ([facility]) [address] [place], [address], 09/21/2024 08:23:48 09/21/19 25 09/21/2024 CBC WITH DIFFE RENTI AL/PL ATELE T NRBC PLANT SECURITY GUARD Not Available [facility] ([facility]) [address] [facility] [place], [place], [address], 09/21/2024 08:23:48 09/21/19 25 09/21/2024 CBC WITH DIFFE RENTI AL/PL ATELE T hematology comments: PLANT SECURITY GUARD Not Available [facility] ([facility]) [address] [facility] [place], [address], 09/21/2024 08:23:48 09/21/19 25 09/21/2024 COMP. METAB OLIC PANEL (14) glucose 85 mg/dL 70-99 normal Not Available [facility] ([facility]) [address] [facility] [place], [address], 09/21/2024 08:23:49 09/21/19 25 09/21/2024 COMP. METAB OLIC PANEL (14) BUN 13 mg/dL 6-24 normal Not Available [facility] ([facility]) [address] [facility] [place], [address], 09/21/2024 08:23:49 09/21/19 25 09/21/2024 COMP. METAB OLIC PANEL (14) creatinine 0.90 mg/dL 0.57-1 .00 normal Not Available [facility] ([facility]) [address] [facility] [place], [address], 09/21/2024 08:23:49 09/21/19 25 09/21/2024 COMP. METAB OLIC PANEL (14) eGFR 81 mL/mi n/1.7 3 >59 normal Not Available [facility] ([facility]) [address] [facility] [place], [address], 09/21/2024 08:23:49 09/21/19 25 09/21/2024 COMP. METAB OLIC PANEL (14) BUN/creatini ne ratio 14 9-23 normal Not Available [facility] ([facility]) [address] [facility] [place], [address], 09/21/2024 08:23:49 09/21/19 25 09/21/2024 COMP. METAB OLIC PANEL (14) sodium 139 mmol/ L 134-14 4 normal Not Available [facility] ([facility]) [address] [facility] [place], [address], 09/21/2024 08:23:49 09/21/19 25 09/21/2024 COMP. METAB OLIC PANEL (14) potassium 4.3 mmol/ L 3.5-5. 2 normal Not Available [facility] ([facility]) [address] [facility] [place], [address], 09/21/2024 08:23:49 09/21/19 25 09/21/2024 COMP. METAB OLIC PANEL (14) chloride 101 mmol/ L 96-106 normal Not Available [facility] ([facility]) [address] [facility] [place], [address], 09/21/2024 08:23:49 09/21/19 25 09/21/2024 COMP. METAB OLIC PANEL (14) carbon dioxide, total 20 mmol/ L 20-29 normal Not Available [facility] ([facility]) [address] [facility] [place], [address], 09/21/2024 08:23:49 09/21/19 25 09/21/2024 COMP. METAB OLIC PANEL (14) calcium 9.4 mg/dL 8.7-10 .2 normal Not Available [facility] ([facility]) [address] [place], [address], 09/21/2024 08:23:49 09/21/19 25 09/21/2024 COMP. METAB OLIC PANEL (14) protein, total 7.5 g/dL 6.0-8. 5 normal Not Available [facility] ([facility]) [address] [facility] [place], [address], 09/21/2024 08:23:49 09/21/19 25 09/21/2024 COMP. METAB OLIC PANEL (14) albumin 4.8 g/dL 3.9-4. 9 normal Not Available [facility] ([facility]) [address] [place], [address], 09/21/2024 08:23:49 09/21/19 25 09/21/2024 COMP. METAB OLIC PANEL (14) globulin, total 2.7 g/dL 1.5-4. 5 Not Available [facility] ([facility]) [address] [facility] [place], [address], 09/21/2024 08:23:49 09/21/19 25 09/21/2024 COMP. METAB OLIC PANEL (14) bilirubin, total 0.4 mg/dL 0.0-1. 2 normal Not Available [facility] ([facility]) [address] [facility] [place], [address], 09/21/2024 08:23:49 09/21/19 25 09/21/2024 COMP. METAB OLIC PANEL (14) alkaline phosphatase 78 IU/L 44-121 normal Not Available [facility]) [address] [place], [address], 09/21/2024 08:23:49 09/21/19 25 09/21/2024 COMP. METAB OLIC PANEL (14) AST (SGOT) 13 IU/L 0-40 normal Not Available [facility] ([facility]) [address] [place], [address], 09/21/2024 08:23:49 09/21/19 25 09/21/2024 COMP. METAB OLIC PANEL (14) ALT (SGPT) 14 IU/L 0-32 normal Not Available [facility] ([facility]) [address] [place], [address], 09/21/2024 08:23:49 09/21/19 25 09/21/2024 TEE+L IPASE amylase 62 U/L 31-110 normal Not Available [facility] ([facility]) [address] [place], [address], 09/21/2024 08:23:50 09/21/19 25 09/21/2024 TEE+L IPASE lipase 40 U/L 14-72 normal Not Available [facility] ([facility]) [address] [facility], [place], [address], 09/21/2024 08:23:50 09/21/19 25 09/21/2024 HCG,B ETA SUBUN IT, QNT HCG,beta subunit,qnt, serum <1 mIU/m L Femal e (Non- pregn ant) 0 - 5 (Post menop ausal ) 0 - 8 Femal e (Preg nant) Weeks of Gesta tion 3 6 - 71 4 10 - 750 5 217 - 2853 6 185 - 63148 7 3582 -9887 63 8 29154 -3325 71 9 69542 -4814 10 10 44956 -7621 77 12 67638 -3616 12 14 94983 - 27477 15 91234 - 80251 16 5470 - 73891 17 2757 - 21666 18 2426 - 29754 Zofia ECLIA metho dolog y Not Available [facility] ([facility]) [address] [facility] [place], [place], [address], 09/21/2024 08:23:51 01/10/20 25 01/11/2025 URINE CULTU RE, ROUTI NE urine culture, routine Final report Not Available [facility] ([facility]) [address] [place], [address], 01/11/2025 03:08:10 01/10/20 25 01/11/2025 URINE CULTU RE, ROUTI NE result 1 COMMEN T Cultu re shows less than 10,00 0 colon y formi ng units of bacte shagufta per adonay liter of urine . This colon y count is not gener ally consi dered to be clini odilia signi fican t. Not Available [facility] ([facility]) [address] [place], [address], 01/11/2025 03:08:10 01/10/20 25 01/12/2025 NUSWA B BV+CA ND6+H SV+MY COPL+ TV atopobium vaginae Low - 0 score Not Available [facility] ([facility]) [address] [facility], [place], [address], 01/13/2025 15:11:00 01/10/20 25 01/12/2025 NUSWA B BV+CA ND6+H SV+MY COPL+ TV bvab 2 Low - 0 score Not Available [facility] ([facility]) [address] [facility], [place], [address], 01/13/2025 15:11:00 01/10/20 25 01/12/2025 NUA B BV+CA ND6+H SV+MY COPL+ TV megasphaera 1 Low - 0 score Calcu late total score by meg valero the 3 indiv idual bacte rial vagin osis (BV) marke r score s toget her. Total score is inter prete d as follo ws: Total score 0-1: Indic ates the absen ce of BV. Total score 2: Indet ermin ate for BV. Addit ional clini yudy data shoul d be evalu ated to estab oracio a diagn osis. Total score 3-6: Indic ates the prese nce of BV. Not Available [facility] ([facility]) [address] [facility], [place], [address], 01/13/2025 15:11:00 01/10/20 25 01/12/2025 NUA B BV+CA ND6+H SV+MY COPL+ TV xenia albicans, ANTONIO Negati ve negati ve Not Available [facility] ([facility]) [address] [facility], [place], [address], 01/13/2025 15:11:00 01/10/20 25 01/12/2025 NUSWA B BV+CA ND6+H SV+MY COPL+ TV xenia glabrata, ANTONIO Negati ve negati ve Not Available [facility] ([facility]) [address] [facility], [place], [address], 01/13/2025 15:11:00 01/10/20 25 01/12/2025 NUA B BV+CA ND6+H SV+MY COPL+ TV hsv 1 ANTONIO Negati ve negati ve Not Available [facility] ([facility]) [address] [facility], [place], [address], 01/13/2025 15:11:00 01/10/20 25 01/12/2025 NUA B BV+CA ND6+H SV+MY COPL+ TV hsv 2 ANTONIO Negati ve negati ve Not Available [facility] ([facility]) [address] [place], [address], 01/13/2025 15:11:00 01/10/20 25 01/12/2025 NUA B BV+CA ND6+H SV+MY COPL+ TV mycoplasma genitalium ANTONIO Negati ve negati ve Not Available [facility] ([facility]) [address] [facility], [place], [address], 01/13/2025 15:11:00 01/10/20 25 01/12/2025 NUA B BV+CA ND6+H SV+MY COPL+ TV mycoplasma hominis ANTONIO Negati ve negati ve Not Available [facility] ([facility]) [address] [facility], [place], [address], 01/13/2025 15:11:00 01/10/20 25 01/12/2025 NUA B BV+CA ND6+H SV+MY COPL+ TV ureaplasma spp ANTONIO Negati ve negati ve Not Available [facility] ([facility]) [address] [place], [address], 01/13/2025 15:11:00 01/10/20 25 01/13/2025 NUA B BV+CA ND6+H SV+MY COPL+ TV C parapsilosis /tropicalis Negati ve negati ve This assay does not diffe renti ate C. tropi calis and C. parap wisam is. Not Available [facility] ([facility]) [address] [facility], [place], [address], 01/13/2025 15:11:00 01/10/20 25 01/13/2025 NUSWA B BV+CA ND6+H SV+MY COPL+ TV xenai lusitaniae, ANTONIO Negati ve negati ve Not Available [facility] ([facility]) [address] [facility], [place], [address], 01/13/2025 15:11:00 01/10/20 25 01/13/2025 NUSWA B BV+CA ND6+H SV+MY COPL+ TV xenia krusei, ANTONIO Negati ve negati ve Not Available [facility] ([facility]) [address] [facility], [place], [address], 01/13/2025 15:11:00 01/10/20 25 01/13/2025 NUSWA B BV+CA ND6+H SV+MY COPL+ TV trich vag by ANTONIO Negati ve negati ve Not Available [facility] ([facility]) [address] [facility], [place], [address], 01/13/2025 15:11:00 01/10/20 25 01/09/2025 urina lysis , dipst ick Leukocytes Trace Not Available [facility] [address] [place] [address] , [place], [address], 01/09/2025 11:36:53 01/10/20 25 01/09/2025 urina lysis , dipst ick Nitrite negati ve Not Available [facility] [address] [place] [address] , [place], [address], 01/09/2025 11:36:53 01/10/20 25 01/09/2025 urina lysis , dipst ick Protein Negati ve Not Available [facility] [address] [place] [address] , [place], [address], 01/09/2025 11:36:53 01/10/20 25 01/09/2025 urina lysis , dipst ick Blood Negati ve Not Available [facility] [address] [place] [address] , [place], [address], 01/09/2025 11:36:53 01/10/20 25 01/09/2025 urina lysis , dipst ick Ketone Negati ve Not Available [facility] [address] [place] [address] , [place], [address], 01/09/2025 11:36:53 01/10/20 25 01/09/2025 urina lysis , dipst ick Bilirubin Negati ve Not Available [facility] [address] [place] [address] , [place], [address], 01/09/2025 11:36:53 01/10/20 25 01/09/2025 urina lysis , dipst ick Glucose Negati ve Not Available [facility] [address] [place] [address] , [place], [address], 01/09/2025 11:36:53 05/01/20 25 05/02/2025 CBC WITH DIFFE RENTI AL/PL ATELE T WBC 6.3 x10e3 /uL 3.4-10 .8 normal Not Available [facility] ([facility]) [address] [place], [address], 05/02/2025 12:07:57 05/01/2005/02/2025 CBC WITH DIFFE RENTI AL/PL ATELE T RBC 4.83 x10e6 /uL 3.77-5 .28 normal Not Available [facility] ([facility]) [address] [place], [address], 05/02/2025 12:07:57 05/01/20 05/02/2025 CBC WITH DIFFE RENTI AL/PL ATELE T hemoglobin 13.1 g/dL 11.1-1 5.9 normal Not Available [facility] ([facility]) [address] [place], [address], 05/02/2025 12:07:57 05/01/2005/02/2025 CBC WITH DIFFE RENTI AL/PL ATELE T hematocrit 41.8 % 34.0-4 6.6 normal Not Available [facility] ([facility]) [address] [facility], [place], [address], 05/02/2025 12:07:57 05/01/2005/02/2025 CBC WITH DIFFE RENTI AL/PL ATELE T MCV 87 fL 79-97 normal Not Available [facility] ([facility]) [address] [place], [address], 05/02/2025 12:07:57 05/01/2005/02/2025 CBC WITH DIFFE RENTI AL/PL ATELE T MCH 27.1 pg 26.6-3 3.0 normal Not Available [facility] ([facility]) [address] [place], [address], 05/02/2025 12:07:57 05/01/2005/02/2025 CBC WITH DIFFE RENTI AL/PL ATELE T MCHC 31.3 g/dL 31.5-3 5.7 below low normal Not Available [facility] ([facility]) [address] [place], [address], 05/02/2025 12:07:57 05/01/2005/02/2025 CBC WITH DIFFE RENTI AL/PL ATELE T RDW 12.8 % 11.7-1 5.4 Not Available [facility] ([facility]) [address] [place], [address], 05/02/2025 12:07:57 05/01/2005/02/2025 CBC WITH DIFFE RENTI AL/PL ATELE T platelets 322 x10e3 /uL 150-45 0 normal Not Available [facility] ([facility]) [address] [facility] [place], [place], [address], 05/02/2025 12:07:57 05/01/2005/02/2025 CBC WITH DIFFE RENTI AL/PL ATELE T neutrophils 64 % not estab. normal Not Available [facility] ([facility]) [address] [facility] [place], [place], [address], 05/02/2025 12:07:57 05/01/2005/02/2025 CBC WITH DIFFE RENTI AL/PL ATELE T lymphs 25 % not estab. normal Not Available [facility] ([facility]) [address] [facility] [address], [place], [address], 05/02/2025 12:07:57 05/01/2005/02/2025 CBC WITH DIFFE RENTI AL/PL ATELE T monocytes 6 % not estab. normal Not Available [facility] ([facility]) [address] [facility] [address] [place], [place], [address], 05/02/2025 12:07:57 05/01/2005/02/2025 CBC WITH DIFFE RENTI AL/PL ATELE T eos 4 % not estab. normal Not Available [facility] ([facility]) [address] [facility] [address] [place], [place], [address], 05/02/2025 12:07:57 05/01/2005/02/2025 CBC WITH DIFFE RENTI AL/PL ATELE T basos 1 % not estab. normal Not Available [facility] ([facility]) [address] [facility] [address] [place], [place], [address], 05/02/2025 12:07:57 05/01/2005/02/2025 CBC WITH DIFFE RENTI AL/PL ATELE T immature cells PLANT SECURITY GUARD Not Available [facility] ([facility]) [address] [facility] [address] [place], [place], [address], 05/02/2025 12:07:57 05/01/2005/02/2025 CBC WITH DIFFE RENTI AL/PL ATELE T neutrophils (absolute) 4.1 x10e3 /uL 1.4-7. 0 normal Not Available [facility] ([facility]) [address] [facility] [address], [place], [address], 05/02/2025 12:07:57 05/01/2005/02/2025 CBC WITH DIFFE RENTI AL/PL ATELE T lymphs (absolute) 1.6 x10e3 /uL 0.7-3. 1 normal Not Available [facility] ([facility]) [address] [facility] [address] [place], [place], [address], 05/02/2025 12:07:57 05/01/2005/02/2025 CBC WITH DIFFE RENTI AL/PL ATELE T monocytes(ab solute) 0.4 x10e3 /uL 0.1-0. 9 normal Not Available [facility] ([facility]) [address] [place], [address], 05/02/2025 12:07:57 05/01/2005/02/2025 CBC WITH DIFFE RENTI AL/PL ATELE T eos (absolute) 0.2 x10e3 /uL 0.0-0. 4 normal Not Available [facility] ([facility]) [address] [place], [address], 05/02/2025 12:07:57 05/01/2005/02/2025 CBC WITH DIFFE RENTI AL/PL ATELE T baso (absolute) 0.1 x10e3 /uL 0.0-0. 2 normal Not Available [facility] ([facility]) [address] [place], [address], 05/02/2025 12:07:57 05/01/2005/02/2025 CBC WITH DIFFE RENTI AL/PL ATELE T immature granulocytes 0 % not estab. Not Available [facility] ([facility]) [address] [facility] [address] [place], [place], [address], 05/02/2025 12:07:57 05/01/2005/02/2025 CBC WITH DIFFE RENTI AL/PL ATELE T immature grans (abs) 0.0 x10e3 /uL 0.0-0. 1 Not Available [facility] ([facility]) [address] [facility] [address] [place], [place], [address], 05/02/2025 12:07:57 05/01/2005/02/2025 CBC WITH DIFFE RENTI AL/PL ATELE T NRBC PLANT SECURITY GUARD Not Available [facility] ([facility]) [address] [facility] [address] [place], [place], [address], 05/02/2025 12:07:57 05/01/2005/02/2025 CBC WITH DIFFE RENTI AL/PL ATELE T hematology comments: PLANT SECURITY GUARD Not Available [facility] ([facility]) [address] [facility] [address] [place], [place], [address], 05/02/2025 12:07:57 05/01/2005/02/2025 COMP. METAB OLIC PANEL (14) glucose 85 mg/dL 70-99 normal Not Available [facility] ([facility]) [address] [facility] [address] [place], [place], [address], 05/02/2025 12:07:57 05/01/2005/02/2025 COMP. METAB OLIC PANEL (14) BUN 12 mg/dL 6-24 normal Not Available [facility] ([facility]) [address] [facility] [address] [place], [place], [address], 05/02/2025 12:07:57 05/01/20 25 05/02/2025 COMP. METAB OLIC PANEL (14) creatinine 0.95 mg/dL 0.57-1 .00 normal Not Available [facility] ([facility]) [address] [facility] [address] [place], [place], [address], 05/02/2025 12:07:57 05/01/2005/02/2025 COMP. METAB OLIC PANEL (14) eGFR 75 mL/mi n/1.7 3 >59 normal Not Available [facility] ([facility]) [address] [facility] [address] [place], [place], [address], 05/02/2025 12:07:57 05/01/2005/02/2025 COMP. METAB OLIC PANEL (14) BUN/creatini ne ratio 13 9-23 normal Not Available [facility] ([facility]) [address] [facility] [address] [place], [place], [address], 05/02/2025 12:07:57 05/01/2005/02/2025 COMP. METAB OLIC PANEL (14) sodium 139 mmol/ L 134-14 4 normal Not Available [facility] ([facility]) [address] [facility] [address] [place], [place], [address], 05/02/2025 12:07:57 05/01/2005/02/2025 COMP. METAB OLIC PANEL (14) potassium 4.4 mmol/ L 3.5-5. 2 normal Not Available [facility] ([facility]) [address] [facility] [address] [place], [place], [address], 05/02/2025 12:07:57 05/01/2005/02/2025 COMP. METAB OLIC PANEL (14) chloride 102 mmol/ L 96-106 normal Not Available [facility] ([facility]) [address] [facility] [place], [address], 05/02/2025 12:07:57 05/01/2005/02/2025 COMP. METAB OLIC PANEL (14) carbon dioxide, total 24 mmol/ L 20-29 normal Not Available [facility] ([facility]) [address] [facility] [place], [address], 05/02/2025 12:07:57 05/01/2005/02/2025 COMP. METAB OLIC PANEL (14) calcium 9.3 mg/dL 8.7-10 .2 normal Not Available [facility] ([facility]) [address] [facility] [address] [place], [place], [address], 05/02/2025 12:07:57 05/01/2005/02/2025 COMP. METAB OLIC PANEL (14) protein, total 7.2 g/dL 6.0-8. 5 normal Not Available [facility] ([facility]) [address] [facility] [place], [address], 05/02/2025 12:07:57 05/01/2005/02/2025 COMP. METAB OLIC PANEL (14) albumin 4.5 g/dL 3.9-4. 9 normal Not Available [facility] ([facility]) [address] [facility] [place], [address], 05/02/2025 12:07:57 05/01/2005/02/2025 COMP. METAB OLIC PANEL (14) globulin, total 2.7 g/dL 1.5-4. 5 Not Available [facility] ([facility]) [address] [facility] [place], [address], 05/02/2025 12:07:57 05/01/2005/02/2025 COMP. METAB OLIC PANEL (14) bilirubin, total 0.4 mg/dL 0.0-1. 2 normal Not Available [facility] ([facility]) [address] [facility] [place], [address], 05/02/2025 12:07:57 05/01/2005/02/2025 COMP. METAB OLIC PANEL (14) alkaline phosphatase 74 IU/L 41-116 normal Not Available [facility] ([facility]) [address] [facility] [address] [place], [place], [address], 05/02/2025 12:07:57 05/01/20 25 05/02/2025 COMP. METAB OLIC PANEL (14) AST (SGOT) 13 IU/L 0-40 normal Not Available [facility] ([facility]) [address] [facility] [address] [place], [place], [address], 05/02/2025 12:07:57 05/01/20 25 05/02/2025 COMP. METAB OLIC PANEL (14) ALT (SGPT) 19 IU/L 0-32 normal Not Available [facility] ([facility]) [address] [facility] [address] [place], [place], [address], 05/02/2025 12:07:57 05/01/2005/02/2025 TEE+L IPASE amylase 49 U/L 31-110 normal Not Available [facility] ([facility]) [address] [facility] [address] [place], [place], [address], 05/02/2025 12:07:58 05/01/20 25 05/02/2025 TEE+L IPASE lipase 31 U/L 14-72 normal Not Available [facility] ([facility]) [address] [facility] [address] [place], [place], [address], 05/02/2025 12:07:58 10/06/19 25 10/05/2024 US, trans vagin al No observ ation record ed. [email or web address] [facility] [employer] [address] [facility] , [place], [address], 10/23/2024 15:17:09 10/07/19 US, trans vagin al No observ ation record ed. [email or web address] [facility] [employer] [facility] [address] [facility] , [place], [address], 10/23/2024 15:17:10 10/14/19 US, abdom en, limit ed No observ ation record ed. [email or web address] Not Available 2024 08:37:31 10/27/19 25 10/05/2024 US, trans vagin al No observ ation record ed. [email or web address] [facility] [employer] [facility] [address] [facility] , [place], [address], 10/26/2024 11:36:57 01/11/20 25 11/12/2022 medic al recor d reque st* No observ ation record ed. [email or web address] [place] [address] [address] [facility] , [place], [address], 01/11/2025 08:57:20 05/04/[address], abdom en, w/o contr ast No observ ation record ed. [facility] [address] [facility], [place], [address], 05/12/2025 08:37:14 05/17/[address], abdom en, w/wo contr ast No observ ation record ed. cynthia [facility] [address], [place], [address], 05/18/2025 15:25:08 Result Notes None recorded. Problems Name Problem SNOMED Code Status Onset Date Resolution Date Notes Provider Name and Address Organization Details Recorded Time Anxiety 11520614 Active 2024 Anuja Fierro null, [place] - [facility] 15:02:13 Acid reflux 756430100 Active 2024 Anuja Platas null, [place] - [facility] 15:02:23 Vaginal discharge 614603780 Active 2024 Margarita Salguero null, [place] - [facility] 5 11:04:28 Obese class II 398839894585 105 Active 2024 Margarita Salguero null, [place] - [facility] 5 11:04:49 Body mass index 40+ - severely obese 692481551 Active 2024 Margarita Salguero null, [place] - [facility] 5 11:45:04 Lesion of genitalia 100195608 Active 2024 Anuja HallFanny iz, DO [address], [place], [address], [place] - [facility] 12:07:53 Problem Notes None recorded. Procedures Surgical History Date Name Laterality Status Provider Name and Address Organization Details Recorded Time 7 delivery completed Anuja Fierro [place] - [facility] 09/20/2024 15:06:17 Imaging [...] Available Not Available Vitals Date Recorded Body weight Body mass index (BMI) Body height Pain severity - 0-10 verbal numeric rating [Score] - Reported Systolic And Diastolic Provider Name and Address Organization Details Last Updated DateTime 09/20/2024 16612.54 g 39.7 kg/m2 157.48 cm 0 132/84 mm[Hg] Anuja Sri [facility] [place] 15:07:19 Date Recorded Body height Body mass index (BMI) Body weight Pain severity - 0-10 verbal numeric rating [Score] - Reported Systolic And Diastolic Provider Name and Address Organization Details Last Updated DateTime 10/05/2024 157.48 cm 39.7 kg/m2 46829.54 g 0 118/82 mm[Hg] Anuja Fierro [facility] [place] 14:07:40 Date Recorded Body height Body mass index (BMI) Body weight Systolic And Diastolic Provider Name and Address Organization Details Last Updated DateTime 01/09/2025 157.48 cm 42.6 kg/m2 500756.3 g 110/80 mm[Hg] Margarita Salguero [facility] [place] 01/09/2025 11:41:16 Date Recorded Body height Body mass index (BMI) Body weight Body temperature Heart rate Oxygen saturation Respiratory rate Pain severity - 0-10 verbal numeric rating [Score] - Reported Systolic And Diastolic Provider Name and Address Organization Details Last Updated DateTime 157.48 cm 43.7 kg/m2 641245. 58 g 97.5 [degF] 67 /min 98 % 18 /min 1 117/78 mm[Hg] Barbara Lam [facility] [place] 10:35:18 Social History Question Answer Notes LastModified by Organizat ion Details LastModified Time Tobacco Smoking Status Former Smoker Quit 2002 [place]ja [place], [place] - [facility] 09/20/2024 15:05:34 Do You Have An Advance Directive? No [email or web address] Information not available 01/09/2025 Are You Blind Or Do You Have Difficulty Seeing? No [email or web address] Information not available 01/09/2025 Is Blood Transfusion Acceptable In An Emergency? Yes [email or web address] Information not available 01/09/2025 What Is Your Level Of Caffeine Consumption? Occasional [email or web address] Information not available 01/09/2025 In The 14 Days Before Symptom Onset, Have You Had Close Contact With A Laboratory-confi rmed COVID-19 While That Case Was Ill? No Information not available 01/09/2025 In The 14 Days Before Symptom Onset, Have You Had Close Contact With A Person Who Is Under Investigation For COVID-19 While That Person Was Ill? No [email or web address] Information not available 01/09/2025 Have You Been To An Area Known To Be High Risk For COVID-19? No [email or web address] Information not available 01/09/2025 Are You Deaf Or Do You Have Serious Difficulty Hearing? No [email or web address] Information not available 01/09/2025 What Type Of Diet Are You Following? REGULAR [email or web address] Information not available 01/09/2025 Have You Processed Blood Or Body Fluids From An Ebola Virus Disease Patient Without Appropriate PPE? No [email or web address] Information not available 01/09/2025 Do You Reside In Or Have You Traveled To An Area Where Ebola Virus Transmission Is Active? No [email or web address] Information not available 01/09/2025 Have There Been Any Changes To Your Family Or Social Situation? No Information not available 01/09/2025 What Is The Fluoride Status Of Your Home? Fluoridated [email or web address] Information not available 01/09/2025 When Did You Quit Smoking? 16+yearssincelas [email or web address] Information not available 01/09/2025 Have You Recently Or Are You Planning To Travel To An Area With Zika Virus? No [email or web address] Information not available 01/09/2025 Do You Have A Medical Power Of Signal Integrity Engineer? No [email or web address] Information not available 01/09/2025 What Was The Date Of Your Most Recent Tobacco Screening? 01/09/2025 [email or web address] Information not available 01/09/2025 What Is Your Current Pack Years? 10packyears [email or web address] Information not available 01/09/2025 Do You Use Protection During Sex? No [email or web address] Information not available 01/09/2025 Do You Use Protection Against STDs? No [email or web address] Information not available 01/09/2025 What Is Your Relationship Status? [email or web address] Information not available 01/09/2025 Are You Sexually Active? Yes [email or web address] Information not available 01/09/2025 Do You Have Smoke And Carbon Monoxide Detectors In Your Home? Yes Information not available 01/09/2025 Are You Passively Exposed To Smoke? No [email or web address] Information not available 01/09/2025 How Much Tobacco Do You Smoke? No [email or web address] Information not available 01/09/2025 Has Tobacco Cessation Counseling Been Provided? No [email or web address] Information not available 01/09/2025 How Many Years Have You Smoked Tobacco? 5 [email or web address] Information not available 09/20/2024 Do You Have Difficulty Walking Or Climbing Stairs? No Information not available 01/09/2025 What Contraceptive Method Was Reported At Start Of This Visit? IUD With Progestin [email or web address] Information not available 01/09/2025 What Contraceptive Method Was Reported At End Of This Visit? IUD With Progestin [email or web address] Information not available 01/09/2025 Do You Want To Talk About Contraception Or Prevention During Your Visit Today? No - I Do Not Want To Talk About Contraception Today Because I Am Here For Something Else [email or web address] Information not available 01/09/2025 Do You Have Any Future Plans To Get ? No, I Don't Want To Become [email or web address] Information not available 01/09/2025 Sex: Female Functional Status Question Answer Note LastModified by Organizat ion Details LastModified Time Do you use any illicit or recreational drugs? No [email or web address] Information not available 09/20/2024 Do you or have you ever used any other forms of tobacco or nicotine? No [email or web address] Information not available 09/20/2024 What is your level of alcohol consumption? None [email or web address] Information not available 01/09/2025 Do you have transportation difficulties? No [email or web address] Information not available 01/09/2025 What is your status? Not [email or web address] Information no t available 01/09/2025 Are you able to walk independently without assistance or assistive devices? [email or web address] Information not available 01/09/2025 Do you have difficulty doing errands alone? No Information not available 01/09/2025 Are you able to care for yourself independently? Yes [email or web address] Information not available 01/09/2025 Do you have difficulty dressing, bathing, grooming, or toileting? No [email or web address] Information not available 01/09/2025 What is your exercise level? Occasional [email or web address] Information not available 01/09/2025 Mental Status Question Answer Note LastModified by Organizat ion Details LastModified Time Do you feel stressed (tense, restless, nervous, or anxious, or unable to sleep at night)? [id number] [email or web address] Information not available 01/09/2025 Do you have difficulty concentrating, remembering or making decisions? No [email or web address] Information no t available 01/09/2025 Family History Relationship Description Onset Age of this Age Resolved Age Notes LastModified by Organization Details LastModified Time Father No current problems or disability [email or web address] Not available 15:04:46 Mother No current problems or disability [email or web address] Not available 15:04:46 Medical History No medical [...] virus, trivalent, PF 6 completed Not Available [facility] 05/01/2025 10:18:08 COVID-19, mRNA, LNP-S, PF, 100 mcg/0.5mL dose or 50 mcg/0.25mL dose 1 completed Not Available [facility] 05/01/2025 10:18:08 COVID-19, mRNA, LNP-S, PF, 100 mcg/0.5mL dose or 50 mcg/0.25mL dose 1 completed Not Available [facility] 05/01/2025 10:18:08 COVID-19, mRNA, LNP-S, PF, 100 mcg/0.5mL dose or 50 mcg/0.25mL dose 1 completed Not Available [facility] 05/01/2025 10:18:08 Influenza, split virus, quadrivalent, PF 1 completed Not Available [facility] 05/01/2025 10:18:08 Influenza, MDCK, quadrivalent, PF 3 completed Not Available [facility] 05/01/2025 10:18:08 Influenza, split virus, trivalent, preservative 4 completed Anaya Arreaga null, [place] - [facility] 03/17/2024 14:07:15 Influenza, split virus, trivalent, PF 5 completed Radha Iglesias null, [place] - [facility] 05/01/2025 13:08:40 Past Encounters Encounter ID Performer Location Encounter Start Date Encounter Closed Date Diagnosis/Indication Diagnosis SNOMED-CT Code Diagnosis ICD10 Code Diagnosis IMO Codes Diagnosis Note [id number] Shana Young DO [facility] [address] [address] 03/17/2024 13:56:08 03/17/2024 14:06:35 Influenza vaccine needed 1364078982 106 Z23 [id number] Pamela Wilson MD [facility] [employer] [address] [place] [address] SAHUN Christian [address] 09/20/2024 14:45:25 09/20/2024 15:40:21 Abdominal bloating 291163289 R14.0 Anxiety 68321072 F41.9 Heartburn 34852609 R12 Hot sweats 450901348 R61 [id number] MD Yee Cartagena MANAGER ARCHITECTURAL [address] [place] [address] SHAUN Christian [id number] 10/05/2024 13:23:19 10/05/2024 14:13:36 Abdominal bloating 700948665 R14.0 Anxiety 23359897 F41.9 Hot sweats 177716322 R61 [id number] ANUJA ARANDA DO [facility] [employer] [address] [place] [address] SHAUN Christian [address] 01/09/2025 11:24:59 01/09/2025 12:08:10 Vaginal discharge 178668310 N89.8 44029 Obese class II 051082221 1 18561 E66.812 Z68.39 [id number] Medical re cords review 156739003 Z76.89 9234673505 Body mass index 40+ - severely obese 043055847 E66.813 Z68.41 9675147 Lesion of genitalia 7243 64221 R39.89 266042 Intermitte nt sore on labia for >1 year. Per patient, had HSV blood testing and it was negative. No sores seen on today's exam, overall healthy vaginal mucosa. Will await NuSwab. Discussed returning when she does find a sore to see if it can be cultured. [id number] Franc Elizabeth APRN [address] [address] 05/01/2025 10:15:13 05/01/2025 11:19:15 Influenza vaccine needed 5101754754 106 Z23 Body mass index 40+ - severely obese 149719679 E66.813 Z68.41 8028757 43.7 Upper abdominal pain 831 46597 R10.10 [id number] Health Concerns Section Related Observation LastModified by Organization Detai ls LastModified Time None Recorded Concern Status LastModified by Organization Details LastModified Time None Recorded Advance Directives Directive N: Payers Insurance Date Sequence Insurance Name Policy Number Policy Graham Covered Member ID Graham Member ID Guarantor Name 05/21/2025 1 [place] [id number] Liborio Leyva [id number] Nicole Leyva Notes Date Note Type Note Provider Name and Address Organization Details Recorded Time 09/20/2024 text/html ROS as noted in the HPI Nicole is here for several issues. She reports anxiety. 1.5 weeks ago, she went to the ER for her heart racing. She has since seen Dr. Bush and is on 25mg PO metoprolol. This has been helping a little, but she desires to find the root cause. She has also had chest tightness. She wonders if this could be related to acid reflux. She is also bloating a lot. She reports these symptoms have been going on for several months. She does drink a lot of caffeine. She reports 4-5 pound unintentional weight loss. No RUQ pain. She is taking prilosec OTC. No diarrhea or constipation. No urinary issues. She has an IUD. She has had a Mirena for 16 years (switch outs). No bleeding since then. No pain with intercourse. She has had some hot flashes. Pamela Wilson MD [address], [place], [address], [facility] [facility] [facility] 09/23/2024 09:50:53 10/05/2024 text/html ROS as noted in the HPI Nicole is here for pelvic US given abdominal bloating. She is otherwise doing well. Her GI symptoms have improved. She still plans to get the RUQ US. Pamela Wilson MD [address], [place], [address], [employer] [facility] [facility] 10/23/2024 15:13:31 01/09/2025 text/html VaginitisReporte d by PatientHPIFor associated symptoms, patient reportslesionsbut reportsno rash. For location, patient reportsexternal. For quality, patient reportsitching,burning ,swelling,redness, andodor none. For severity, patient reportsmild. For onset/timing, patient reportsintermittent. For duration, (comes and goes).ROS as noted in the HPI Genital sore>1 yearlocated on her labia, L>RHx neg for herpes per PCP.Burning sensation, itchy, sometimes bleed.no real discharge issue. no malodorFeels like her left labia has changed in size, maybe thinner?Sexually Active with 1 partner, .Patient does note that her lesions have not been as frequent ever since she started treating her anxiety with medication. Anuja Lynn DO [address], [place], [address], [facility] 01/09/2025 12:10:18 05/01/2025 text/html ROS as noted in the HPI 45 yr old female presents for possible gallbladder issues or hernia. She has had symptoms off and on for a year. Intermittent bilateral pain under breast and burning in stomach. Pain also goes to back, between shoulder blades, and left shoulder. Pain worse after eating fatty or spicy food Franc Elizabeth, [employer] IN[employer]ANT C[employer] [address], [place], [address], [place] - [facility] 05/01/2025 10:58:09 OBGyn Episode No OBEpisode recorded.
--- NOTE | 2025-05-26 06:58 | NM_ITS ---
FINAL REPORT CLINICAL HISTORY: GENERALIZED ABD PAIN 7:10 am 8.14 [facility] choletec 2.2 mcg of cck no sludge or shadowing stones form u/s report done at [facility] 10/12/24 COMPARISON: None FINDINGS: Sequential anterior projection images of the abdomen were obtained after the intravenous injection of 8.14 mCi technetium 99m Choletec. There is normal uptake of radiotracer by the liver. The bile ducts are visualized by 10 minutes. Gallbladder activity is seen by 10 minutes. Bowel activity is noted by 40 minutes. After 1 hour, 2.2 ?g of CCK was injected intravenously for calculation of gallbladder ejection fraction. The gallbladder ejection fraction is 89%, which is within normal limits. IMPRESSION: No evidence of cystic duct or bile duct obstruction. Normal gallbladder ejection fraction of 89%. Reviewed, Interpreted and Dictated by Kamari Raman MD Transcribed by Sarahi Pickard Authenticated and [facility]
[2025-05-26] MEDS: SINCALIDE 2.2 MCG in 0.9 % SODIUM CHLORIDE 50 ML 100 MCG IV (09:34)
[2025-05-26] MEDS: TC99M SULF.COLLOID;1 DOSE (UP TO 20 MCI) IV (09:42)
[2025-05-26] MEDS: SODIUM CHLORIDE 0.9% 10ML SYR (RAD ONLY) 10 ML IV (09:42)
== END 2025-05-26 23:59 | disposition home or self-care (01) ==
LOC: RAD 06:54
PROVIDERS: PCP Nurse Practitioner Family; Visit Provider Nurse Practitioner Family
DX: R10.84 Generalized abdominal pain (principal)
CPT/HCPCS: 78227; A9541; J2805

== ENCOUNTER 2025-06-10 12:19 | Outpatient (CLI) | payer BC, SELFPAY ==
--- OUTSIDE RECORDS SUMMARY | 2025-06-10 12:21 | XMS_ITS | Clinical Summary ---
Author Organization [facility] Address [address] [place] [place] [address] Phone Care Team Providers Care Day Care Provider Name Role Phone Ewelina Curry MD Primary Care Provider [phone] Social History Tobacco Use Types Packs/Day Years [...] EDT Impressions 11/13/2022 7:14 AM EDT Negative ([id number]) ~ RECOMMENDATION: Routine screening mammogram in 1 [...] the next mammogram, in accordance with the [employer] and the Society of Breast Imaging recommendations. Narrative 11/13/2022 7:14 AM EDT Procedure:MM MAMMO DIGITAL KAMERON SCREEN BILAT ~ Reason for exam: screening, asymptomatic. Z12.31-Encounter for screening mammogram for malignant neoplasm of fifaas-JJF-15-CM ~ MM MAMMO DIGITAL KAMERON SCREEN BILAT [...] for screening mammogram for malignant neoplasm of [id number]-CM ~ MM MAMMO DIGITAL KAMERON SCREEN BILAT Bilateral CC and MLO view(s) were taken. There are scattered fibroglandular densities. Prior study comparison: Compared with prior studies the most recentbeing 05/25/20 No mammographic evidence of malignancy. ~ IMPRESSION: Negative ([id number]-8) ~ RECOMMENDATION: Routine screening mammogram in 1 [...] the next mammogram, in accordance with the [employer] and the Society of Breast Imaging recommendations. us Quoc Lozano MD IMG MAMMOGRAPHY ORDERABLES Fin al Result from Last 3 Months or Most Recently Relevant to Health Maintenance Insurance [employer] POS Care Teams Day Care Provider Relationship Specialty Start Date End Date Ewelina Curry MD [address] [place] [address] PCP - General Family Medicine 11/24/12
--- OUTSIDE RECORDS SUMMARY | 2025-06-10 12:21 | XMS_ITS | Continuity of Care Document ---
Author Organization [facility] Address [address] [place] [address] Assessment No assessment recorded. Plan of Treatment Reminders Order Date Submit Date Provider Last Modified By Organization Details Last Modified Time Details Appointments None recorded. Lab amylase + lipase, serum 2024 S[facility], [address], [address], [place], [address], 12:07:58 CBC w/ auto diff 2024 S[facility], [address], [address], [place], [address], 12:07:57 CMP, serum or plasma 2024 S[facility], [address], [address], [place], [address], 12:07:57 Referral None recorded. Procedures None recorded. Surgeries None recorded. Imaging CT, abdomen, w/o contrast 2024 025 [facility], [address] [place] [address], [place], [address], 13:04:19 Medication Orders None recorded. Patient TargetsNo targets recorded. Patient Instructions Encounter Date Encounter Id Patient Instructions Last Modified By Organization Details Last Modified Time 05/01/2025 [id number] learning about healthy weight efryman Not available 05/01/2025 10:55:17 body mass index: care instructions efryman Not available 05/01/2025 10:55:17 Reason for Referral None Reported. Results Created Date Observation Date Name Description Value Unit Range Abnormal Flag Note LastModifiedBy Organization Detail LastModifiedTime 05/01/2005/02/2025 CBC WITH DIFFE RENTI AL/PL ATELE T WBC 6.3 x10e3 /uL 3.4-10 .8 normal Not Available [facility] ([facility]) [address] [place], [address], 05/02/2025 12:07:57 05/01/2005/02/2025 CBC WITH DIFFE RENTI AL/PL ATELE T RBC 4.83 x10e6 /uL 3.77-5 .28 normal Not Available [facility] ([facility]) [address] [place], [address], 05/02/2025 12:07:57 05/01/2005/02/2025 CBC WITH DIFFE RENTI AL/PL ATELE T hemoglobin 13.1 g/dL 11.1-1 5.9 normal Not Available [facility] ([facility]) [address] [place], [address], 05/02/2025 12:07:57 05/01/2005/02/2025 CBC WITH DIFFE RENTI AL/PL ATELE T hematocrit 41.8 % 34.0-4 6.6 normal Not Available [facility] ([facility]) [address] [place], [address], 05/02/2025 12:07:57 05/01/2005/02/2025 CBC WITH DIFFE RENTI AL/PL ATELE T MCV 87 fL 79-97 normal Not Available [facility] ([facility]) [address] [place], [address], 05/02/2025 12:07:57 05/01/2005/02/2025 CBC WITH DIFFE RENTI AL/PL ATELE T MCH 27.1 pg 26.6-3 3.0 normal Not Available [facility] ([facility]) [address] [facility], [place], [address], 05/02/2025 12:07:57 05/01/2005/02/2025 CBC WITH DIFFE RENTI AL/PL ATELE T MCHC 31.3 g/dL 31.5-3 5.7 below low normal Not Available [facility] ([facility]) [address] [facility], [place], [address], 05/02/2025 12:07:57 05/01/2005/02/2025 CBC WITH DIFFE RENTI AL/PL ATELE T RDW 12.8 % 11.7-1 5.4 Not Available [facility] ([facility]) [address] [facility], [place], [address], 05/02/2025 12:07:57 05/01/2005/02/2025 CBC WITH DIFFE RENTI AL/PL ATELE T platelets 322 x10e3 /uL 150-45 0 normal Not Available [facility] ([facility]) [address] [facility], [place], [address], 05/02/2025 12:07:57 05/01/2005/02/2025 CBC WITH DIFFE RENTI AL/PL ATELE T neutrophils 64 % not estab. normal Not Available [facility] ([facility]) [address] [facility], [place], [address], 05/02/2025 12:07:57 05/01/2005/02/2025 CBC WITH DIFFE RENTI AL/PL ATELE T lymphs 25 % not estab. normal Not Available [facility] ([facility]) [address] [facility], [place], [address], 05/02/2025 12:07:57 05/01/20 25 05/02/2025 CBC WITH DIFFE RENTI AL/PL ATELE T monocytes 6 % not estab. normal Not Available [facility] ([facility]) [address] [place], [address], 05/02/2025 12:07:57 05/01/2005/02/2025 CBC WITH DIFFE RENTI AL/PL ATELE T eos 4 % not estab. normal Not Available [facility] ([facility]) [address] [place], [address], 05/02/2025 12:07:57 05/01/2005/02/2025 CBC WITH DIFFE RENTI AL/PL ATELE T basos 1 % not estab. normal Not Available [facility] ([facility]) [address] [place], [address], 05/02/2025 12:07:57 05/01/2005/02/2025 CBC WITH DIFFE RENTI AL/PL ATELE T immature cells ARTIFICIAL BREEDING DISTRIBUTOR Not Available [facility] ([facility]) [address] [place], [address], 05/02/2025 12:07:57 05/01/2005/02/2025 CBC WITH DIFFE RENTI AL/PL ATELE T neutrophils (absolute) 4.1 x10e3 /uL 1.4-7. 0 normal Not Available [facility] ([facility]) [address] [place], [address], 05/02/2025 12:07:57 05/01/2005/02/2025 CBC WITH DIFFE RENTI AL/PL ATELE T lymphs (absolute) 1.6 x10e3 /uL 0.7-3. 1 normal Not Available [facility] ([facility]) [address] [place], [address], 05/02/2025 12:07:57 05/01/20 25 05/02/2025 CBC WITH DIFFE RENTI AL/PL ATELE T monocytes(ab solute) 0.4 x10e3 /uL 0.1-0. 9 normal Not Available [facility] ([facility]) [address] [facility], [place], [address], 05/02/2025 12:07:57 05/01/2005/02/2025 CBC WITH DIFFE RENTI AL/PL ATELE T eos (absolute) 0.2 x10e3 /uL 0.0-0. 4 normal Not Available [facility] ([facility]) [address] [facility], [place], [address], 05/02/2025 12:07:57 05/01/2005/02/2025 CBC WITH DIFFE RENTI AL/PL ATELE T baso (absolute) 0.1 x10e3 /uL 0.0-0. 2 normal Not Available [facility] ([facility]) [address] [facility], [place], [address], 05/02/2025 12:07:57 05/01/2005/02/2025 CBC WITH DIFFE RENTI AL/PL ATELE T immature granulocytes 0 % not estab. Not Available [facility] ([facility]) [address] [facility], [place], [address], 05/02/2025 12:07:57 05/01/2005/02/2025 CBC WITH DIFFE RENTI AL/PL ATELE T immature grans (abs) 0.0 x10e3 /uL 0.0-0. 1 Not Available [facility] ([facility]) [address] [place], [address], 05/02/2025 12:07:57 05/01/2005/02/2025 CBC WITH DIFFE RENTI AL/PL ATELE T NRBC ARTIFICIAL BREEDING DISTRIBUTOR Not Available [facility] ([facility]) [address] [facility], [place], [address], 05/02/2025 12:07:57 05/01/2005/02/2025 CBC WITH DIFFE RENTI AL/PL ATELE T hematology comments: ARTIFICIAL BREEDING DISTRIBUTOR Not Available [facility] ([facility]) [address] [facility], [place], [address], 05/02/2025 12:07:57 05/01/2005/02/2025 COMP. METAB OLIC PANEL (14) glucose 85 mg/dL 70-99 normal Not Available [facility] ([facility]) [address] [place], [address], 05/02/2025 12:07:57 05/01/2005/02/2025 COMP. METAB OLIC PANEL (14) BUN 12 mg/dL 6-24 normal Not Available [facility] ([facility]) [address] [place], [address], 05/02/2025 12:07:57 05/01/2005/02/2025 COMP. METAB OLIC PANEL (14) creatinine 0.95 mg/dL 0.57-1 .00 normal Not Available [facility] ([facility]) [address] [facility], [place], [address], 05/02/2025 12:07:57 05/01/2005/02/2025 COMP. METAB OLIC PANEL (14) eGFR 75 mL/mi n/1.7 3 >59 normal Not Available [facility] ([facility]) [address] [facility], [place], [address], 05/02/2025 12:07:57 05/01/2005/02/2025 COMP. METAB OLIC PANEL (14) BUN/creatini ne ratio 13 9-23 normal Not Available [facility] ([facility]) [address] [place], [address], 05/02/2025 12:07:57 05/01/2005/02/2025 COMP. METAB OLIC PANEL (14) sodium 139 mmol/ L 134-14 4 normal Not Available [facility] ([facility]) [address] [place], [address], 05/02/2025 12:07:57 05/01/2005/02/2025 COMP. METAB OLIC PANEL (14) potassium 4.4 mmol/ L 3.5-5. 2 normal Not Available [facility] ([facility]) [address] [place], [address], 05/02/2025 12:07:57 05/01/2005/02/2025 COMP. METAB OLIC PANEL (14) chloride 102 mmol/ L 96-106 normal Not Available [facility] ([facility]) [address] [facility], [place], [address], 05/02/2025 12:07:57 05/01/2005/02/2025 COMP. METAB OLIC PANEL (14) carbon dioxide, total 24 mmol/ L 20-29 normal Not Available [facility] ([facility]) [address] [place], [address], 05/02/2025 12:07:57 05/01/2005/02/2025 COMP. METAB OLIC PANEL (14) calcium 9.3 mg/dL 8.7-10 .2 normal Not Available [facility] ([facility]) [address] [place], [address], 05/02/2025 12:07:57 05/01/2005/02/2025 COMP. METAB OLIC PANEL (14) protein, total 7.2 g/dL 6.0-8. 5 normal Not Available [facility] ([facility]) [address] [place], [address], 05/02/2025 12:07:57 05/01/2005/02/2025 COMP. METAB OLIC PANEL (14) albumin 4.5 g/dL 3.9-4. 9 normal Not Available [facility] ([facility]) [address] [place], [address], 05/02/2025 12:07:57 05/01/2005/02/2025 COMP. METAB OLIC PANEL (14) globulin, total 2.7 g/dL 1.5-4. 5 Not Available [facility] ([facility]) [address] [place], [address], 05/02/2025 12:07:57 05/01/20 25 05/02/2025 COMP. METAB OLIC PANEL (14) bilirubin, total 0.4 mg/dL 0.0-1. 2 normal Not Available [facility] ([facility]) [address] [place], [address], 05/02/2025 12:07:57 05/01/2005/02/2025 COMP. METAB OLIC PANEL (14) alkaline phosphatase 74 IU/L 41-116 normal Not Available [facility] ([facility]) [address] [place], [address], 05/02/2025 12:07:57 05/01/2005/02/2025 COMP. METAB OLIC PANEL (14) AST (SGOT) 13 IU/L 0-40 normal Not Available [facility] ([facility]) [address] [place], [address], 05/02/2025 12:07:57 05/01/20 25 05/02/2025 COMP. METAB OLIC PANEL (14) ALT (SGPT) 19 IU/L 0-32 normal Not Available [facility] ([facility]) [address] [place], [address], 05/02/2025 12:07:57 05/01/2005/02/2025 TEE+L IPASE amylase 49 U/L 31-110 normal Not Available [facility] ([facility]) [address] [place], [address], 05/02/2025 12:07:58 05/01/20 25 05/02/2025 TEE+L IPASE lipase 31 U/L 14-72 normal Not Available [facility] ([facility]) [address], [place], [address], 05/02/2025 12:07:58 05/04/[address], abdom en, w/o contr ast No observ ation record ed. hilda [facility] [address], [place], [address], 05/12/2025 08:37:14 05/17/[address], abdom en, w/wo contr ast No observ ation record ed. cynthia [facility] [address], [place], [address], 05/18/2025 15:25:08 05/26/20 25 05/26/2025 NM, hepat obili jonnie scan, w/ CCK No observ ation record ed. [facility] [address], [place], [address], 05/29/2025 15:41:21 Result Notes None recorded. Problems Name Problem SNOMED Code Status Onset Date Resolution Date Notes Provider Name and Address Organization Details Recorded Time Anxiety 56383850 Active 2024 Leyla Fierro null, [place] - [facility] 15:02:13 Acid reflux 552568822 Active 2024 Leyla Fierro null, [place] - [facility] 15:02:23 Vaginal discharge 127108811 Active 2024 Margarita Salguero null, [place] - [facility] 11:04:28 Obese class II 938771689908 105 Active 2024 Margarita Salguero null, [place] - [facility] 11:04:49 Body mass index 40+ - severely obese 587344716 Active 2024 Margarita Salguero null, [place] - [facility] 11:45:04 Lesion of genitalia 248526529 Active 2024 Leyla Crowder iz, DO [address], [place], [address], [place] - [facility] 12:07:53 Problem Notes None [...] Last Updated DateTime 157.48 cm 43.7 kg/m2 701117. 58 g 97.5 [degF] 67 /min 98 % 18 /min 1 117/78 mm[Hg] Barbara Lam [place] - [facility] 10:35:18 Social History Question Answer Notes LastModified by Organizat ion Details LastModified Time Tobacco Smoking Status Former Smoker Quit 2002 Leyla Bhattpadilla garcia, [place] - [facility] 09/20/2024 15:05:34 Do You Have An Advance Directive? No [email or web address] Information not available 01/09/2025 Are You Blind Or Do You Have Difficulty Seeing? No [email or web address] Information not available 01/09/2025 Is Blood Transfusion Acceptable In An Emergency? Yes [email or web address] Information not available 01/09/2025 What Is Your Level Of Caffeine Consumption? Occasional [email or web address] Information not available 01/09/2025 In The 14 Days Before Symptom Onset, Have You Had Close Contact With A Laboratory-confi rmed COVID-19 While That Case Was Ill? No [email or web address] Information not available 01/09/2025 In The 14 Days Before Symptom Onset, Have You Had Close Contact With A Person Who Is Under Investigation For COVID-19 While That Person Was Ill? No [email or web address] Information not available 01/09/2025 Have You Been To An Area Known To Be High Risk For COVID-19? No [email or web address] Information not available 01/09/2025 Are You Deaf Or Do You Have Serious Difficulty Hearing? No [email or web address] Information not available 01/09/2025 What Type Of Diet Are You Following? REGULAR [email or web address] Information not available 01/09/2025 Have You Processed Blood Or Body Fluids From An Ebola Virus Disease Patient Without Appropriate PPE? No [email or web address] Information not available 01/09/2025 Do You Reside In Or Have You Traveled To An Area Where Ebola Virus Transmission Is Active? No [email or web address] Information not available 01/09/2025 Have There Been Any Changes To Your Family Or Social Situation? No [email or web address] Information not available 01/09/2025 What Is The Fluoride Status Of Your Home? Fluoridated [email or web address] Information not available 01/09/2025 When Did You Quit Smoking? 16+yearssincelas kamila [email or web address] Information not available 01/09/2025 Have You Recently Or Are You Planning To Travel To An Area With Zika Virus? No [email or web address] Information not available 01/09/2025 Do You Have A Medical Power Of Refrigeration Unit Repairer? No [email or web address] Information not available 01/09/2025 What Was The Date Of Your Most Recent Tobacco Screening? 01/09/2025 [email or web address] Information not available 01/09/2025 What Is Your Current Pack Years? 10packyears [email or web address] Information not available 01/09/2025 Do You Use Protection During Sex? No Information not available 01/09/2025 Do You Use Protection Against STDs? No Information not available 01/09/2025 What Is Your Relationship Status? [email or web address] Information not available 01/09/2025 Are You Sexually Active? Yes [email or web address] Information not available 01/09/2025 Do You Have Smoke And Carbon Monoxide Detectors In Your Home? Yes [email or web address] Information not available 01/09/2025 Are You Passively Exposed To Smoke? No [email or web address] Information not available 01/09/2025 How Much Tobacco Do You Smoke? No [email or web address] Information not available 01/09/2025 Has Tobacco Cessation Counseling Been Provided? No [email or web address] Information not available 01/09/2025 How Many Years Have You Smoked Tobacco? 5 [email or web address] Information not available 09/20/2024 Do You Have Difficulty Walking Or Climbing Stairs? No [email or web address] Information not available 01/09/2025 What Contraceptive Method Was Reported At Start Of This Visit? IUD With Progestin [email or web address] Information not available 01/09/2025 What Contraceptive Method Was Reported At End Of This Visit? IUD With Progestin [email or web address] Information not available 01/09/2025 Do You Want To Talk About Contraception Or Prevention During Your Visit Today? No - I Do Not Want To Talk About Contraception Today Because I Am Here For Something Else [email or web address] Information not available 01/09/2025 Do You Have Any Future Plans To Get ? No, I Don't Want To Become Information not available 01/09/2025 Sex: Female Functional Status Question Answer Note LastModified by [employer]PACE Details LastModified Time Do you use any illicit or recreational drugs? No [email or web address] Information not available 09/20/2024 Do you or have you ever used any other forms of tobacco or nicotine? No Information not available 09/20/2024 What is your level of alcohol consumption? None [email or web address] Information not available 01/09/2025 Do you have transportation difficulties? No [email or web address] Information not available 01/09/2025 What is your status? Not [email or web address] Information no t available 01/09/2025 Are you able to walk independently without assistance or assistive devices? YESWOREST [email or web address] Information not available 01/09/2025 Do you have difficulty doing errands alone? No [email or web address] Information not available 01/09/2025 Are you able to care for yourself independently? Yes Information not available 01/09/2025 Do you have difficulty dressing, bathing, grooming, or toileting? No [email or web address] Information not available 01/09/2025 What is your exercise level? Occasional [email or web address] Information not available 01/09/2025 Mental Status Question Answer Note LastModified by [employer] Details LastModified Time Do you feel stressed (tense, restless, nervous, or anxious, or unable to sleep at night)? [id number] [email or web address] Information not available 01/09/2025 Do you have difficulty concentrating, remembering or making decisions? No [email or web address] Information no t available 01/09/2025 Family History Relationship Description Onset Age of this Age Resolved Age Notes LastModified by Organization Details LastModified Time Father No current problems or disability [email or web address] Not available 15:04:46 Mother No current problems or disability [email or web address] Not available 15:04:46 Medical History No medical [...] virus, trivalent, PF 6 completed Not Available [facility] 05/01/2025 10:18:08 COVID-19, mRNA, LNP-S, PF, 100 mcg/0.5mL dose or 50 mcg/0.25mL dose 1 completed Not Available [facility] 05/01/2025 10:18:08 COVID-19, mRNA, LNP-S, PF, 100 mcg/0.5mL dose or 50 mcg/0.25mL dose 1 completed Not Available [facility] 05/01/2025 10:18:08 COVID-19, mRNA, LNP-S, PF, 100 mcg/0.5mL dose or 50 mcg/0.25mL dose 1 completed Not Available [facility] 05/01/2025 10:18:08 Influenza, split virus, quadrivalent, PF 1 completed Not Available [facility] 05/01/2025 10:18:08 Influenza, MDCK, quadrivalent, PF 3 completed Not Available [facility] 05/01/2025 10:18:08 Influenza, split virus, trivalent, preservative 4 completed Anaya Arreaga null, [place] - [facility] 03/17/2024 14:07:15 Influenza, split virus, trivalent, PF 5 completed Radah Iglesias null, [place] - [facility] 05/01/2025 13:08:40 Past Encounters Encounter ID Performer Location Encounter Start Date Encounter Closed Date Diagnosis/Indication Diagnosis SNOMED-CT Code Diagnosis ICD10 Code Diagnosis IMO Codes Diagnosis Note [id number] Franc Elizabeth APRN [address] [address] 05/01/2025 10:15:13 05/01/2025 11:19:15 Influenza vaccine needed 4504519728 106 Z23 Body mass index 40+ - severely obese 948839364 E66.813 Z68.41 8336334 43.7 Upper abdominal pain 831 19385 R10.10 [id number] Health Concerns Section Related Observation LastModified by Organization Detai ls LastModified Time None Recorded Concern Status LastModified by Organization Details LastModified Time None Recorded Payers Encounter Date Sequence Insurance Name Policy Number Policy Graham Covered Member ID Graham Member ID Guarantor Name 05/01/2025 1 [employer] [id number] Liborio Leyva [id number] Nicole Leyva Notes Date Note Type [...] eating fatty or spicy food Franc Elizabeth, HYDRATOR OPERATOR [address], [place], [address], [place] - [facility] 05/01/2025 10:58:09 OBGyn Episode No OBEpisode recorded.
--- OUTSIDE RECORDS SUMMARY | 2025-06-10 12:21 | XMS_ITS | Data Portability ---
Author Organization [facility] Address [address] [place] [address] Assessment Encounter Date Assessment Date Assessment LastModified [...] SANGEETHA [facility], [address], [address], [place], [address], 12:07:58 CBC w/ auto diff 2024 025 SANGEETHA [facility], [address], [place] [address], [place], [address], 12:07:57 CMP, serum or plasma 2024 025 SANGEETHA [facility], [address], [place] [address], [place], [address], 12:07:57 cultur e, urine 2024 025 SANGEETHA [facility], [address], [place] [address], [place], [address], 07/09/202 5 03:08:10 urinal ysis, dipsti ck 2024 025 [email or web address] Henrietta [employer], [address] [place] [address] , [place], [address], 5 12:06:09 STI panel 2024 025 SANGEETHA [facility], [address], [place] [address], [place], [address], 5 15:11:00 CBC w/ auto diff 2024 025 SANGEETHA [facility], [address], [place] [address], [place], [address], 5 08:23:48 CMP, serum or plasma 2024 025 SANGEETHA [facility], [address], [place], [place], [address], 5 08:23:49 amylas e + lipase , serum 2024 025 SANGEETHA [facility], [address], [place] [address], [place], [address], 5 08:23:50 HCG, intact + beta subuni t, quant, serum or plasma 2024 025 SANGEETHA [facility], [address], [place] [address], [place], [address], 5 08:23:51 hormon e panel, serum or plasma 2024 025 SANGEETHA [facility], [address], [place] [address], [place], [address], 5 08:23:46 TSH + free T4, serum 2024 025 SANGEETHA [facility], [address], [place], [place], [address], 5 08:23:47 Referral gastro entero logist referr al 2024 025 SANGEETHA Hairston MD, [address] [place] [address] Dr, [place] [address], [place], [address], 5 08:05:10 primar y care provid er referr al 2024 025 [email or web address] Yamileth Wheat APRN, [address] [place] [address] , [place], [address], 5 14:33:18 Procedures None record ed. Surgeries None record ed. Imaging CT, abdome n, w/o contra st 2024 025 [facility], [address] [place] [address], [address], 5 13:04:19 US, transv aginal 2024 025 [facility] [employer], [address] [place] [address] ., [place], [address], 5 15:17:14 Medication Orders Pepcid 20 mg tablet 2024 025 [facility], [address] [place] [address], [address], 5 17:30:58 buspir one 5 mg tablet 2024 025 [facility], [address] [place] [address], [address], 5 17:30:55 Patient TargetsNo targets recorded. Patient Instructions Encounter Date Encounter Id Patient Instructions Last Modified By Organizati on Details Last Modified Time 09/20/2024 [id number] Indigestion (Dyspepsia): Care Instructions [email or web address] Not available [...] PCP [email or web address] Not available 09/23/2024 09:50:24 10/05/2024 [id number] US today is over all WNL. She plans to get RUQ US. She does note that pepcid has been helping with her indigestion and the bloating symptoms have been improving. 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 Referral for Abdominal bloating Referring Physician: Pamela Wilson, SPECIALIST WOUND CARE, Encounter Date: 09/20/2024 Primary Care Provider Referr al for Anxiety Referring Physician: Pamela Wilson SPECIALIST WOUND CARE, Encounter Date: 09/20/2024 Results Created Date Observation Date Name Description Value Unit Range Abnormal Flag Note LastModifiedBy Organization Detail LastModifiedTime 09/21/19 25 09/21/2024 FSH+L H+E2 LH 9.9 mIU/m L normal Adult Femal e Range Folli cular phase 2.4 - 12.6 Ovula tion phase 14.0 - 95.6 Lutea l phase 1.0 - 11.4 Postm enopa usal 7.7 - 58.5 Not Available [facility] ([facility]) [address] [place], [address], 09/21/2024 08:23:46 09/21/19 25 09/21/2024 FSH+L H+E2 FSH 9.9 mIU/m L Adult Femal e Range Folli cular phase 3.5 - 12.5 Ovula tion phase 4.7 - 21.5 Lutea l phase 1.7 - 7.7 Postm enopa usal 25.8 - 134.8 Not Available [facility] ([facility]) [address] [place], [address], 09/21/2024 08:23:46 09/21/19 25 09/21/2024 FSH+L H+E2 estradiol 27.2 pg/mL normal Adult Femal e Range Folli cular phase 12.5 - 166.0 Ovula tion phase 85.8 - 498.0 Lutea l phase 43.8 - 211.0 Postm enopa usal <6.0 - 54.7 Pregn dmitri 1st trime ster 215.0 - >4300 .0 Zofia ECLIA metho dolog y Not Available [facility] ([facility]) [address] [place], [address], 09/21/2024 08:23:46 09/21/1909/21/2024 TSH+F REE T4 TSH 1.050 uIU/m L 0.450- 4.500 normal Not Available [facility] ([facility]) [address] [place], [address], 09/21/2024 08:23:47 09/21/19 25 09/21/2024 TSH+F REE T4 T4,free(dire ct) 1.30 NG/dL 0.82-1 .77 normal Not Available [facility] ([facility]) [address] [place], [address], 09/21/2024 08:23:47 09/21/19 25 09/21/2024 CBC WITH DIFFE RENTI AL/PL ATELE T WBC 6.8 x10e3 /uL 3.4-10 .8 normal Not Available [facility] ([facility]) [address] [place], [address], 09/21/2024 08:23:48 09/21/19 25 09/21/2024 CBC WITH DIFFE RENTI AL/PL ATELE T RBC 4.92 x10e6 /uL 3.77-5 .28 normal Not Available [facility] ([facility]) [address] [place], [address], 09/21/2024 08:23:48 09/21/19 25 09/21/2024 CBC WITH DIFFE RENTI AL/PL ATELE T hemoglobin 13.9 g/dL 11.1-1 5.9 normal Not Available [facility] ([facility]) [address] [place], [address], 09/21/2024 08:23:48 09/21/19 25 09/21/2024 CBC WITH DIFFE RENTI AL/PL ATELE T hematocrit 41.8 % 34.0-4 6.6 normal Not Available [facility] ([facility]) [address] [place], [address], 09/21/2024 08:23:48 09/21/19 25 09/21/2024 CBC WITH DIFFE RENTI AL/PL ATELE T MCV 85 fL 79-97 normal Not Available [facility] ([facility]) [address] [place], [address], 09/21/2024 08:23:48 09/21/19 25 09/21/2024 CBC WITH DIFFE RENTI AL/PL ATELE T MCH 28.3 pg 26.6-3 3.0 normal Not Available [facility] ([facility]) [address] [place], [address], 09/21/2024 08:23:48 09/21/19 25 09/21/2024 CBC WITH DIFFE RENTI AL/PL ATELE T MCHC 33.3 g/dL 31.5-3 5.7 normal Not Available [facility] ([facility]) [address] [facility], [place], [address], 09/21/2024 08:23:48 09/21/19 25 09/21/2024 CBC WITH DIFFE RENTI AL/PL ATELE T RDW 12.3 % 11.7-1 5.4 Not Available [facility] ([facility]) [address] [facility], [place], [address], 09/21/2024 08:23:48 09/21/19 25 09/21/2024 CBC WITH DIFFE RENTI AL/PL ATELE T platelets 375 x10e3 /uL 150-45 0 normal Not Available [facility] ([facility]) [address] [place], [address], 09/21/2024 08:23:48 09/21/19 25 09/21/2024 CBC WITH DIFFE RENTI AL/PL ATELE T neutrophils 61 % not estab. normal Not Available [facility] ([facility]) [address] [place], [address], 09/21/2024 08:23:48 09/21/19 25 09/21/2024 CBC WITH DIFFE RENTI AL/PL ATELE T lymphs 28 % not estab. normal Not Available [facility] ([facility]) [address] [place], [address], 09/21/2024 08:23:48 09/21/19 25 09/21/2024 CBC WITH DIFFE RENTI AL/PL ATELE T monocytes 7 % not estab. normal Not Available [facility] ([facility]) [address] [facility], [place], [address], 09/21/2024 08:23:48 09/21/19 25 09/21/2024 CBC WITH DIFFE RENTI AL/PL ATELE T eos 3 % not estab. normal Not Available [facility] ([facility]) [address] [facility], [place], [address], 09/21/2024 08:23:48 09/21/19 25 09/21/2024 CBC WITH DIFFE RENTI AL/PL ATELE T basos 1 % not estab. normal Not Available [facility] ([facility]) [address] [facility], [place], [address], 09/21/2024 08:23:48 09/21/19 25 09/21/2024 CBC WITH DIFFE RENTI AL/PL ATELE T immature cells STEAM LOCOMOTIVE FIRER/FIREMAN Not Available [facility] ([facility]) [address] [place], [address], 09/21/2024 08:23:48 09/21/19 25 09/21/2024 CBC WITH DIFFE RENTI AL/PL ATELE T neutrophils (absolute) 4.2 x10e3 /uL 1.4-7. 0 normal Not Available [facility] ([facility]) [address] [place], [address], 09/21/2024 08:23:48 09/21/19 25 09/21/2024 CBC WITH DIFFE RENTI AL/PL ATELE T lymphs (absolute) 1.9 x10e3 /uL 0.7-3. 1 normal Not Available [facility] ([facility]) [address] [place], [address], 09/21/2024 08:23:48 09/21/19 25 09/21/2024 CBC WITH DIFFE RENTI AL/PL ATELE T monocytes(ab solute) 0.4 x10e3 /uL 0.1-0. 9 normal Not Available [facility] ([facility]) [address] [facility], [place], [address], 09/21/2024 08:23:48 09/21/19 25 09/21/2024 CBC WITH DIFFE RENTI AL/PL ATELE T eos (absolute) 0.2 x10e3 /uL 0.0-0. 4 normal Not Available [facility] ([facility]) [address] [facility], [place], [address], 09/21/2024 08:23:48 09/21/19 25 09/21/2024 CBC WITH DIFFE RENTI AL/PL ATELE T baso (absolute) 0.1 x10e3 /uL 0.0-0. 2 normal Not Available [facility] ([facility]) [address] [facility], [place], [address], 09/21/2024 08:23:48 09/21/19 25 09/21/2024 CBC WITH DIFFE RENTI AL/PL ATELE T immature granulocytes 0 % not estab. Not Available [facility] ([facility]) [address] [facility], [place], [address], 09/21/2024 08:23:48 09/21/19 25 09/21/2024 CBC WITH DIFFE RENTI AL/PL ATELE T immature grans (abs) 0.0 x10e3 /uL 0.0-0. 1 Not Available [facility] ([facility]) [address] [place], [address], 09/21/2024 08:23:48 09/21/19 25 09/21/2024 CBC WITH DIFFE RENTI AL/PL ATELE T NRBC STEAM LOCOMOTIVE FIRER/FIREMAN Not Available [facility] ([facility]) [address] [facility], [place], [address], 09/21/2024 08:23:48 09/21/19 25 09/21/2024 CBC WITH DIFFE RENTI AL/PL ATELE T hematology comments: STEAM LOCOMOTIVE FIRER/FIREMAN Not Available [facility] ([facility]) [address] [facility] [place], [address], 09/21/2024 08:23:48 09/21/19 25 09/21/2024 COMP. METAB OLIC PANEL (14) glucose 85 mg/dL 70-99 normal Not Available [facility] ([facility]) [address] [facility] [place], [address], 09/21/2024 08:23:49 09/21/19 25 09/21/2024 COMP. METAB OLIC PANEL (14) BUN 13 mg/dL 6-24 normal Not Available [facility] ([facility]) [address] [facility] [place], [address], 09/21/2024 08:23:49 09/21/19 25 09/21/2024 COMP. METAB OLIC PANEL (14) creatinine 0.90 mg/dL 0.57-1 .00 normal Not Available [facility] ([facility]) [address] [facility] [place], [address], 09/21/2024 08:23:49 09/21/19 25 09/21/2024 COMP. METAB OLIC PANEL (14) eGFR 81 mL/mi n/1.7 3 >59 normal Not Available [facility] ([facility]) [address] [facility] [place], [address], 09/21/2024 08:23:49 09/21/19 25 09/21/2024 COMP. METAB OLIC PANEL (14) BUN/creatini ne ratio 14 9-23 normal Not Available [facility] ([facility]) [address] [facility] [place], [address], 09/21/2024 08:23:49 09/21/19 25 09/21/2024 COMP. METAB OLIC PANEL (14) sodium 139 mmol/ L 134-14 4 normal Not Available [facility] ([facility]) [address] [facility] [place], [address], 09/21/2024 08:23:49 09/21/19 25 09/21/2024 COMP. METAB OLIC PANEL (14) potassium 4.3 mmol/ L 3.5-5. 2 normal Not Available [facility] ([facility]) [address] [facility] [place], [address], 09/21/2024 08:23:49 09/21/19 25 09/21/2024 COMP. METAB OLIC PANEL (14) chloride 101 mmol/ L 96-106 normal Not Available [facility] ([facility]) [address] [facility] [place], [address], 09/21/2024 08:23:49 09/21/19 25 09/21/2024 COMP. METAB OLIC PANEL (14) carbon dioxide, total 20 mmol/ L 20-29 normal Not Available [facility] ([facility]) [address] [facility] [place], [address], 09/21/2024 08:23:49 09/21/19 25 09/21/2024 COMP. METAB OLIC PANEL (14) calcium 9.4 mg/dL 8.7-10 .2 normal Not Available [facility] ([facility]) [address] [place], [address], 09/21/2024 08:23:49 09/21/19 25 09/21/2024 COMP. METAB OLIC PANEL (14) protein, total 7.5 g/dL 6.0-8. 5 normal Not Available [facility] ([facility]) [address] [facility] [place], [address], 09/21/2024 08:23:49 09/21/19 25 09/21/2024 COMP. METAB OLIC PANEL (14) albumin 4.8 g/dL 3.9-4. 9 normal Not Available [facility] ([facility]) [address] [place], [address], 09/21/2024 08:23:49 09/21/19 25 09/21/2024 COMP. METAB OLIC PANEL (14) globulin, total 2.7 g/dL 1.5-4. 5 Not Available [facility] ([facility]) [address] [facility] [place], [address], 09/21/2024 08:23:49 09/21/19 25 09/21/2024 COMP. METAB OLIC PANEL (14) bilirubin, total 0.4 mg/dL 0.0-1. 2 normal Not Available [facility] ([facility]) [address] [facility] [place], [address], 09/21/2024 08:23:49 09/21/19 25 09/21/2024 COMP. METAB OLIC PANEL (14) alkaline phosphatase 78 IU/L 44-121 normal Not Available [facility] ([facility]) [address] [place], [address], 09/21/2024 08:23:49 09/21/19 25 09/21/2024 COMP. METAB OLIC PANEL (14) AST (SGOT) 13 IU/L 0-40 normal Not Available [facility] ([facility]) [address] [place], [address], 09/21/2024 08:23:49 09/21/19 25 09/21/2024 COMP. METAB OLIC PANEL (14) ALT (SGPT) 14 IU/L 0-32 normal Not Available [facility] ([facility]) [address] [place], [address], 09/21/2024 08:23:49 09/21/19 25 09/21/2024 TEE+L IPASE amylase 62 U/L 31-110 normal Not Available [facility] ([facility]) [address] [place], [address], 09/21/2024 08:23:50 09/21/19 25 09/21/2024 TEE+L IPASE lipase 40 U/L 14-72 normal Not Available [facility] ([facility]) [address] [facility] [place], [address], 09/21/2024 08:23:50 09/21/19 25 09/21/2024 HCG,B ETA SUBUN IT, QNT HCG,beta subunit,qnt, serum <1 mIU/m L Femal e (Non- pregn ant) 0 - 5 (Post menop ausal ) 0 - 8 Femal e (Preg nant) Weeks of Gesta tion 3 6 - 71 4 10 - 750 5 217 - 0323 6 576 - 96179 7 5274 -5936 63 8 98933 -6136 71 9 14299 -8369 10 10 07956 -0671 77 12 53254 -0866 12 14 13929 - 36577 15 85948 - 92641 16 6029 - 60265 17 0795 - 10490 18 5725 - 83873 Zofia ECLIA metho dolog y Not Available [facility] ([facility]) [address] [facility] [place], [address], 09/21/2024 08:23:51 01/10/20 25 01/11/2025 URINE CULTU RE, ROUTI NE urine culture, routine Final report Not Available [facility] ([facility]) [address] [place], [address], 01/11/2025 03:08:10 01/10/20 25 01/11/2025 URINE CULTU RE, ROUTI NE result 1 COMMEN T Cultu re shows less than 10,00 0 colon y formi ng units of bacte shagufta per adonay liter of urine . This colon y count is not gener ally consi dered to be clini odilia signi fican t. Not Available [facility] ([facility]) [address] [place], [address], 01/11/2025 03:08:10 01/10/20 25 01/12/2025 NUSWA B BV+CA ND6+H SV+MY COPL+ TV atopobium vaginae Low - 0 score Not Available [facility] ([facility]) [address] [facility] [place], [address], 01/13/2025 15:11:00 01/10/20 25 01/12/2025 NUSWA B BV+CA ND6+H SV+MY COPL+ TV bvab 2 Low - 0 score Not Available [facility] ([facility]) [address] [facility] [place], [address], 01/13/2025 15:11:00 01/10/20 25 01/12/2025 NUA B [...] prese nce of BV. Not Available [facility] ([facility]) [address] [facility] [place], [address], 01/13/2025 15:11:00 01/10/20 25 01/12/2025 NUA B BV+CA ND6+H SV+MY COPL+ TV xenia albicans, ANTONIO Negati ve negati ve Not Available [facility] ([facility]) [address] [facility] [place], [address], 01/13/2025 15:11:00 01/10/20 25 01/12/2025 NUSWA B BV+CA ND6+H SV+MY COPL+ TV xenia glabrata, ANTONIO Negati ve negati ve Not Available [facility] ([facility]) [address] [facility] [place], [address], 01/13/2025 15:11:00 01/10/20 25 01/12/2025 NUA B BV+CA ND6+H SV+MY COPL+ TV hsv 1 ANTONIO Negati ve negati ve Not Available [facility] ([facility]) [address] [facility] [place], [address], 01/13/2025 15:11:00 01/10/20 25 01/12/2025 NUA B BV+CA ND6+H SV+MY COPL+ TV hsv 2 ANTONIO Negati ve negati ve Not Available [facility] ([facility]) [address] [place], [address], 01/13/2025 15:11:00 01/10/20 25 01/12/2025 NUA B BV+CA ND6+H SV+MY COPL+ TV mycoplasma genitalium ANTONIO Negati ve negati ve Not Available [facility] ([facility]) [address] [facility] [place], [address], 01/13/2025 15:11:00 01/10/20 25 01/12/2025 NUA B BV+CA ND6+H SV+MY COPL+ TV mycoplasma hominis ANTONIO Negati ve negati ve Not Available [facility] ([facility]) [address] [facility] [place], [address], 01/13/2025 15:11:00 01/10/20 25 01/12/2025 NUA B BV+CA ND6+H SV+MY COPL+ TV ureaplasma spp ANTONIO Negati ve negati ve Not Available [facility] ([facility]) [address] [place], [address], 01/13/2025 15:11:00 01/10/20 25 01/13/2025 NUA B BV+CA ND6+H SV+MY COPL+ TV C parapsilosis /tropicalis Negati ve negati ve This assay does not diffe renti ate C. tropi calis and C. parap wisam is. Not Available [facility] ([facility]) [address] [facility] [place], [address], 01/13/2025 15:11:00 01/10/20 25 01/13/2025 NUSWA B BV+CA ND6+H SV+MY COPL+ TV xenia lusitaniae, ANTONIO Negati ve negati ve Not Available [facility] ([facility]) [address] [facility] [place], [address], 01/13/2025 15:11:00 01/10/20 25 01/13/2025 NUSWA B BV+CA ND6+H SV+MY COPL+ TV xenia krusei, ANTONIO Negati ve negati ve Not Available [facility] ([facility]) [address] [facility] [place], [address], 01/13/2025 15:11:00 01/10/20 25 01/13/2025 NUSWA B BV+CA ND6+H SV+MY COPL+ TV trich vag by ANTONIO Negati ve negati ve Not Available [facility] ([facility]) [address] [facility] [place], [address], 01/13/2025 15:11:00 01/10/20 25 01/09/2025 urina lysis , dipst ick Leukocytes Trace Not Available Durhamjayson nova [employer] [address] [place] [address] , [place], [address], 01/09/2025 11:36:53 01/10/20 25 01/09/2025 urina lysis , dipst ick Nitrite negati ve Not Available Henrietta [employer] [address] [place] [address] , [place], [address], 01/09/2025 11:36:53 01/10/20 25 01/09/2025 urina lysis , dipst ick Protein Negati ve Not Available Henrietta [employer] [address] [place] [address] , [place], [address], 01/09/2025 11:36:53 01/10/20 25 01/09/2025 urina lysis , dipst ick Blood Negati ve Not Available Henrietta [employer] [address] [place] [address] , [place], [address], 01/09/2025 11:36:53 01/10/20 25 01/09/2025 urina lysis , dipst ick Ketone Negati ve Not Available Henrietta [employer] [address] [place] [address] , [place], [address], 01/09/2025 11:36:53 01/10/20 25 01/09/2025 urina lysis , dipst ick Bilirubin Negati ve Not Available Henrietta [employer] [address] [place] [address] , [place], [address], 01/09/2025 11:36:53 01/10/20 25 01/09/2025 urina lysis , dipst ick Glucose Negati ve Not Available Henrietta [employer] [address] [place] [address] , [place], [address], 01/09/2025 11:36:53 05/01/20 25 05/02/2025 CBC WITH DIFFE RENTI AL/PL ATELE T WBC 6.3 x10e3 /uL 3.4-10 .8 normal Not Available [facility] ([facility]) [address] [place], [address], 05/02/2025 12:07:57 05/01/2005/02/2025 CBC WITH DIFFE RENTI AL/PL ATELE T RBC 4.83 x10e6 /uL 3.77-5 .28 normal Not Available [facility] ([facility]) [address] [place], [address], 05/02/2025 12:07:57 05/01/20 05/02/2025 CBC WITH DIFFE RENTI AL/PL ATELE T hemoglobin 13.1 g/dL 11.1-1 5.9 normal Not Available [facility] ([facility]) [address] [place], [address], 05/02/2025 12:07:57 05/01/2005/02/2025 CBC WITH DIFFE RENTI AL/PL ATELE T hematocrit 41.8 % 34.0-4 6.6 normal Not Available [facility] ([facility]) [address] [facility] [place], [address], 05/02/2025 12:07:57 05/01/2005/02/2025 CBC WITH DIFFE RENTI AL/PL ATELE T MCV 87 fL 79-97 normal Not Available [facility] ([facility]) [address] [place], [address], 05/02/2025 12:07:57 05/01/2005/02/2025 CBC WITH DIFFE RENTI AL/PL ATELE T MCH 27.1 pg 26.6-3 3.0 normal Not Available [facility] ([facility]) [address] [place], [address], 05/02/2025 12:07:57 05/01/2005/02/2025 CBC WITH DIFFE RENTI AL/PL ATELE T MCHC 31.3 g/dL 31.5-3 5.7 below low normal Not Available [facility] ([facility]) [address] [place], [address], 05/02/2025 12:07:57 05/01/2005/02/2025 CBC WITH DIFFE RENTI AL/PL ATELE T RDW 12.8 % 11.7-1 5.4 Not Available [facility] ([facility]) [address] [place], [address], 05/02/2025 12:07:57 05/01/2005/02/2025 CBC WITH DIFFE RENTI AL/PL ATELE T platelets 322 x10e3 /uL 150-45 0 normal Not Available [facility] ([facility]) [address] [facility] [place], [address], 05/02/2025 12:07:57 05/01/2005/02/2025 CBC WITH DIFFE RENTI AL/PL ATELE T neutrophils 64 % not estab. normal Not Available [facility] ([facility]) [address] [facility] [place], [address], 05/02/2025 12:07:57 05/01/2005/02/2025 CBC WITH DIFFE RENTI AL/PL ATELE T lymphs 25 % not estab. normal Not Available [facility] ([facility]) [address] [facility] [place], [address], 05/02/2025 12:07:57 05/01/2005/02/2025 CBC WITH DIFFE RENTI AL/PL ATELE T monocytes 6 % not estab. normal Not Available [facility] ([facility]) [address] [facility] [place], [address], 05/02/2025 12:07:57 05/01/2005/02/2025 CBC WITH DIFFE RENTI AL/PL ATELE T eos 4 % not estab. normal Not Available [facility] ([facility]) [address] [facility], [place], [address], 05/02/2025 12:07:57 05/01/2005/02/2025 CBC WITH DIFFE RENTI AL/PL ATELE T basos 1 % not estab. normal Not Available [facility] ([facility]) [address] [facility], [place], [address], 05/02/2025 12:07:57 05/01/2005/02/2025 CBC WITH DIFFE RENTI AL/PL ATELE T immature cells STEAM LOCOMOTIVE FIRER/FIREMAN Not Available [facility] ([facility]) [address] [facility], [place], [address], 05/02/2025 12:07:57 05/01/2005/02/2025 CBC WITH DIFFE RENTI AL/PL ATELE T neutrophils (absolute) 4.1 x10e3 /uL 1.4-7. 0 normal Not Available [facility] ([facility]) [address] [facility], [place], [address], 05/02/2025 12:07:57 05/01/2005/02/2025 CBC WITH DIFFE RENTI AL/PL ATELE T lymphs (absolute) 1.6 x10e3 /uL 0.7-3. 1 normal Not Available [facility] ([facility]) [address] [facility], [place], [address], 05/02/2025 12:07:57 05/01/2005/02/2025 CBC WITH DIFFE RENTI AL/PL ATELE T monocytes(ab solute) 0.4 x10e3 /uL 0.1-0. 9 normal Not Available [facility] ([facility]) [address] [place], [address], 05/02/2025 12:07:57 05/01/2005/02/2025 CBC WITH DIFFE RENTI AL/PL ATELE T eos (absolute) 0.2 x10e3 /uL 0.0-0. 4 normal Not Available [facility] ([facility]) [address] [place], [address], 05/02/2025 12:07:57 05/01/2005/02/2025 CBC WITH DIFFE RENTI AL/PL ATELE T baso (absolute) 0.1 x10e3 /uL 0.0-0. 2 normal Not Available [facility] ([facility]) [address] [place], [address], 05/02/2025 12:07:57 05/01/2005/02/2025 CBC WITH DIFFE RENTI AL/PL ATELE T immature granulocytes 0 % not estab. Not Available [facility] ([facility]) [address] [facility], [place], [address], 05/02/2025 12:07:57 05/01/2005/02/2025 CBC WITH DIFFE RENTI AL/PL ATELE T immature grans (abs) 0.0 x10e3 /uL 0.0-0. 1 Not Available [facility] ([facility]) [address] [facility], [place], [address], 05/02/2025 12:07:57 05/01/2005/02/2025 CBC WITH DIFFE RENTI AL/PL ATELE T NRBC STEAM LOCOMOTIVE FIRER/FIREMAN Not Available [facility] ([facility]) [address] [facility], [place], [address], 05/02/2025 12:07:57 05/01/2005/02/2025 CBC WITH DIFFE RENTI AL/PL ATELE T hematology comments: STEAM LOCOMOTIVE FIRER/FIREMAN Not Available [facility] ([facility]) [address] [facility], [place], [address], 05/02/2025 12:07:57 05/01/2005/02/2025 COMP. METAB OLIC PANEL (14) glucose 85 mg/dL 70-99 normal Not Available [facility] ([facility]) [address] [facility], [place], [address], 05/02/2025 12:07:57 05/01/2005/02/2025 COMP. METAB OLIC PANEL (14) BUN 12 mg/dL 6-24 normal Not Available [facility] ([facility]) [address] [facility], [place], [address], 05/02/2025 12:07:57 05/01/20 25 05/02/2025 COMP. METAB OLIC PANEL (14) creatinine 0.95 mg/dL 0.57-1 .00 normal Not Available [facility] ([facility]) [address] [facility], [place], [address], 05/02/2025 12:07:57 05/01/2005/02/2025 COMP. METAB OLIC PANEL (14) eGFR 75 mL/mi n/1.7 3 >59 normal Not Available [facility] ([facility]) [address] [facility], [place], [address], 05/02/2025 12:07:57 05/01/2005/02/2025 COMP. METAB OLIC PANEL (14) BUN/creatini ne ratio 13 9-23 normal Not Available [facility] ([facility]) [address] [facility], [place], [address], 05/02/2025 12:07:57 05/01/2005/02/2025 COMP. METAB OLIC PANEL (14) sodium 139 mmol/ L 134-14 4 normal Not Available [facility] ([facility]) [address] [facility], [place], [address], 05/02/2025 12:07:57 05/01/2005/02/2025 COMP. METAB OLIC PANEL (14) potassium 4.4 mmol/ L 3.5-5. 2 normal Not Available [facility] ([facility]) [address] [facility], [place], [address], 05/02/2025 12:07:57 05/01/2005/02/2025 COMP. METAB OLIC PANEL (14) chloride 102 mmol/ L 96-106 normal Not Available [facility] ([facility]) [address] [facility] [place], [address], 05/02/2025 12:07:57 05/01/2005/02/2025 COMP. METAB OLIC PANEL (14) carbon dioxide, total 24 mmol/ L 20-29 normal Not Available [facility] ([facility]) [address] [facility] [place], [address], 05/02/2025 12:07:57 05/01/2005/02/2025 COMP. METAB OLIC PANEL (14) calcium 9.3 mg/dL 8.7-10 .2 normal Not Available [facility] ([facility]) [address] [facility], [place], [address], 05/02/2025 12:07:57 05/01/2005/02/2025 COMP. METAB OLIC PANEL (14) protein, total 7.2 g/dL 6.0-8. 5 normal Not Available [facility] ([facility]) [address] [facility] [place], [address], 05/02/2025 12:07:57 05/01/2005/02/2025 COMP. METAB OLIC PANEL (14) albumin 4.5 g/dL 3.9-4. 9 normal Not Available [facility] ([facility]) [address] [facility] [place], [address], 05/02/2025 12:07:57 05/01/2005/02/2025 COMP. METAB OLIC PANEL (14) globulin, total 2.7 g/dL 1.5-4. 5 Not Available [facility] ([facility]) [address] [facility] [place], [address], 05/02/2025 12:07:57 05/01/2005/02/2025 COMP. METAB OLIC PANEL (14) bilirubin, total 0.4 mg/dL 0.0-1. 2 normal Not Available [facility] ([facility]) [address] [facility] [place], [address], 05/02/2025 12:07:57 05/01/2005/02/2025 COMP. METAB OLIC PANEL (14) alkaline phosphatase 74 IU/L 41-116 normal Not Available [facility] ([facility]) [address] [facility], [place], [address], 05/02/2025 12:07:57 05/01/20 25 05/02/2025 COMP. METAB OLIC PANEL (14) AST (SGOT) 13 IU/L 0-40 normal Not Available [facility] ([facility]) [address] [facility], [place], [address], 05/02/2025 12:07:57 05/01/20 25 05/02/2025 COMP. METAB OLIC PANEL (14) ALT (SGPT) 19 IU/L 0-32 normal Not Available [facility] ([facility]) [address] [facility], [place], [address], 05/02/2025 12:07:57 05/01/2005/02/2025 TEE+L IPASE amylase 49 U/L 31-110 normal Not Available [facility] ([facility]) [address] [facility], [place], [address], 05/02/2025 12:07:58 05/01/20 25 05/02/2025 TEE+L IPASE lipase 31 U/L 14-72 normal Not Available [facility] ([facility]) [address] [facility], [place], [address], 05/02/2025 12:07:58 10/06/19 25 10/05/2024 US, trans vagin al No observ ation record ed. [email or web address] Henrietta [employer] [address] [facility] , [place], [address], 10/23/2024 15:17:09 10/07/19 US, trans vagin al No observ ation record ed. [email or web address] Henrietta [employer] [address] [facility] , [place], [address], 10/23/2024 15:17:10 10/14/19 US, abdom en, limit ed No observ ation record ed. [email or web address] Not Available 2024 08:37:31 10/27/19 25 10/05/2024 US, trans vagin al No observ ation record ed. [email or web address] Henrietta [employer] [address] [facility] , [place], [address], 10/26/2024 11:36:57 01/11/20 25 11/12/2022 medic al recor d reque st* No observ ation record ed. [email or web address] [address], [place], [address], 01/11/2025 08:57:20 05/04/[address], abdom en, w/o contr ast No observ ation record ed. hilda [facility] [address] [facility], [place], [address], 05/12/2025 08:37:14 05/17/[address], abdom en, w/wo contr ast No observ ation record ed. cynthia [facility] [address] [facility], [place], [address], 05/18/2025 15:25:08 05/26/20 25 05/26/2025 NM, hepat obili jonnie scan, w/ CCK No observ ation record ed. [facility] [address], [place], [address], 05/29/2025 15:41:21 Result Notes None recorded. Problems Name Problem SNOMED Code Status Onset Date Resolution Date Notes Provider Name and Address Organization Details Recorded Time Anxiety 55468802 Active 2024 Anuja Fierro null, [place] - [facility] 15:02:13 Acid reflux 922476166 Active 2024 Anuja Fierro [place], [place] - [facility] 15:02:23 Vaginal discharge 662712172 Active 2024 Margarita Salguero null, [place] - [facility] 11:04:28 Obese class II 554736140846 105 Active 2024 Margarita Salguero null, [place] - [facility] 5 11:04:49 Body mass index 40+ - severely obese 664591162 Active 2024 Magrarita garica, [place] - [facility] 5 11:45:04 Lesion of genitalia 969034388 Active 2024 Anuja Hallado-Ort iz, DO [address], [place], [address], [place] - [facility] 5 12:07:53 Problem Notes None recorded. Procedures Surgical [...] Address Organization Details Last Updated DateTime 09/20/2024 06547.54 g 39.7 kg/m2 157.48 cm 0 132/84 mm[Hg] Anuja Fierro [place] - [facility] 15:07:19 Date Recorded Body height Body mass index (BMI) Body weight Pain severity - 0-10 verbal numeric rating [Score] - Reported Systolic And Diastolic Provider Name and Address Organization Details Last Updated DateTime 10/05/2024 157.48 cm 39.7 kg/m2 33620.54 g 0 118/82 mm[Hg] Anuja Fierro [place] - [facility] 14:07:40 Date Recorded Body height Body mass index (BMI) Body weight Systolic And Diastolic Provider Name and Address Organization Details Last Updated DateTime 01/09/2025 157.48 cm 42.6 kg/m2 136272.3 g 110/80 mm[Hg] Margarita Salguero [place] - [facility] 01/09/2025 11:41:16 Date Recorded Body height Body mass index (BMI) Body weight Body temperature Heart rate Oxygen saturation Respiratory rate Pain severity - 0-10 verbal numeric rating [Score] - Reported Systolic And Diastolic Provider Name and Address Organization Details Last Updated DateTime 157.48 cm 43.7 kg/m2 460987. 58 g 97.5 [degF] 67 /min 98 % 18 /min 1 117/78 mm[Hg] Barbara Lam [place] - [facility] 10:35:18 Social History Question Answer Notes LastModified by Organizat ion Details LastModified Time Tobacco Smoking Status Former Smoker Quit 2002 Anuja Sri garcia, [place] - [facility] 09/20/2024 15:05:34 Do You Have An Advance Directive? No [email or web address] Information not available 01/09/2025 Are You Blind Or Do You Have Difficulty Seeing? No [email or web address] Information not available 01/09/2025 Is Blood Transfusion Acceptable In An Emergency? Yes [email or web address] Information not available 01/09/2025 What Is Your Level Of Caffeine Consumption? Occasional Information not available 01/09/2025 In The 14 Days Before Symptom Onset, Have You Had Close Contact With A Laboratory-confi rmed COVID-19 While That Case Was Ill? No [email or web address] Information not available 01/09/2025 In The 14 Days Before Symptom Onset, Have You Had Close Contact With A Person Who Is Under Investigation For COVID-19 While That Person Was Ill? No [email or web address] Information not available 01/09/2025 Have You Been To An Area Known To Be High Risk For COVID-19? No [email or web address] Information not available 01/09/2025 Are You Deaf Or Do You Have Serious Difficulty Hearing? No [email or web address] Information not available 01/09/2025 What Type Of Diet Are You Following? REGULAR [email or web address] Information not available 01/09/2025 Have You Processed Blood Or Body Fluids From An Ebola Virus Disease Patient Without Appropriate PPE? No Information not available 01/09/2025 Do You Reside In Or Have You Traveled To An Area Where Ebola Virus Transmission Is Active? No Information not available 01/09/2025 Have There Been Any Changes To Your Family Or Social Situation? No [email or web address] Information not available 01/09/2025 What Is The Fluoride Status Of Your Home? Fluoridated Information not available 01/09/2025 When Did You Quit Smoking? 16+yearssincelas tcigarette [email or web address] Information not available 01/09/2025 Have You Recently Or Are You Planning To Travel To An Area With Zika Virus? No [email or web address] Information not available 01/09/2025 Do You Have A Medical Power Of Senior Premium Auditor? No [email or web address] Information not available 01/09/2025 What Was The Date Of Your Most Recent Tobacco Screening? 01/09/2025 Information not available 01/09/2025 What Is Your Current Pack Years? 10packyears [email or web address] Information not available 01/09/2025 Do You Use Protection During Sex? No [email or web address] Information not available 01/09/2025 Do You Use Protection Against STDs? No [email or web address] Information not available 01/09/2025 What Is Your Relationship Status? Information not available 01/09/2025 Are You Sexually Active? Yes [email or web address] Information not available 01/09/2025 Do You Have Smoke And Carbon Monoxide Detectors In Your Home? Yes [email or web address] Information not available 01/09/2025 Are You Passively Exposed To Smoke? No Information not available 01/09/2025 How Much Tobacco Do You Smoke? No [email or web address] Information not available 01/09/2025 Has Tobacco Cessation Counseling Been Provided? No Information not available 01/09/2025 How Many Years Have You Smoked Tobacco? 5 [email or web address] Information not available 09/20/2024 Do You Have Difficulty Walking Or Climbing Stairs? No [email or web address] Information not available 01/09/2025 What Contraceptive Method Was Reported At Start Of This Visit? IUD With Progestin [email or web address] Information not available 01/09/2025 What Contraceptive Method Was Reported At End Of This Visit? IUD With Progestin [email or web address] Information not available 01/09/2025 Do You Want To Talk About Contraception Or Prevention During Your Visit Today? No - I Do Not Want To Talk About Contraception Today Because I Am Here For Something Else [email or web address] Information not available 01/09/2025 Do You Have Any Future Plans To Get ? No, I Don't Want To Become Information not available 01/09/2025 Sex: Female Functional Status Question Answer Note LastModified by Organizat ion Details LastModified Time Do you use any illicit or recreational drugs? No [email or web address] Information not available 09/20/2024 Do you or have you ever used any other forms of tobacco or nicotine? No [email or web address] Information not available 09/20/2024 What is your level of alcohol consumption? None [email or web address] Information not available 01/09/2025 Do you have transportation difficulties? No [email or web address] Information not available 01/09/2025 What is your status? Not [email or web address] Information no t available 01/09/2025 Are you able to walk independently without assistance or assistive devices? YESWOREST [email or web address] Information not available 01/09/2025 Do you have difficulty doing errands alone? No [email or web address] Information not available 01/09/2025 Are you able to care for yourself independently? Yes [email or web address] Information not available 01/09/2025 Do you have difficulty dressing, bathing, grooming, or toileting? No [email or web address] Information not available 01/09/2025 What is your exercise level? Occasional [email or web address] Information not available 01/09/2025 Mental Status Question Answer Note LastModified by Organizat ion Details LastModified Time Do you feel stressed (tense, restless, nervous, or anxious, or unable to sleep at night)? [id number] [email or web address] Information not available 01/09/2025 Do you have difficulty concentrating, remembering or making decisions? No [email or web address] Information no t available 01/09/2025 Family History Relationship Description Onset Age of this Age Resolved Age Notes LastModified by Organization Details LastModified Time Father No current problems or disability Not available 15:04:46 Mother No current problems or disability [email or web address] Not available 15:04:46 Medical History No medical [...] Vaccine Type Date Status Note Provider Nam carleen and Address Organization Details Recorded Time Influenza, split virus, trivalent, PF 6 completed Not Available [facility] 05/01/2025 10:18:08 COVID-19, mRNA, LNP-S, PF, 100 mcg/0.5mL dose or 50 mcg/0.25mL dose 1 completed Not Available [facility] 05/01/2025 10:18:08 COVID-19, mRNA, LNP-S, PF, 100 mcg/0.5mL dose or 50 mcg/0.25mL dose 1 completed Not Available [facility] 05/01/2025 10:18:08 COVID-19, mRNA, LNP-S, PF, 100 mcg/0.5mL dose or 50 mcg/0.25mL dose 1 completed Not Available [facility] 05/01/2025 10:18:08 Influenza, split virus, quadrivalent, PF 1 completed Not Available [facility] 05/01/2025 10:18:08 Influenza, MDCK, quadrivalent, PF 3 completed Not Available [facility] 05/01/2025 10:18:08 Influenza, split virus, trivalent, preservative 4 completed Anaya Arreaga null, [place] - [facility] 03/17/2024 14:07:15 Influenza, split virus, trivalent, PF 5 completed Radha Iglesias null, [place] - [facility] 05/01/2025 13:08:40 Past Encounters Encounter ID Performer Location Encounter Start Date Encounter Closed Date Diagnosis/Indication Diagnosis SNOMED-CT Code Diagnosis ICD10 Code Diagnosis IMO Codes Diagnosis Note [id number] Shana Young DO [facility] [address] [place] [address] 03/17/2024 13:56:08 03/17/2024 14:06:35 Influenza vaccine needed 5576825887 106 Z23 [id number] MD Yee Cartagena [facility] [address] [place] [address] [place] [address] 09/20/2024 14:45:25 09/20/2024 15:40:21 Abdominal bloating 074992914 R14.0 Anxiety 15176285 F41.9 Heartburn 22243478 R12 Hot sweats 219239128 R61 [id number] MD Yee Cartagena [facility] [address] [place] [address] [place] [id number] 10/05/2024 13:23:19 10/05/2024 14:13:36 Abdominal bloating 596539747 R14.0 Anxiety 78151063 F41.9 Hot sweats 921407435 R61 [id number] ANUJA ARANDA DO [place] [facility] [address] [place] [address] 01/09/2025 11:24:59 01/09/2025 12:08:10 Vaginal discharge 977107204 N89.8 19474 Obese class II 483767417 1 78661 E66.812 Z68.39 [id number] Medical re cords review 169378170 Z76.89 8806426771 Body mass index 40+ - severely obese 821404373 E66.813 Z68.41 7901274 Lesion of genitalia 7243 05196 R39.89 134181 Intermitte nt sore on labia for >1 year. Per patient, had HSV blood testing and it was negative. No sores seen on today's exam, overall healthy vaginal mucosa. Will await NuSwab. Discussed returning when she does find a sore to see if it can be cultured. [id number] Franc Elizabeth APRN [address] [address] 05/01/2025 10:15:13 05/01/2025 11:19:15 Influenza vaccine needed 0253009804 106 Z23 Body mass index 40+ - severely obese 616567098 E66.813 Z68.41 3545436 43.7 Upper abdominal pain 831 68405 R10.10 7427255 Health Concerns Section Related Observation LastModified by Organization Detai ls LastModified Time None Recorded Concern Status LastModified by Organization Details LastModified Time None Recorded Advance Directives Directive N: Payers Insurance Date Sequence Insurance Name Policy Number Policy Graham Covered Member ID Graham Member ID Guarantor Name 05/21/2025 1 [place] [id number] Liborio Leyva [id number] Nicole Leyva Notes Date Note Type [...] flashes. Pamela Wilson MD [address], [place], [address], [place] - [facility] 09/23/2024 09:50:53 10/05/2024 text/html ROS as noted in the HPI Nicole is here for pelvic US given abdominal bloating. She is otherwise doing well. Her GI symptoms have improved. She still plans to get the RUQ US. Pamela Wilson MD [address], [place], [address], [place] [facility] 10/23/2024 15:13:31 01/09/2025 text/html VaginitisReporte [...] treating her anxiety with medication. Anuja Lynn , [address], [place], [address], [place] - [facility] 01/09/2025 12:10:18 05/01/2025 text/html ROS as noted in the HPI 45 yr old female presents for possible gallbladder issues or hernia. She has had symptoms off and on for a year. Intermittent bilateral pain under breast and burning in stomach. Pain also goes to back, between shoulder blades, and left shoulder. Pain worse after eating fatty or spicy food Franc Elizabeth APRN [address], [place], [address], [place] - [facility] 05/01/2025 10:58:09 OBGyn Episode No OBEpisode recorded.
[2025-06-13 16:16] LABS: Pancreatic Elastase, Fecal >800 (>200)
[2025-06-14 08:23] LABS: Calprotectin, Fecal 68 ug/g (0-120)
== END 2025-06-10 23:59 | disposition home or self-care (01) ==
LOC: LAB 12:19
PROVIDERS: PCP Nurse Practitioner Family; Visit Provider Nurse Practitioner Family
DX: R93.3 Abnormal findings on diagnostic imaging of other parts of digestive tract (principal); R14.0 Abdominal distension (gaseous)
CPT/HCPCS: 82653; 83993